=== PATIENT | female | born 1935 | race Hispanic/Latino ===

== ENCOUNTER 2017-04-14 12:26 | Inpatient (IN) | payer MEDICARE, BC ==
[2017-04-14] MEDS ORDERED: cefTRIAXone 1 gm 1 GM/100 ML BAG IVPB STA (13:07)
--- NOTE | 2017-04-14 13:43 | ED PDOC ---
Arrival/HPI - General Chief Complaint: Lower Extremity Problem/Injury Time Seen by Provider: 04/14/17 12:52 Historian: Patient, Family (daughters ) - History of Present Illness Narrative History of Present Illness (Text): 04/14/17 13:30 A 82 year old female whose past medical history includes diabetes, acute cholecysitis, ventral hernia, and leukocytosis, presents to the emergency department accompanied by daughters who state they discovered the patient's legs swollen, red, and draining 10 days ago. The patient states she has been unable to lay down because her legs were constantly draining and she was afraid to wet the bed. The patient's daughter states she has been trying to clean it with hydrogen peroxide and keeping it covered. The patient denies any pain to the area, but notes shortness of breath and gets easily winded. PMD: Dr. Omalley Time/Duration: > week (10 days ) Symptom Onset: Sudden Symptom Course: Unchanged Context: Home Past Medical History - Provider Review Nursing Documentation Reviewed: Yes - Infectious Disease Hx of Infectious Diseases: None - Tetanus Immunization Tetanus Immunization: Unknown - Cardiac Hx Hypertension: Yes - HEENT Hx Cataracts: Yes (bilateral sx 2012) - Endocrine/Metabolic Hx Diabetes Mellitus Type 2: Yes - Hematological/Oncological Hx Blood Transfusions: No Hx Blood Transfusion Reaction: No - Musculoskeletal/Rheumatological Hx Falls: No - Psychiatric Hx Depression: No Hx Emotional Abuse: No Hx Physical Abuse: No Hx Substance Use: No - Surgical History Hx Cholecystectomy: Yes ([address] hewitt) - Anesthesia Hx Anesthesia Reactions: No Hx Malignant Hyperthermia: No - Suicidal Assessment Feels Threatened In Home Enviroment: No Family/Social History - Physician Review Nursing Documentation Reviewed: Yes Family/Social History: No Known Family HX Smoking Status: Former Smoker Hx Alcohol Use: No Hx Substance Use: No Hx Substance Use Treatment: No Allergies/Home Meds Allergies/Adverse Reactions: Allergies No Known Allergies Allergy (Verified 04/14/17 23:35) Home Medications: Home Meds Medication Instructions Recorded Confirmed Acarbose [Precose] 100 mg PO DAILY 10/01/13 04/14/17 Aspirin [Bernarda Aspirin Children[facility]] 81 mg PO DAILY 10/01/13 04/14/17 Atorvastatin Calcium [Lipitor] 20 mg PO DAILY 10/01/13 04/14/17 metFORMIN [glucOPHAGE] 500 mg PO BID 10/01/13 04/14/17 Bisoprolol/HCTZ [Ziac 2.5-6.25 mg] 1 tab PO DAILY 04/14/17 04/14/17 GlipiZIDE [Glipizide] 10 mg PO DAILY 04/14/17 04/14/17 Omeprazole 20 mg PO DAILY 04/14/17 04/14/17 Valsartan/Hydrochlorothiazide 1 each PO DAILY 04/14/17 04/14/17 [Diovan Hct 320-25 mg Tablet] Review of Systems - Review of Systems Constitutional: Fatigue. absent: Fevers Eyes: absent: Vision Changes ENT: absent: Hearing Changes Respiratory: SOB, Cough Cardiovascular: Edema, FRASER. absent: Chest Pain, Palpitations Gastrointestinal: absent: Abdominal Pain, Nausea, Vomiting Genitourinary Female: absent: Dysuria, Frequency Musculoskeletal: Other (bilateral leg swelling and redness ). absent: Back Pain Skin: Rash, Cellulitis Neurological: absent: Headache, Dizziness, Focal Weakness Endocrine: absent: Polyuria Hemo/Lymphatic: absent: Easy Bleeding Physical Exam - Physical Exam Narrative Physical Exam (Text): 04/14/17 13:42 Head: Atraumatic. Normocephalic. Eyes: PERRL. EOMI. Conjunctivae are not pale. ENT: Mucous membranes are moist and intact. Oropharynx is clear and symmetric. Neck: Supple. Full ROM. Positive JVD. No meningeal signs. Cardiovascular: Irregular rate and rhythm, systolic murmur. Pulmonary/Chest: No evidence of respiratory distress. Rales at the bases right greater than left. Abdominal: Soft and non-distended. There is no tenderness. No rebound, guarding, or rigidity. No organomegaly. Good bowel sounds. Back: No CVA tenderness. Extremities: Bilateral lower extremity edema with clear but foul smelling drainage with erythema. Skin: Bilateral lower extremity edema and erythema with foul odor. Neurological: Alert, awake, and oriented. Motor and sensory exam intact. Psychiatric: Good eye contact. Normal interaction, affect, and behavior. Vital Signs Reviewed: Yes Vital Signs Temp Pulse Resp BP Pulse Ox 04/14/17 17:15 71 18 123/61 96 04/14/17 15:40 75 18 127/68 95 04/14/17 13:56 78 18 123/64 95 04/14/17 12:38 97.9 F 81 19 125/63 95 04/14/17 12:36 97.9 F 81 18 125/63 95 Temperature: Afebrile Pulse: Irregular Appearance: Positive for: Non-Toxic, Comfortable, Ill-Appearing Pain Distress: Mild Mental Status: Positive for: Alert and Oriented X 3 Medical Decision Making ED Course and Treatment: 04/14/17 13:43 Impression: A 82 year old female with bilateral lower extremity swelling and erythema. Patient on arrival noted to be in irregular rhythm. DENIES CHEST PAIN OR SOB. CXR consistent with pleural effusion and chf. Bilateral leg edema noted with foul odor. IV antibiotics ordered. Patient not in respiratory distress. CR elevated, will discuss diuretics with admitting team as no respiratory distress initially. Heparin bolus and drip ordered for new onset atrial fibrillation. Patient accepted by Dr. Gerardo Pelaez to his service. Progress Notes: 04/14/2017 15:23 Chest X-ray IMPRESSION: Small bilateral pleural effusion, right greater than left. Dictator: Arpan Chen MD Based on EKG, cannot exclude anteroseptal infarct although patient and family deny any chest pain or acute onset of symptoms, more gradual edema reported. Troponin 0.05, BNP elevated. On re-exam, denies any chest pain or shortness of breath. Based on lack of acute chest pain or acute sob, ST changes on EKG I feel at this time not consistent with acute HI although risk of cardiac disease discussed with patient and family and she will be admitted. ASA ordered by admitting physician. - Lab Interpretations Microbiology Results: Microbiology Results 04/14/17 14:53 Blood Blood Culture - Preliminary NO GROWTH AFTER 3 DAYS 04/14/17 14:12 Blood Blood Culture - Preliminary NO GROWTH AFTER 3 DAYS 04/14/17 15:50 Urine Urine Culture - Final Aerococcus Viridans Lab Results: 04/14/17 14:12 04/14/17 15:26 Lab Results 04/14/17 15:50: Urine Color Light yellow, Urine Appearance Cloudy, Urine pH 6.0 , Ur Specific Mcclusky 1.025, Urine Protein >=300 H, Urine Glucose (UA) Negative , Urine Ketones Negative, Urine Blood Trace-intact H, Urine Nitrate Negative, Urine Bilirubin Negative, Urine Urobilinogen 0.2, Ur Leukocyte Esterase Small H , Urine RBC 10 - 15, Urine WBC 25 - 30, Ur Epithelial Cells 1 - 3, Amorphous Sediment Few, Urine Bacteria Large, Urine Other Uyeast 04/14/17 15:26: Sodium 140, Chloride 106, Potassium 3.5 L, Carbon Dioxide 25, Anion Gap 12, BUN 35 H, Creatinine 2.3 H, Est GFR ( Amer) 25, Est GFR ( Non-Af Amer) 20, Random Glucose 119 H, Calcium 9.4, Total Bilirubin 0.4, AST 20 , ALT 32, Alkaline Phosphatase 197 H, Lactate Dehydrogenase 487, Total Creatine Kinase 50, Troponin I 0.05 D, NT-Pro-B Natriuret Pep 24689 H, Total Protein 6.3 , Albumin 3.3, Globulin 3.0, Albumin/Globulin Ratio 1.1 04/14/17 14:12: pO2 27 L, VBG pH 7.37, VBG pCO2 40.0, VBG HCO3 23.1, VBG Total CO2 24.3, VBG O2 Sat (Calc) 57.0, VBG Base Excess -2.0 L, VBG Potassium 8.2 H*, Sodium 134.0, Chloride 108.0 H, Glucose 107 H, Lactate 1.5, FiO2 21.0, Venous Blood Potassium 8.2 H* 04/14/17 14:12: PT 13.0 H, INR 1.19 H, APTT 30.7 04/14/17 14:12: WBC 10.9, RBC 3.93, Hgb 11.5 L, Hct 36.3, MCV 92.4, MCH 29.3, MCHC 31.7, RDW 15.0 H, Plt Count 284, MPV 11.3 H, Gran % 74.0 H, Lymph % (Auto) 15.8 L, Imperial % (Auto) 6.3 H, Eos % (Auto) 3.6, Baso % (Auto) 0.3, Gran # 8.06 H , Lymph # 1.7, Imperial # 0.7 H, Eos # 0.4, Baso # 0.03 I have reviewed the lab results: Yes - RAD Interpretation Radiology Orders: 04/14/17 13:06 CHEST PORTABLE [RAD] Stat - EKG Interpretation EKG Interpretation (Text): 04/14/17 19:22 EKG atrial fibrillation rate of 86 with intraventricular block, anterior st changes Interpreted by ED Physician: Yes Type: 12 lead EKG Comparison: Different from prev. EKG - Medication Orders Current Medication Orders: Discontinued Medications Acarbose (Precose 50 Mg Tab) 100 mg PO DAILY [facility] Last Admin: 04/17/17 09:54 Dose: 100 mg Albuterol/Ipratropium (Duoneb 3 Mg/0.5 Mg (3 Ml) Ud) 3 ml IH [id number] PRN PRN Reason: Shortness of Breath Last Admin: 04/14/17 20:38 Dose: 3 ml Apixaban (Eliquis) 2.5 mg PO BID [facility] PRN Reason: Protocol Last Admin: 04/16/17 17:05 Dose: 2.5 mg Aspirin (Aspirin Chewable) 81 mg PO DAILY [facility] Last Admin: 04/17/17 09:55 Dose: 81 mg Atorvastatin Calcium (Lipitor) 20 mg PO HS [facility] Last Admin: 04/16/17 21:14 Dose: 20 mg Betamethasone/Clotrimazole (Lotrisone) 0 gm TOP BID [facility] Last Admin: 04/17/17 13:12 Dose: 1 applic Furosemide (Lasix) 40 mg IVP DAILY [facility] Last Admin: 04/15/17 16:09 Dose: 40 mg MAR Blood Pressure Document 04/15/17 16:09 [facility] (Rec: 04/15/17 16:10 [facility] [id number]) Blood Pressure Blood Pressure (100/60-150/90) 116/46 IVP Administration Document 04/15/17 16:09 JFR (Rec: 04/15/17 16:10 [facility] [id number]) Charges for Administration # of IVP Administrations 1 Furosemide (Lasix) 20 mg IVP DAILY [facility] Last Admin: 04/16/17 09:36 Dose: 20 mg MAR Blood Pressure Document 04/16/17 09:36 [id number] (Rec: 04/16/17 09:56 [id number] [id number]) Blood Pressure Blood Pressure (100/60-150/90) 120/75 IVP Administration Document 04/16/17 09:36 [id number] (Rec: 04/16/17 09:56 [id number] [id number]) Charges for Administration # of IVP Administrations 1 Glipizide (Glucotrol) 10 mg PO BID [facility] Last Admin: 04/17/17 09:55 Dose: 10 mg Heparin Sodium (Porcine) (Heparin) 5,700 units 70 units/kg (5700 units) IV ONCE ONE PRN Reason: Protocol Stop: 04/14/17 15:24 Last Admin: 04/14/17 17:04 Dose: 5,700 units eMAR Start Stop Document 04/14/17 17:04 [facility] (Rec: 04/14/17 17:04 HI [id number]) Intravenous Solution Start Date 04/14/17 Start Time 17:04 Hydrochlorothiazide (Hydrodiuril) 25 mg PO DAILY [facility] Last Admin: 04/15/17 10:46 Dose: 25 mg Ceftriaxone Sodium 1 gm/ (Dextrose) 100 mls @ 200 mls/hr IVPB ONCE STA Stop: 04/14/17 15:40 Last Admin: 04/14/17 15:44 Dose: 200 mls/hr eMAR Start Stop Document 04/14/17 15:44 [facility] (Rec: 04/14/17 15:44 HI [id number]) Intravenous Solution Start Date 04/14/17 Start Time 15:44 Heparin Sodium/Sodium Chloride (Heparin 25325 Units/250ml 1/2 Normal Saline) 25 ,000 units in 250 mls @ 15.137 mls/hr IV .[id number] PRN; Protocol; 18 UNITS/KG/HR PRN Reason: ADJUST RATE PER PROTOCOL Last Titration: 04/15/17 20:09 Dose: 9 units/kg/hr, 7.569 mls/hr Titration Intervention Document 04/15/17 20:[address] [facility] (Rec: 04/15/17 20:[address] [facility] [id number]) Titration Intake Titration Intake 0 Cumulative Intake 0 Cumulative Intake (Rx) 250 Waste Amount 0 Container Volume 250 Titration Dosing Titration Dose 9 IV Rate 7.569 Intake/Decrease Decreased Cumulative Dose 05257 Potassium Chloride (Potassium Chloride 10 Meq/100 Ml) 10 meq in 100 mls @ 100 mls/hr IVPB Q1H [facility] Stop: 04/15/17 14:44 Last Admin: 04/15/17 18:01 Dose: 100 mls/hr eMAR Start Stop Document 04/15/17 18:01 JFR (Rec: 04/15/17 18:01 JFR [id number]) Intravenous Solution Start Date 04/15/17 Start Time 18:01 Ceftriaxone Sodium (Rocephin 1 Gram Ivpb) 1 gm in 100 mls @ 100 mls/hr IVPB DAILY [facility] PRN Reason: Protocol Last Admin: 04/17/17 09:59 Dose: 100 mls/hr eMAR Start Stop Document 04/17/17 09:59 ANGELICA (Rec: 04/17/17 10:00 Tracey [id number]) Intravenous Solution Start Date 04/17/17 Start Time 09:59 End Date 04/17/17 End time 10:59 Total Infusion Time 60 Insulin Human Regular (Humulin R Low) 0 units SC ACHS [facility] PRN Reason: Protocol Last Admin: 04/16/17 21:53 Dose: Not Given Non-Admin Reason: Blood Sugar Parameter MAR Blood Glucose Document 04/16/17 21:53 URI (Rec: 04/16/17 21:53 BK [id number]) Blood Glucose Finger Stick Blood Glucose (70-120) 176 Oxycodone/Acetaminophen (Percocet 5/325 Mg Tab) 1 tab PO Q4H PRN PRN Reason: Pain, moderate (4-7) Stop: 04/17/17 19:59 Last Admin: 04/17/17 12:27 Dose: 1 tab [facility] Pain Assessment Document 04/17/17 12:27 Tracey (Rec: 04/17/17 12:28 [id number]) Pain Reassessment Is this a pain reassessment? Yes Sleep Is patient sleeping during reassessment? No Presence of Pain Presence of Pain Yes Pain Scale Used Pain Scale Used Numeric Location Left, Right or Bilateral Bilateral Pain Location Body Site Leg Description Description Intermittent Pain Behavior Moaning Pneumococcal Polyvalent Vaccine (Pneumovax 23 Vaccine) 0.5 ml IM .ONCE ONE Stop: 04/14/17 23:57 Valsartan (Diovan) 320 mg PO DAILY [facility] Last Admin: 04/16/17 09:56 Dose: 320 mg - Scribe Statement The provider has reviewed the documentation as recorded by the Yojana Kaminski Provider Scribe Attestation: All medical record entries made by the Scribe were at my direction and personally dictated by me. I have reviewed the chart and agree that the record accurately reflects my personal performance of the history, physical exam, medical decision making, and the department course for this patient. I have also personally directed, reviewed, and agree with the discharge instructions and disposition. Disposition/Present on Arrival - Present on Arrival Any Indicators Present on Arrival: Yes History of DVT/PE: No History of Uncontrolled Diabetes: Yes Urinary Catheter: No History of Decub. Ulcer: No History Surgical Site Infection Following: None - Disposition Have Diagnosis and Disposition been Completed?: Yes Diagnosis: New onset atrial fibrillation, CHF (congestive heart failure), Cellulitis, Leg edema, Renal insufficiency Disposition: HOSPITALIZED Disposition Time: 14:00 Patient Plan: Admission, Telemetry Condition: SERIOUS
[2017-04-14 14:24] LABS: BASO # 0.03 K/mm3 (0.0-2.0); BASO % 0.3 % (0.0-3.0); EOS # 0.4 (0.0-0.7); EOS % 3.6 % (1.5-5.0); GRAN # 8.06 (1.4-6.5); HEMATOCRIT 36.3 % (36.0-48.0); LYMPH # 1.7 (1.2-3.4); LYMPH % 15.8 % (22.0-35.0); MEAN CELL VOLUME 92.4 fl (80.0-105.0); MEAN CORPUSCULAR HEMOGLOBIN 29.3 pg (25.0-35.0); MEAN CORPUSCULAR HGB CONC 31.7 g/dl (31.0-37.0); MEAN PLATELET VOLUME 11.3 fl (7.0-11.0); MONO # 0.7 (0.1-0.6); MONO % 6.3 % (1.0-6.0); VENOUS BLOOD PH 7.37 (7.32-7.43); WHITE BLOOD COUNT 10.9 10^3/ul (4.5-11.0)
[2017-04-14 14:37] LABS: INR 1.19 (0.93-1.08); PARTIAL THROMBOPLASTIN TIME 30.7 Seconds (25.1-36.5)
[2017-04-14] MEDS ORDERED: Heparin25000 units/250ml 1/2NS 25,000 UNITS/250 ML BAG IV PRN (15:23)
--- NOTE | 2017-04-14 15:25 | RAD ---
HISTORY: leg edema COMPARISON: 10/01/2013 FINDINGS: LUNGS: No pulmonary infiltrate. PLEURA: Small bilateral pleural effusion, right greater than left. CARDIOVASCULAR: Normal heart size. OSSEOUS STRUCTURES: No significant abnormalities. VISUALIZED UPPER ABDOMEN: Normal. OTHER FINDINGS: None. IMPRESSION: Small bilateral pleural effusion, right greater than left.
[2017-04-14 15:45] LABS: ALB/GLOB RATIO 1.1 (1.1-1.8); BILIRUBIN,TOTAL 0.4 mg/dL (0.2-1.3); CALCIUM 9.4 mg/dL (8.4-10.5); POTASSIUM 3.5 mmol/L (3.6-5.0); TOTAL PROTEIN 6.3 g/dL (5.8-8.3)
[2017-04-14 15:55] LABS: TROPONIN I 0.05 ng/mL
[2017-04-14 16:03] LABS: URINE BILIRUBIN NEGATIVE (NEGATIVE); URINE BLOOD TRACE-INTACT (NEGATIVE); URINE GLUCOSE (UA) NEGATIVE (NEGATIVE); URINE KETONE NEGATIVE (NEGATIVE); URINE LEUKOCYTE ESTERASE SMALL Leu/uL (NEGATIVE); URINE PROTEIN >=300 mg/dL (<30 mg/dL); URINE UROBILINOGEN 0.2 E.U./dL (<1 E.U./dL)
[2017-04-14 16:07] LABS: URINE APPEARANCE CLOUDY (CLEAR); URINE COLOR LIGHT YELLOW (YELLOW)
[2017-04-14 16:11] LABS: URINE WBC 25 - 30 /hpf (0-6)
[2017-04-14 16:12] LABS: URINE AMORPHOUS SEDIMENT FEW; URINE BACTERIA LARGE (NEG)
[2017-04-14] MEDS: Heparin25000 units/250ml 1/2NS 25,000 UNITS/250 ML BAG IV PRN (17:19)
[2017-04-14] MEDS ORDERED: Heparin 25,000units in D5W/250 ML BAG IV PRN (17:21)
[2017-04-14] MEDS ORDERED: Albuterol-Ipratrop 3 mg / 0.5 (3 ml) UD IH PRN (19:28)
[2017-04-14] MEDS: Oxycodone/Acetaminophen 5/325 mg Tab PO PRN (20:44)
[2017-04-14] MEDS: Insulin Reg-LOW-Coverage SC SCH (21:49)
[2017-04-14] MEDS ORDERED: Pneumococcal 23-Valent Vaccine IM ONE (23:56)
[2017-04-14] MEDS ORDERED: Influenza Vaccine 60 mcg/0.5 mL SYR (4YR UP) IM ONE (23:56)
[2017-04-15] MEDS: Oxycodone/Acetaminophen 5/325 mg Tab PO PRN ×4 (01:00→20:24)
[2017-04-15] MEDS: Insulin Reg-LOW-Coverage SC SCH ×4 (07:49→22:13)
[2017-04-15] MEDS ORDERED: VALSARTAN PO SCH (10:00)
[2017-04-15] MEDS ORDERED: HYDROCHLOROTHIAZIDE PO SCH (10:00)
--- NOTE | 2017-04-15 10:26 | CARD ---
APPROVED REPORT EKG Measurement Heart [id number] <Conclusion> Atrial fibrillation Nonspecific intraventricular block Cannot rule out Anteroseptal infarct, age undetermined Abnormal ECG
[2017-04-15] MEDS: Heparin25000 units/250ml 1/2NS 25,000 UNITS/250 ML BAG IV PRN (18:11)
--- NOTE | 2017-04-15 22:49 | CON ---
DATE: 04/15/2017 REQUESTING PHYSICIAN: Dr. Pelaez. REASON FOR CONSULTATION: Atrial fibrillation. HISTORY: This is an 82-year-old woman with a history of diabetes and hypertension who presented to the emergency room because of increased swelling and erythema of both lower extremities. She is found to have significant cellulitis and was admitted for observation. Legs were relatively swollen, but with diuretic use and overnight rest. Her edema is improved. Apparently she had some weeping of her skin prior to admission. She denies any prior cardiac history. She was noted to be in atrial fibrillation upon admission. She denies any prior cardiac issues past history is notable for prior pulses cholecystectomy and hernia repair. MEDICATIONS: Her medications at home included Precose, aspirin, Lipitor, Ziac, glipizide, Diovan HCT, omeprazole, Glucophage. ALLERGIES: SHE HAS NO REPORTED ALLERGIES. SOCIAL HISTORY: She quit smoking over 40 years ago. She denies alcohol use. She is and lives with the family. FAMILY HISTORY: Both parents from age-related illnesses. There is no premature history of heart disease. The 10-point review of systems is notable mainly for the problems as mentioned above. PHYSICAL EXAMINATION: GENERAL: She is an elderly woman who appears comfortable at rest. VITAL SIGNS: Her blood pressure is 130/70 with pulse of 82 in atrial fibrillation, respirations are 14. She is currently afebrile. HEENT: No JVD. CHEST: Few scattered rhonchi heard. HEART: PMI displaced laterally with systolic murmur at the base of the left sternal border. ABDOMEN: Soft and nontender. Normoactive bowel sounds. EXTREMITIES: Moderate to severe erythema of both lower extremities, a trace edema is noted. SKIN: Warm and dry. PSYCHIATRIC: Normal mood and affect. NEUROLOGIC: No gross motor sensory is appreciable. DIAGNOSTIC DATA: Her white count is 10.9 hemoglobin and hematocrit 11.5 and 36.3 with platelet count of 284,000. She is on IV heparin and her last PTT was 141, potassium 3.5, BUN and creatinine 35 and 2.3. BNP is 11,600. TSH 1.52. Chest x-ray reveals normal cardiac silhouette with small bilateral effusions. Electrocardiogram reveals atrial fibrillation with a nonspecific intraventricular conduction delay. Prior anteroseptal myocardial fraction cannot be excluded. IMPRESSION: 1. Leg cellulitis and was in the setting of mildly decompensated heart failure, etiology uncertain, may have some degree of hypertensive heart disease or subclinical ischemic heart disease given age and risk factors. 2. History of hypertension and diabetes. 3. Leg cellulitis. RECOMMENDATIONS: 1. She is not currently on rate control therapy and has a controlled ventricular response suggestive of some intrinsic conduction system disease. As long as her heart rate does not accelerate, no beta-monroe therapy or other beta tonic agent is necessary. IV heparin will be continued for now. As long as no contraindication or chronic anticoagulation should be initiated. Given her high CHADS-VASc score. 2. An echocardiogram has been ordered and will be reviewed. Sodium and fluid restriction are advised for now. All the above was discussed in detail with the patient and daughter at bedside. We will continue to follow any further issues as appropriate. Sameer Dougherty MD
--- NOTE | 2017-04-16 01:38 | HP ---
The patient of Dr. Omalley being covered by Dr. Pelaez. HISTORY OF PRESENT ILLNESS: According to the patient's daughter who is at bedside that her both legs have been getting swollen increasingly for the last 2 weeks, got worse yesterday. She started to have fluid coming out with significant redness along with shortness of breath, so she saw Dr. Omalley almost a week ago. At that point, she was not short of breath. When with the recent finding of leg swelling and redness, she was notified by Dr. Omalley, who advised her to come to Emergency Room. PAST MEDICAL HISTORY: Significant past medical history of: 1. Ventral hernia. 2. History of cholecystectomy. 3. Yzb-ecefrjv-rnzzurumi diabetes. 4. History of hyperlipidemia. SOCIAL HISTORY: She is living with her daughter. She is not smoking anymore, she quit 40 years ago. Socially drinks. She is a homemaker. ALLERGIES: SHE IS NOT ALLERGIC TO ANY MEDICATIONS. MEDICATIONS AT HOME: She is on metformin, valsartan 320 daily, omeprazole 20 mg daily, glipizide 10 mg daily, Bisoprolol, atorvastatin, aspirin, and Acarbose. REVIEW OF SYSTEMS: Significant for bilateral leg swelling, redness, burning, and shortness of breath. PHYSICAL EXAMINATION: GENERAL: She is awake, alert, oriented, and communicative. VITAL SIGNS: She is afebrile, pulse 68, respirations 18, and blood pressure 116/46. LUNGS: Bilateral good airflow. No rhonchi. Posteriorly few soft crackles. HEART: Irregular, but rate controlled. NEUROLOGICAL: She is awake, alert, oriented, and communicative. LABORATORY DATA: WBC 10.9, hemoglobin 11.5, hematocrit 36, and platelets 284. PTT is 141. Chemistry: Blood sugar is 150, otherwise it is 140 with treatment. Sodium 140, potassium 3.5, chloride 106, CO2 25, BUN 35, creatinine 2.3, and blood sugar 171. BNP is 11,600. Urinalysis; small leukocyte esterase. ASSESSMENT: 1. New onset of atrial fibrillation. 2. Tpp-ywjlyrw-xxeozhudw diabetes. 3. Hypertension. 4. Bilateral leg edema. 5. Right leg cellulitis. 6. Bilateral pleural effusion, right more than the left. 7. Congestive heart failure. Echocardiogram done in 09/2013 showed biatrial enlargement and concentric left ventricular hypertrophy, tricuspid regurgitation, and diastolic dysfunction. PLAN: The patient is currently on valsartan and aspirin. She is on nebulizer treatment. She is on glipizide. She is currently on heparin and Rocephin. It has to be decided that the patient should be on oral anticoagulant. I will discuss with the income tax investigator and the patient. In the meantime, she will receive Rocephin, diuretics, and monitor for electrolyte and management. Jean Pierre Giles MD
--- NOTE | 2017-04-16 04:47 | CON ---
DATE: The patient is seen early this morning in room 378, bed 2. CHIEF COMPLAINT: Weakness times several days. HISTORY OF PRESENT ILLNESS: This is an 82-year-old female with past medical history significant for diabetes mellitus, dyslipidemia, hypertension, carotid disease, pulmonary hypertension, and renal disease. The patient had a history of laparoscopic cholecystectomy on 10/02/2013 with NO KNOWN ALLERGIES, now was admitted to the emergency room where seen by Dr. Shamar Brown for her lower extremity problem and injury. The patient discovered that legs were swollen the patient was also short of breath and dyspnea on exertion. No chest pain, no fevers, and no chills. No nausea or vomiting. No diarrhea or constipation. PAST MEDICAL HISTORY: Significant for diabetes, dyslipidemia, hypertension, carotid disease, pulmonary hypertension, and renal disease. PAST SURGICAL HISTORY: Significant for laparoscopic cholecystectomy on 10/02/2013, carpal tunnel surgery, and bilateral cataract surgery. ALLERGIES: THE PATIENT HAS NO KNOWN ALLERGIES. MEDICATIONS: The patient's medications at home includes the patient to be on metformin, glipizide, and Lipitor. PHYSICAL EXAMINATION: VITAL SIGNS: On exam, the patient is seen early this morning, comfortable with a temperature of 98, respiratory rate of 18 goes up to 20, and blood pressure is 120/90 with a heart rate of 103. HEENT: Unremarkable. NECK: Supple. LUNGS: Have decreased breath sounds. HEART: Normal S1 and S2. ABDOMEN: Soft and nontender. No rebound. No guarding. No masses. EXTREMITIES: Examination of lower extremities with significant bilateral lower extremity edema, most likely with stasis. No break in her skin. No discharge. LABORATORY DATA: Reveals a white count of 10,000, hemoglobin of 11, platelets of 284, and coagulation is noted. The blood gases are reviewed, BUN of 35; creatinine is 2.3, it was 1.8 in September and now it is up to 2.3; and BNP is 11,600. Urinalysis reveals 25 to 30 wbc's, large bacteria, and blood cultures no growth, the leg culture has gram-negative bryanna and gram-positive cocci unchanged, and urine culture is pending. ASSESSMENT AND PLAN: This is an 82-year-old with diabetes and dyslipidemia, hypertension, carotid disease, pulmonary hypertension and renal disease, now presenting with bilateral lower extremity cellulitis with gram-negative bryanna and gram-positive cocci and acute kidney injury, creatinine changing from 1.8 to 2.3 in a patient with an ejection fraction at least of 62% in 2013, was consistent with acute congestive heart failure with preserved ejection fraction on top of chronic congestive heart failure. We will treat the patient with Zosyn and check on the cultures and follow the patient's clinical response, we will follow closely with you. Chago Hilliard MD
[2017-04-16 07:59] LABS: BILIRUBIN,TOTAL 0.3 mg/dL (0.2-1.3); CALCIUM 9.7 mg/dL (8.4-10.5); POTASSIUM 4.6 mmol/L (3.6-5.0); TOTAL PROTEIN 6.4 g/dL (5.8-8.3)
[2017-04-16 08:05] LABS: THYROID STIMULATING HORMONE 1.68 mIU/mL (0.46-4.68)
--- NOTE | 2017-04-16 08:16 | CP.PCM.PN ---
Subjective - Date & Time of Evaluation Date of Evaluation: 04/16/17 Time of Evaluation: 07:00 - Subjective Subjective: Stable on 2R. She feels better. Less edema. No SOB, CP V/S noted. AF PE: Lungs: few rhonchi Cor.: irreg S1S2 Abd.: soft Ext.: cellulitis Neuro.: alert I/O= 1170/800 recorded BC X 2 NG at 48 hrs. Urine C+S: + GPC Labs noted: PTT = 75, Cr.= 2.5 Echo done: Nl LV fx. see report Objective - Vital Signs/Intake and Output Vital Signs (last 24 hours): Temp Pulse Resp BP Pulse Ox 98.4 F 73 19 141/79 96 04/16/17 06:00 04/16/17 06:00 04/16/17 06:00 04/16/17 06:00 04/16/17 06:00 Intake and Output: 04/16/17 04/16/17 06:59 18:59 Intake Total 420 Output Total 400 Balance 20 - Medications Medications: Current Medications Acarbose (Precose 50 Mg Tab) 100 mg PO DAILY [facility] Last Admin: 04/15/17 10:46 Dose: 100 mg Albuterol/Ipratropium (Duoneb 3 Mg/0.5 Mg (3 Ml) Ud) 3 ml IH [id number] PRN PRN Reason: Shortness of Breath Last Admin: 04/14/17 20:38 Dose: 3 ml Aspirin (Aspirin Chewable) 81 mg PO DAILY [facility] Last Admin: 04/15/17 10:46 Dose: 81 mg Atorvastatin Calcium (Lipitor) 20 mg PO HS [facility] Last Admin: 04/15/17 21:17 Dose: 20 mg Furosemide (Lasix) 40 mg IVP DAILY [facility] Last Admin: 04/15/17 16:09 Dose: 40 mg Glipizide (Glucotrol) 10 mg PO BID [facility] Last Admin: 04/15/17 18:01 Dose: 10 mg Heparin Sodium/Sodium Chloride (Heparin 70472 Units/250ml 1/2 Normal Saline) 25 ,000 units in 250 mls @ 15.137 mls/hr IV .[id number] PRN; Protocol; 18 UNITS/KG/HR PRN Reason: ADJUST RATE PER PROTOCOL Last Titration: 04/15/17 20:09 Dose: 9 units/kg/hr, 7.569 mls/hr Ceftriaxone Sodium (Rocephin 1 Gram Ivpb) 1 gm in 100 mls @ 100 mls/hr IVPB DAILY [facility] PRN Reason: Protocol Insulin Human Regular (Humulin R Low) 0 units SC ACHS [facility] PRN Reason: Protocol Last Admin: 04/15/17 22:13 Dose: Not Given Oxycodone/Acetaminophen (Percocet 5/325 Mg Tab) 1 tab PO Q4H PRN PRN Reason: Pain, moderate (4-7) Stop: 04/17/17 19:59 Last Admin: 04/15/17 20:24 Dose: 1 tab Valsartan (Diovan) 320 mg PO DAILY [facility] Last Admin: 04/15/17 10:46 Dose: 320 mg - Labs Labs: 04/16/17 06:30 PT 13.0 SECONDS (9.4-12.5) H 04/14/17 14:12 INR 1.19 (0.93-1.08) H 04/14/17 14:12 APTT 75.3 Seconds (25.1-36.5) H 04/16/17 02:00 Assessment and Plan - Assessment and Plan (Free Text) Assessment: Edema/Cellulitis LE's AF CHF/DD Pleural effusions CKD Diabetes HBP Former Smoker GB Surgery Plan: Start warfarin (or low dose Eliquis) Decrease IV Lasix 20/day AB, as per ID Monitor: I/O, labs, PTT's, INR's, renal fx., cultures, etc OOB as jevon
[2017-04-16 08:34] LABS: FREE T4 1.14 ng/dL (0.78-2.19)
--- NOTE | 2017-04-16 09:06 | CARD ---
APPROVED REPORT EXAM: Two-dimensional and M-mode echocardiogram with Doppler and color Doppler. Other Information Quality : AverageRhythm : INDICATION Dyspnea Atrial Fibrillation , Edema/Cellulitis 2D DIMENSIONS Left Atrium (2D)4.5 (1.6-4.0cm)IVSd1.2 (0.7-1.1cm) LVDd1.2 (3.9-5.9cm)LVOT Diameter2.0 (1.8-2.4cm) PWd1.5 (0.7-1.1cm)LVDs2.7 (2.5-4.0cm) FS (%) 33.4 %LVEF (%)62.0 (>50%) M-Mode DIMENSIONS Aortic Root2.80 (2.2-3.7cm)Aortic Cusp Exc.1.10 (1.5-2.0cm) Aortic Valve AoV Peak Kardwghm394.0cm/sAoV VTI50.2cmAO Peak GR.22mmHg LVOT Peak Zgjnxwaa80.2cm/sLVOT VTI15.70cmAO Mean GR.12mmHg ANUP (VMAX)1.15kp1SWV (VTI)0.98cm2 Mitral Valve MV OOA90weB/A ratio0.0MVA (PHT)2.62cm2 TDI E/Lateral E'0.0E/Medial E'0.0 Pulmonary Valve PV Peak Biypcrse35.2cm/sPV Peak Grad.2mmHg Tricuspid Valve TR Peak Ovnkhnqk046tu/sRAP HIHMVOIF67ewZoZA Peak Gr.52mmHg [id number] LEFT VENTRICLE The left ventricle is normal size. There is mild concentric left ventricular hypertrophy. The left ventricular function is normal. The left ventricular ejection fraction is within the normal range. There is normal LV segmental wall motion. RIGHT VENTRICLE The right ventricle is normal size. ATRIA The left atrium is moderately dilated. The right atrium size is normal. The interatrial septum is intact with no evidence for an atrial septal defect. AORTIC VALVE The aortic valve is moderately calcified. There is mild valvular aortic stenosis. MITRAL VALVE The mitral valve is moderately thickened especially the posterior leaflet which is immobile. Possible mild mitral stenosis. Mitral annular calcification is moderate. Mitral regurgitation is moderate. TRICUSPID VALVE The tricuspid valve is normal in structure. There is moderate tricuspid regurgitation. There is moderate-severe pulmonary hypertension. GREAT VESSELS The aortic root is normal in size. PERICARDIAL EFFUSION There is no pericardial effusion. <Conclusion> The left ventricle is normal size. There is mild concentric left ventricular hypertrophy. The left ventricular function is normal. The aortic valve is moderately calcified. There is mild valvular aortic stenosis. The mitral valve is moderately thickened especially the posterior leaflet which is immobile. Possible mild mitral stenosis. Mitral regurgitation is moderate. There is moderate tricuspid regurgitation. There is moderate-severe pulmonary hypertension.
[2017-04-16] MEDS: Insulin Reg-LOW-Coverage SC SCH ×4 (09:29→21:53)
[2017-04-16] MEDS: Oxycodone/Acetaminophen 5/325 mg Tab PO PRN ×2 (09:57→21:13)
[2017-04-16] MEDS: cefTRIAXone 1 gm 1 GM/100 ML BAG IVPB SCH (09:58)
--- NOTE | 2017-04-16 19:04 | PN ---
DATE: SUBJECTIVE: The patient is an 82-year-old seen and examined, sitting in chair, seems to be comfortable, still has bilateral leg swelling and erythema and hurts to touch. No nausea or vomiting. No diarrhea. No fever. No chills. PHYSICAL EXAMINATION VITAL SIGNS: She is afebrile, pulse 72, respirations 24 and blood pressure 151/71. LUNGS: Bilateral fair airflow. No rhonchi or crackle. HEART: S1 and S2 audible. Regular rate controlled. ABDOMEN: Soft, obese and nontender. No rebound. No guarding. NEUROLOGIC: She is awake, alert and oriented. EXTREMITIES: Bilateral leg +2 edema with erythema on both shins. LABORATORY DATA: Her PTT is 50.4. Chemistry: Sodium 138, potassium 4.6, chloride 106, CO2 23, BUN 38, creatinine 2.5 and blood sugar of 151. LFT's are within normal limits. Her leg wound culture positive for Enterobacter cloacae, Enterococcus faecalis. ASSESSMENT: 1. Bilateral leg cellulitis. 2. New onset of atrial fibrillation. 3. Non-insulin dependent diabetes. 4. Bilateral leg edema. 5. Bilateral pleural effusion. 6. Congestive heart failure. 7. Concentric left ventricular hypertrophy. PLAN: We will discontinue heparin. We will start the patient on Eliquis. Continue nebulizer treatment and monitor blood sugar. TCU evaluation has been requested. Continue on Rocephin. Once the patient is accepted, she will be transferred to TCU. Jean Pierre Giles MD
--- NOTE | 2017-04-16 21:34 | PN ---
DATE: 04/16/2017 SUBJECTIVE: Patient is in bed in no acute distress, nontoxic. OBJECTIVE: VITAL SIGNS: Temperature is 98, blood pressure is 150/70, respiratory rate 16. HEENT: Unremarkable. NECK: Supple. LUNGS: Decreased breath sounds. HEART: Normal S1, S2. ABDOMEN: Soft. Laboratory examination reveals the patient's white count is 10,000, hemoglobin of 11 and chemistries are noted, creatinine is 2.5. Microbiology reveals the urine cultures are gram-positive cocci. Right leg cultures Enterobacter and Enterococcus. The blood cultures were negative.. Enterobacter is pansensitive. Enterococcus sensitive to ampicillin. Review of orders reveals the patient to be on ceftriaxone. ASSESSMENT/PLAN This is an 82-year-old with diabetes, dyslipidemia, hypertension, carotid disease, pulmonary hypertension, renal disease, presenting with bilateral lower extremity cellulitis which is greatly improved today and a gram-positive cocci in the urine, patient with acute congestive heart failure with preserved ejection fraction on top of chronic congestive heart failure. Currently, the patient is on ceftriaxone. We will check on the identification and change the antibiotics accordingly. Chago Hilliard MD
[2017-04-17 06:39] LABS: CALCIUM 9.7 mg/dL (8.4-10.5)
[2017-04-17 06:44] VITALS: O2SAT 97
--- NOTE | 2017-04-17 08:10 | CP.PCM.PN ---
Subjective - Date & Time of Evaluation Date of Evaluation: 04/17/17 Time of Evaluation: 07:00 - Subjective Subjective: Stable on 2R. She feels better. Less edema but still leg pain. No SOB, CP. Not OOB yet. V/S noted. AF PE: Lungs: few rhonchi Cor.: irreg S1S2 Abd.: soft Ext.: cellulitis Neuro.: alert I/O= 1045/100 recorded BC X 2 NG at 48 hrs. Urine C+S: + GPC. Wound C+S: + Labs noted: Cr.= 2.6, K+= 5.0 Echo done: Nl LV fx. Mild . Possible mild MS, moderate MR and TR, moderate/ severe PH Objective - Vital Signs/Intake and Output Vital Signs (last 24 hours): Temp Pulse Resp BP Pulse Ox 98.1 F 82 21 120/74 97 04/17/17 06:00 04/17/17 06:00 04/17/17 06:00 04/17/17 06:00 04/17/17 06:00 Intake and Output: 04/17/17 04/17/17 06:59 18:59 Intake Total 120 Output Total 100 Balance 20 - Medications Medications: Current Medications Acarbose (Precose 50 Mg Tab) 100 mg PO DAILY [facility] Last Admin: 04/16/17 10:07 Dose: 100 mg Albuterol/Ipratropium (Duoneb 3 Mg/0.5 Mg (3 Ml) Ud) 3 ml IH [id number] PRN PRN Reason: Shortness of Breath Last Admin: 04/14/17 20:38 Dose: 3 ml Apixaban (Eliquis) 2.5 mg PO BID [facility] PRN Reason: Protocol Last Admin: 04/16/17 17:05 Dose: 2.5 mg Aspirin (Aspirin Chewable) 81 mg PO DAILY [facility] Last Admin: 04/16/17 09:36 Dose: 81 mg Atorvastatin Calcium (Lipitor) 20 mg PO HS [facility] Last Admin: 04/16/17 21:14 Dose: 20 mg Furosemide (Lasix) 20 mg IVP DAILY [facility] Last Admin: 04/16/17 09:36 Dose: 20 mg Glipizide (Glucotrol) 10 mg PO BID [facility] Last Admin: 04/16/17 17:05 Dose: 10 mg Ceftriaxone Sodium (Rocephin 1 Gram Ivpb) 1 gm in 100 mls @ 100 mls/hr IVPB DAILY [facility] PRN Reason: Protocol Last Admin: 04/16/17 09:58 Dose: 100 mls/hr Insulin Human Regular (Humulin R Low) 0 units SC ACHS [facility] PRN Reason: Protocol Last Admin: 04/16/17 21:53 Dose: Not Given Oxycodone/Acetaminophen (Percocet 5/325 Mg Tab) 1 tab PO Q4H PRN PRN Reason: Pain, moderate (4-7) Stop: 04/17/17 19:59 Last Admin: 04/16/17 21:13 Dose: 1 tab Valsartan (Diovan) 320 mg PO DAILY [facility] Last Admin: 04/16/17 09:56 Dose: 320 mg - Labs Labs: 04/17/17 05:15 PT 13.0 SECONDS (9.4-12.5) H 04/14/17 14:12 INR 1.19 (0.93-1.08) H 04/14/17 14:12 APTT 50.4 Seconds (25.1-36.5) H 04/16/17 07:57 Assessment and Plan - Assessment and Plan (Free Text) Assessment: Edema/Cellulitis LE's UTI AF CHF/DD Pleural effusions CKD Diabetes HBP Former Smoker GB Surgery Plan: Low dose Eliquis for now. Hold Lasix and valsartan. Labs in AM AB As per JASON and Dr. Giles Monitor: I/O, labs, renal fx., cultures, etc OOB as jevon TCU Eval.
[2017-04-17] MEDS: cefTRIAXone 1 gm 1 GM/100 ML BAG IVPB SCH (09:59)
[2017-04-17] MEDS ORDERED: Clotrimazole/Betamethasone Cream(15 gm) TOP SCH (11:45)
[2017-04-17 12:08] VITALS: BP 114/68; PULSE 74; RESP 18; TEMP 98.4
[2017-04-17] MEDS: Oxycodone/Acetaminophen 5/325 mg Tab PO PRN (12:27)
--- NOTE | 2017-04-17 22:31 | PN ---
DATE: 04/17/2017 SUBJECTIVE: The patient is in bed, in no acute distress. PHYSICAL EXAMINATION VITAL SIGNS: Temperature is 98, blood pressure is 120/70, respiratory rate of 16. HEENT: Unremarkable. NECK: Supple. LUNGS: Decreased breath sound. HEART: Normal S1 and S2. ABDOMEN: Soft and nontender. LABORATORY DATA: Reveals the patient's white count is 10,000, hemoglobin of 11. BUN of 41, creatinine of 2.6. Right leg culture is Enterobacter cloacae and Enterococcus. Blood cultures has no growth. Urine culture is Aerococcus viridans. Enterobacter is null sensitive and Enterococcus is ampicillin sensitive. ASSESSMENT AND PLAN: An 82-year-old female who has seen earlier this morning with history of diabetes and dyslipidemia, hypertension, carotid disease, pulmonary hypertension, renal disease, presenting with bilateral lower extremity cellulitis, greatly improved, a gram-positive cocci in the urine. Acute congestive heart failure with preserved ejection fraction on top of chronic congestive hear failure and the legs as of this morning were really much better. We will follow closely with you. Chago Hilliard MD
--- NOTE | 2017-04-18 05:28 | DS ---
HISTORY OF PRESENT ILLNESS: The patient is an 82-year-old seen and examined, doing well. Still complain of bilateral leg pain and swelling. Breathing is much better. Eating and tolerating. She came in initially with shortness of breath and was found to be in atrial fibrillation. PHYSICAL EXAMINATION: VITAL SIGNS: She is afebrile. Pulse 74, respirations 18, blood pressure 114/68. LUNGS: Bilateral fair airflow. Few soft crackles at bases. HEART: S1 and S1 audible. ABDOMEN: Soft, nontender. No rebound, no guarding. NEUROLOGICAL: She is awake, alert, oriented, able to communicate. EXTREMITIES: Bilateral legs, she has erythema with scaly skin. LABORATORY DATA: Sodium 137, potassium 5.0, chloride 104, CO2 of 23, BUN 41, creatinine 2.6, blood sugar of 148. Leg wound culture positive for Enterobacter cloacae and Enterococcus faecalis. ASSESSMENT: 1. New onset of atrial fibrillation. 2. Congestive heart failure. 3. Hypertension. 4. Morbid obesity. 5. Bilateral leg cellulitis. 6. Deconditioning and difficulty walking. 7. Bilateral leg edema. 8. Chronic kidney disease. 9. Insulin-dependent diabetes. PLAN: Currently the patient is on Rocephin. She is getting diuretics. She is on Eliquis. She is on aspirin. Continue her on nebulizer treatment as needed and monitor her blood sugar. She will be transferred to TCU today to complete her course of antibiotic and full physical therapy. Jean Pierre Giles MD
== END 2017-04-17 17:46 | disposition home or self-care (01) | DRG 292 ==
LOC: ED 12:26 → ERH 15:59 → 3RSO 17:49
PROVIDERS: ADMIT Internal Medicine Nephrology; ATTEND Internal Medicine Nephrology
DX: I13.0 Hypertensive heart and chronic kidney disease with heart failure and stage 1 through stage 4 chronic kidney disease, or unspecified chronic kidney disease (principal); I50.32 Chronic diastolic (congestive) heart failure; I27.20 Pulmonary hypertension, unspecified; E11.22 Type 2 diabetes mellitus with diabetic chronic kidney disease; L03.115 Cellulitis of right lower limb; I07.1 Rheumatic tricuspid insufficiency; L03.116 Cellulitis of left lower limb; N39.0 Urinary tract infection, site not specified; I48.91 Unspecified atrial fibrillation; N18.9 Chronic kidney disease, unspecified; E78.5 Hyperlipidemia, unspecified; B95.2 Enterococcus as the cause of diseases classified elsewhere; R26.2 Difficulty in walking, not elsewhere classified; Z87.891 Personal history of nicotine dependence; Z79.84 Long term (current) use of oral hypoglycemic drugs

== ENCOUNTER 2017-04-17 17:46 | Inpatient (IN) | payer OTHER, BC ==
[2017-04-17 18:46] VITALS: BMI 30.2
[2017-04-17] MEDS ORDERED: Albuterol-Ipratrop 3 mg / 0.5 (3 ml) UD IH PRN (19:07)
[2017-04-17] MEDS: Insulin Reg-LOW-Coverage SC SCH (21:25)
[2017-04-17] MEDS: Oxycodone/Acetaminophen 5/325 mg Tab PO PRN (21:53)
[2017-04-18] MEDS: cefTRIAXone 1 gm 1 GM/100 ML BAG IVPB SCH (05:17)
[2017-04-18] MEDS: Insulin Reg-LOW-Coverage SC SCH ×4 (06:36→22:32)
--- NOTE | 2017-04-18 07:37 | CP.PCM.PN ---
Subjective - Date & Time of Evaluation Date of Evaluation: 04/18/17 Time of Evaluation: 07:00 - Subjective Subjective: Stable in TCU now. She feels better. Legs better. No CP or SOB. V/S noted PE: Lungs: clear Cor: Irreg., S1S2 Abd.: soft Ext. Cellulitic, improved. No edema now Neuro.: alert Labs pending. Objective - Vital Signs/Intake and Output Vital Signs (last 24 hours): Temp Pulse Resp BP Pulse Ox 98.8 F 86 20 136/71 95 04/18/17 06:43 04/18/17 06:43 04/18/17 06:43 04/18/17 06:43 04/18/17 06:43 - Medications Medications: Current Medications Acarbose (Precose 50 Mg Tab) 100 mg PO 0800 [facility] Albuterol/Ipratropium (Duoneb 3 Mg/0.5 Mg (3 Ml) Ud) 3 ml IH [id number] PRN; Protocol PRN Reason: Shortness of Breath Apixaban (Eliquis) 2.5 mg PO BID [facility] PRN Reason: Protocol Aspirin (Aspirin Chewable) 81 mg PO 0800 [facility] PRN Reason: Protocol Atorvastatin Calcium (Lipitor) 20 mg PO HS [facility] PRN Reason: Protocol Last Admin: 04/17/17 21:22 Dose: 20 mg Betamethasone/Clotrimazole (Lotrisone) 0 gm TOP BID [facility] PRN Reason: Protocol Glipizide (Glucotrol) 10 mg PO 0730,1700 [facility] PRN Reason: Protocol Ceftriaxone Sodium (Rocephin 1 Gram Ivpb) 1 gm in 100 mls @ 100 mls/hr IVPB 0600 [facility] PRN Reason: Protocol Stop: 04/25/17 06:59 Last Admin: 04/18/17 05:17 Dose: 100 mls/hr Insulin Human Regular (Humulin R Low) 0 units SC ACHS [facility] PRN Reason: Protocol Last Admin: 04/18/17 06:36 Dose: Not Given Oxycodone/Acetaminophen (Percocet 5/325 Mg Tab) 1 tab PO Q4H PRN; Protocol PRN Reason: Pain, moderate (4-7) Stop: 04/20/17 19:08 Last Admin: 04/17/17 21:53 Dose: 1 tab Assessment and Plan - Assessment and Plan (Free Text) Assessment: Edema/Cellulitis UTI AF CHF/DD Echo: NL LV, Mild , Mild MS, Moderate MR, Moderate TR, Moderate/Severe PH Pleural effusion CKD Diabetes HBP Former Smoker GB Surgery Plan: AB as per ID Check AM labs. OOB/PT/Rehab Efforts
[2017-04-18 08:45] LABS: INR 1.16 (0.93-1.08); PROTHROMBIN TIME 12.8 SECONDS (9.4-12.5)
[2017-04-18 08:50] LABS: CALCIUM 9.9 mg/dL (8.4-10.5)
[2017-04-18] MEDS ORDERED: cefTRIAXone 2 GM IN NS 2 GM/100 ML BAG IVPB SCH (10:00)
[2017-04-18] MEDS: Clotrimazole/Betamethasone Cream(15 gm) TOP SCH ×2 (10:58→17:09)
[2017-04-18] MEDS: Oxycodone/Acetaminophen 5/325 mg Tab PO PRN (13:42)
[2017-04-18] MEDS ORDERED: Sod Polystyrene Sulf 15 gm/60 ml Susp PO ONE (15:14)
--- NOTE | 2017-04-18 18:55 | CON ---
DATE: 04/18/2017 The patient is seen in room 318 CHIEF COMPLAINT: Weakness since several days. HISTORY OF PRESENT ILLNESS: This is an 82-year-old female with diabetes, dyslipidemia, hypertension, carotid disease, pulmonary hypertension, renal disease, history of laparoscopic cholecystectomy, history of no known allergies, was admitted to the acute care with a diagnosis of cellulitis, was given antibiotics, now transferred here to transitional care. REVIEW OF SYSTEMS: Reveals no fevers, no chills. No nausea, no vomiting, no chest pain. PAST MEDICAL HISTORY: Significant for diabetes mellitus, dyslipidemia, hypertension, carotid disease, pulmonary hypertension, renal disease. PAST SURGICAL HISTORY: Significant for laparoscopic cholecystectomy. ALLERGIES: THE PATIENT HAS NO KNOWN ALLERGIES. MEDICATIONS: Reviewed. PHYSICAL EXAMINATION: VITAL SIGNS: The patient's temperature is 98, blood pressure is 140/70, respiratory rate of 20, heart rate of 86. HEENT: Examination of HEENT is unremarkable. NECK: Supple. LUNGS: Have decreased breath sounds. HEART: Normal S1, S2. ABDOMEN: Soft, nontender. EXTREMITIES: Examination of the legs are much improved, there is less erythema and edema. LABORATORY EXAMINATION: Reviewed and chemistries are noted, creatinine of 2.5. ASSESSMENT AND PLAN: An 82-year-old female with diabetes, dyslipidemia, hypertension, carotid disease, pulmonary hypertension, renal disease with bilateral lower extremity cellulitis and with acute diastolic congestive heart failure on chronic congestive heart failure and enterobacter and enterococcus urinary tract infection. Currently on ceftriaxone. The legs are improving, and we will follow closely with you. Chago Hilliard MD
--- NOTE | 2017-04-19 00:30 | HP ---
HISTORY OF PRESENT ILLNESS: The patient is an 82-year-old who was initially admitted with the bilateral leg swelling, cough, congestion, shortness of breath and was found to be in congestive heart failure and bilateral leg edema. Denies any fever or chills. No nausea or vomiting. PAST MEDICAL HISTORY: She has significant past medical history of: 1. Hypertension. 2. New onset AFib. 3. Morbid obesity. 4. Peg-nkhbxlp-sxgsufsos diabetes. 5. Hyperlipidemia. PAST SURGICAL HISTORY: Significant for: 1. Ventral hernia repair. 2. Status post cholecystectomy. SOCIAL HISTORY: She lives with her daughter. Denies smoking or drinking. She used to smoke before, but quit 40 years ago. MEDICATION: As per MAR. PHYSICAL EXAMINATION: GENERAL: The patient is awake, alert, oriented, and communicative. VITAL SIGNS: She is afebrile, pulse 86, respirations 18, and blood pressure 147/77. LUNGS: Bilateral fair airflow. No rhonchi or crackles. HEART: S1 and S2 audible. ABDOMEN: Soft, obese, and nontender. No rebound. No guarding. NEUROLOGICAL: She is awake, alert, oriented, and able to communicate. Bilateral legs, she has redness and erythema with scaly skin. LABORATORY DATA: PT 12.8 and INR 1.16. Chemistry; sodium 139, potassium 5.3, chloride 106, CO2 of 24, BUN 38, creatinine 2.5, and blood sugar of 161. ASSESSMENT: 1. chronic renal insufficiency. 2. New onset of atrial fibrillation. 3. Hypertension. 4. Hyperlipidemia. 5. Bilateral edema. 6. Dkl-etbexfg-tyvxlpvtr diabetes. PLAN: We will continue the patient on aspirin, nebulizer treatment. She is on Eliquis, gliclazide and I will give her one dose Kayexalate. We will continue on statin. Analgesics as needed. We will follow up this patient in a.m. Jean Pierre Giles MD
[2017-04-19] MEDS: cefTRIAXone 1 gm 1 GM/100 ML BAG IVPB SCH (05:44)
[2017-04-19] MEDS: Insulin Reg-LOW-Coverage SC SCH ×4 (06:47→22:09)
[2017-04-19 07:19] LABS: INR 1.25 (0.93-1.08); PROTHROMBIN TIME 13.8 SECONDS (9.4-12.5)
[2017-04-19 07:42] LABS: CALCIUM 10.1 mg/dL (8.4-10.5)
--- NOTE | 2017-04-19 07:48 | CP.PCM.PN ---
Subjective - Date & Time of Evaluation Date of Evaluation: 04/19/17 Time of Evaluation: 07:00 - Subjective Subjective: Stable in TCU now. She feels better. Legs better. No CP or SOB. Daughter at bedside. Kayexalate given yesterday for K+=5.3. V/S noted. P = 65 -90 PE: Lungs: clear Cor: Irreg., S1S2 Abd.: soft Ext. Cellulitic, improved. Mild edema. Legs wrapped. Neuro.: alert Labs 04/18 noted: Cr.= 2.5, K+= 5.3 Today : INR 1.25, BMP pending. Objective - Vital Signs/Intake and Output Vital Signs (last 24 hours): Temp Pulse Resp BP Pulse Ox 98.2 F 65 20 147/74 96 04/19/17 06:00 04/19/17 06:00 04/19/17 06:00 04/19/17 06:00 04/19/17 06:00 - Medications Medications: Current Medications Acarbose (Precose 50 Mg Tab) 100 mg PO 0800 [facility] Last Admin: 04/18/17 08:12 Dose: 100 mg Albuterol/Ipratropium (Duoneb 3 Mg/0.5 Mg (3 Ml) Ud) 3 ml IH [id number] PRN; Protocol PRN Reason: Shortness of Breath Apixaban (Eliquis) 2.5 mg PO BID [facility] PRN Reason: Protocol Last Admin: 04/18/17 17:09 Dose: 2.5 mg Aspirin (Aspirin Chewable) 81 mg PO 0800 [facility] PRN Reason: Protocol Last Admin: 04/18/17 08:11 Dose: 81 mg Atorvastatin Calcium (Lipitor) 20 mg PO HS [facility] PRN Reason: Protocol Last Admin: 04/18/17 22:33 Dose: 20 mg Betamethasone/Clotrimazole (Lotrisone) 0 gm TOP BID [facility] PRN Reason: Protocol Last Admin: 04/18/17 17:09 Dose: 1 applic Glipizide (Glucotrol) 10 mg PO 0730,1700 [facility] PRN Reason: Protocol Last Admin: 04/18/17 17:09 Dose: 10 mg Ceftriaxone Sodium (Rocephin 1 Gram Ivpb) 1 gm in 100 mls @ 100 mls/hr IVPB 0600 [facility] PRN Reason: Protocol Stop: 04/25/17 06:59 Last Admin: 04/19/17 05:44 Dose: 100 mls/hr Insulin Human Regular (Humulin R Low) 0 units SC ACHS [facility] PRN Reason: Protocol Last Admin: 04/19/17 06:47 Dose: 1 units Oxycodone/Acetaminophen (Percocet 5/325 Mg Tab) 1 tab PO Q4H PRN; Protocol PRN Reason: Pain, moderate (4-7) Stop: 04/20/17 19:08 Last Admin: 04/18/17 13:42 Dose: 1 tab - Labs Labs: 04/18/17 08:30 PT 13.8 SECONDS (9.4-12.5) H 04/19/17 06:30 INR 1.25 (0.93-1.08) H 04/19/17 06:30 Assessment and Plan - Assessment and Plan (Free Text) Assessment: Edema/Cellulitis UTI AF CHF/DD Echo: NL LV, Mild , Mild MS, Moderate MR, Moderate TR, Moderate/Severe PH Pleural effusion CKD Diabetes HBP Former Smoker GB Surgery Plan: AB as per ID and Dr. Giles. Continue low dose Elquis. Check AM labs. OOB/PT/Rehab Efforts
[2017-04-19] MEDS: Clotrimazole/Betamethasone Cream(15 gm) TOP SCH ×2 (09:46→17:55)
[2017-04-19] MEDS: Oxycodone/Acetaminophen 5/325 mg Tab PO PRN (13:37)
--- NOTE | 2017-04-19 16:22 | PN ---
DATE: 04/19/2017 SUBJECTIVE: The patient is in bed, in no acute distress, nontoxic. No fevers. PHYSICAL EXAMINATION: VITAL SIGNS: Temperature is 98, blood pressure is 140/70, respiratory rate of 16. HEENT: Unremarkable. NECK: Supple. LUNGS: Have decreased breath sounds. HEART: Normal S1, S2. ABDOMEN: Soft, nontender. Laboratory examination reveals a BUN of 37, creatinine of 2.4. ASSESSMENT AND PLAN: An 82-year-old female with diabetes, dyslipidemia, hypertension, carotid disease, pulmonary hypertension, renal disease with bilateral lower extremity cellulitis, acute diastolic congestive heart failure on chronic congestive heart failure with enterobacter/enterococcus urinary tract infection. The legs have much improved. Currently on ceftriaxone. Case discussed with patient's daughter who is at the bedside, encouraging the patient to do more physical therapy. Chago Hilliard MD
--- NOTE | 2017-04-19 20:37 | PN ---
DATE: 04/19/2017 SUBJECTIVE: The patient is an 82-year-old, seen and examined, lying in bed, seems to be comfortable. No nausea, no vomiting, no diarrhea. Eating and tolerating. No fever. No chills. Still has bilateral leg pain. PHYSICAL EXAMINATION VITAL SIGNS: The patient is afebrile. Pulse 92, respirations 19, blood pressure 142/78. LUNGS: Bilateral fair airflow. No rhonchi or crackles. HEART: S1, S2 audible. No murmur. ABDOMEN: Soft, obese, nontender. No rebound. No guarding. NEUROLOGIC: She is awake, alert, and oriented, able to communicate. EXTREMITIES: Bilateral legs +1 edema and some redness. LABORATORY DATA: PT is 13.8, INR 1.25. Chemistry: Sodium 141, potassium 5.4, chloride 104, CO2 is 27, BUN 37, creatinine 2.4, and blood sugar of 174. ASSESSMENT: 1. Bilateral leg cellulitis. 2. Enterobacter cloacae and Enterococcus faecalis and wound infection. 3. New onset atrial fibrillation. 4. Hyperlipidemia. 5. Hypertension. 6. Congestive heart failure. 7. Noninsulin-dependent diabetes. 8. Renal insufficiency. PLAN: Medication reviewed. We will continue that. Continue diuretics. I will give her a dose of Lasix today. Monitor her electrolyte intermittently. We will follow up this patient in a.m. Jean Pierre Giles MD MTDD
[2017-04-20] MEDS: cefTRIAXone 1 gm 1 GM/100 ML BAG IVPB SCH (05:21)
[2017-04-20] MEDS: Insulin Reg-LOW-Coverage SC SCH ×4 (06:37→21:52)
--- NOTE | 2017-04-20 07:21 | CP.PCM.PN ---
Subjective - Date & Time of Evaluation Date of Evaluation: 04/20/17 Time of Evaluation: 07:00 - Subjective Subjective: Stable in TCU now. She feels better. Legs better but still weeping. No CP or SOB. V/S noted. P = 65 -90 PE: Lungs: clear Cor: Irreg., S1S2 Abd.: soft Ext. Cellulitic, improved. Mild edema and weeping Neuro.: alert Labs 04/19 noted: Cr.= 2.4, K+= 5.4 Objective - Vital Signs/Intake and Output Vital Signs (last 24 hours): Temp Pulse Resp BP Pulse Ox 98.1 F 97 H 20 113/70 98 04/20/17 06:00 04/20/17 06:00 04/20/17 06:00 04/20/17 06:00 04/20/17 06:00 - Medications Medications: Current Medications Acarbose (Precose 50 Mg Tab) 100 mg PO 0800 [facility] Last Admin: 04/19/17 08:23 Dose: 100 mg Albuterol/Ipratropium (Duoneb 3 Mg/0.5 Mg (3 Ml) Ud) 3 ml IH [id number] PRN; Protocol PRN Reason: Shortness of Breath Apixaban (Eliquis) 2.5 mg PO BID [facility] PRN Reason: Protocol Last Admin: 04/19/17 17:54 Dose: 2.5 mg Aspirin (Aspirin Chewable) 81 mg PO 0800 [facility] PRN Reason: Protocol Last Admin: 04/19/17 08:23 Dose: 81 mg Atorvastatin Calcium (Lipitor) 20 mg PO HS [facility] PRN Reason: Protocol Last Admin: 04/19/17 21:16 Dose: 20 mg Betamethasone/Clotrimazole (Lotrisone) 0 gm TOP BID [facility] PRN Reason: Protocol Last Admin: 04/19/17 17:55 Dose: 1 applic Furosemide (Lasix) 40 mg IVP DAILY [facility] Last Admin: 04/19/17 17:52 Dose: 40 mg Glipizide (Glucotrol) 10 mg PO 0730,1700 [facility] PRN Reason: Protocol Last Admin: 04/19/17 17:53 Dose: 10 mg Ceftriaxone Sodium (Rocephin 1 Gram Ivpb) 1 gm in 100 mls @ 100 mls/hr IVPB 0600 [facility] PRN Reason: Protocol Stop: 04/25/17 06:59 Last Admin: 04/20/17 05:21 Dose: 100 mls/hr Insulin Human Regular (Humulin R Low) 0 units SC ACHS [facility] PRN Reason: Protocol Last Admin: 04/20/17 06:37 Dose: 1 units Oxycodone/Acetaminophen (Percocet 5/325 Mg Tab) 1 tab PO Q4H PRN; Protocol PRN Reason: Pain, moderate (4-7) Stop: 04/20/17 19:08 Last Admin: 04/19/17 13:37 Dose: 1 tab Sodium Polystyrene Sulfonate (Kayexalate Susp) 30 gm PO ONCE ONE Stop: 04/20/17 10:01 - Labs Labs: 04/19/17 06:30 PT 13.8 SECONDS (9.4-12.5) H 04/19/17 06:30 INR 1.25 (0.93-1.08) H 04/19/17 06:30 Assessment and Plan - Assessment and Plan (Free Text) Assessment: Edema/Cellulitis UTI Hyperkalemia AF CHF/DD Echo: NL LV, Mild , Mild MS, Moderate MR, Moderate TR, Moderate/Severe PH Pleural effusion CKD Diabetes HBP Former Smoker GB Surgery Plan: AB as per ID and Dr. Giles. Kayexalate today. IV Lasix Continue low dose Elquis. Check AM labs. OOB/PT/Rehab Efforts
[2017-04-20] MEDS ORDERED: Sod Polystyrene Sulf 15 gm/60 ml Susp PO ONE (10:00)
[2017-04-20] MEDS: Clotrimazole/Betamethasone Cream(15 gm) TOP SCH ×2 (10:06→17:10)
--- NOTE | 2017-04-20 11:44 | PN ---
DATE: 04/20/2017 SUBJECTIVE: The patient is in bed, room 318. The patient was seen earlier this morning. No fevers or chills. She is doing much better. PHYSICAL EXAMINATION: VITAL SIGNS: Temperature is 98, blood pressure 113/70, respiratory rate of 16. HEENT: Unremarkable. NECK: Supple. LUNGS: Have decreased breath sounds. HEART: Normal S1 and S2. ABDOMEN: Soft. LABORATORY DATA: Chemistry reveals a BUN of 37 and creatinine of 2.4. Microbiology is noted. ASSESSMENT AND PLAN: This is an 82-year-old female with diabetes mellitus, dyslipidemia, hypertension, carotid disease, pulmonary hypertension, renal disease with bilateral lower extremities cellulitis, acute diastolic congestive heart failure on chronic congestive failure and Enterobacter and enterococcus urinary tract infection. The legs have currently much improved as of this morning. Currently, on ceftriaxone. May be, we will switch to p.o. antibiotics upon discharge. May be able to use p.o. Vantin at 100 mg p.o. b.i.d. x5 to 7 days. Chago Hilliard MD
[2017-04-20] MEDS ORDERED: Magnesium Citrate Oral SOL (300 ml) PO ONE (14:00)
--- NOTE | 2017-04-20 20:36 | PN ---
DATE: 04/20/2017 SUBJECTIVE: The patient is an 82-year-old seen and examined. Lying in bed, seems to be comfortable. PHYSICAL EXAMINATION: VITAL SIGNS: She is afebrile. Pulse 64, respirations 16 and blood pressure 134/75. LUNGS: Bilateral fair airflow. No rhonchi or crackles. HEART: S1 and S2 audible. ABDOMEN: Soft and nontender. No rebound. No guarding. NEUROLOGIC: The patient is awake, alert, and oriented. Able to communicate. EXTREMITIES: Bilateral leg cellulitis with lot of scaly tissue with erythema. SKIN. Left chin has some serous discharge. LABORATORY DATA: Blood sugar is 176. ASSESSMENT: 1. New onset of atrial fibrillation. 2. Bilateral leg cellulitis. 3. History of hypertension. 4. Hyperlipidemia. 5. Constipation. 6. Non-insulin dependant diabetes. 7. Renal insufficiency. PLAN: We will continue the patient on Rocephin. We will get podiatry consult to take care of her bilateral scaly dermatitis and erythema and cellulitis. We will continue her on Eliquis. I will follow up CBC and CMP in the morning and ambulation. Jean Pierre Giles MD MTDD
[2017-04-21] MEDS: cefTRIAXone 1 gm 1 GM/100 ML BAG IVPB SCH (05:17)
[2017-04-21] MEDS: Insulin Reg-LOW-Coverage SC SCH ×4 (06:35→21:43)
--- NOTE | 2017-04-21 07:48 | CP.PCM.PN ---
Subjective - Date & Time of Evaluation Date of Evaluation: 04/21/17 Time of Evaluation: 07:00 - Subjective Subjective: Stable in TCU now. She feels better. Legs better but still weeping. No CP or SOB. V/S noted. P = 65 -90 PE: Lungs: clear Cor: Irreg., S1S2 Abd.: soft Ext. Cellulitic, improved. Mild edema and weeping Neuro.: alert Labs 04/19 noted: Cr.= 2.1, K+= 5.1 Objective - Vital Signs/Intake and Output Vital Signs (last 24 hours): Temp Pulse Resp BP Pulse Ox 98.1 F 64 16 134/75 96 04/20/17 11:45 04/20/17 11:45 04/20/17 11:45 04/20/17 11:45 04/20/17 11:45 - Medications Medications: Current Medications Acarbose (Precose 50 Mg Tab) 100 mg PO 0800 [facility] Last Admin: 04/20/17 08:23 Dose: 100 mg Albuterol/Ipratropium (Duoneb 3 Mg/0.5 Mg (3 Ml) Ud) 3 ml IH [id number] PRN; Protocol PRN Reason: Shortness of Breath Apixaban (Eliquis) 2.5 mg PO BID [facility] PRN Reason: Protocol Last Admin: 04/20/17 17:12 Dose: 2.5 mg Aspirin (Aspirin Chewable) 81 mg PO 0800 [facility] PRN Reason: Protocol Last Admin: 04/20/17 08:23 Dose: 81 mg Atorvastatin Calcium (Lipitor) 20 mg PO HS [facility] PRN Reason: Protocol Last Admin: 04/20/17 21:52 Dose: 20 mg Betamethasone/Clotrimazole (Lotrisone) 0 gm TOP BID [facility] PRN Reason: Protocol Last Admin: 04/20/17 17:10 Dose: 1 applic Furosemide (Lasix) 40 mg IVP DAILY [facility] Last Admin: 04/20/17 10:10 Dose: 40 mg Glipizide (Glucotrol) 10 mg PO 0730,1700 [facility] PRN Reason: Protocol Last Admin: 04/20/17 17:12 Dose: 10 mg Ceftriaxone Sodium (Rocephin 1 Gram Ivpb) 1 gm in 100 mls @ 100 mls/hr IVPB 0600 [facility] PRN Reason: Protocol Stop: 04/25/17 06:59 Last Admin: 04/21/17 05:17 Dose: 100 mls/hr Insulin Human Regular (Humulin R Low) 0 units SC ACHS [facility] PRN Reason: Protocol Last Admin: 04/21/17 06:35 Dose: Not Given - Labs Labs: 04/21/17 05:40 PT 13.8 SECONDS (9.4-12.5) H 04/19/17 06:30 INR 1.25 (0.93-1.08) H 04/19/17 06:30 Assessment and Plan - Assessment and Plan (Free Text) Assessment: Edema/Cellulitis UTI Hyperkalemia AF CHF/DD Echo: NL LV, Mild , Mild MS, Moderate MR, Moderate TR, Moderate/Severe PH Pleural effusion CKD Diabetes HBP Former Smoker GB Surgery Plan: AB as per ID and Dr. Giles. Podiatry Eval. IV Lasix Continue low dose Elquis. Check AM labs. OOB/PT/Rehab Efforts
[2017-04-21] MEDS: Clotrimazole/Betamethasone Cream(15 gm) TOP SCH ×2 (10:10→18:10)
--- NOTE | 2017-04-21 12:59 | PN ---
DATE: 04/21/2017 SUBJECTIVE: The patient is in bed, no acute distress, and nontoxic. PHYSICAL EXAMINATION: VITAL SIGNS: Temperature is 98, blood pressure is 130/70, and respiratory rate of 18. HEENT: Unremarkable. NECK: Supple. LUNGS: Decreased breath sounds. HEART: Normal S1 and S2. ABDOMEN: Soft and nontender. LABORATORY DATA: Laboratory examination is noted. Review of orders reveal the patient's medications include to be ceftriaxone and laboratory examination is reviewed. ASSESSMENT AND PLAN: An 82-year-old female seen early this morning in room 318 with diabetes mellitus, dyslipidemia, hypertension, carotid disease, pulmonary hypertension, renal disease, bilateral lower extremity cellulitis with acute diastolic congestive heart failure and chronic congestive heart failure, Enterobacter and Enterococcus urinary tract infections, and her legs are greatly improved. Currently on ceftriaxone, may be able to switch to p.o. Vantin 100 mg b.i.d. times 5 days upon discharge. Chago Hilliard MD
[2017-04-21] MEDS: Oxycodone/Acetaminophen 5/325 mg Tab PO PRN (16:03)
--- NOTE | 2017-04-21 18:33 | CP.PCM.CON ---
<Brian Chaparro - Last Filed: 04/21/17 18:38> History of Present Illness - History of Present Illness History of Present Illness: Podiatry Consult Note- Dr. Jones 82 y.o female seen and evaluated in [facility] for weeping bilaterally leg ulcerations. Patient reports that her legs has been weeping and swollen for over a week. She reports pain to the bilaterally lower extremity, worse with palpation. She States that her legs were swollen and has gotten down a lot since admission. Patient denies n/v/sob/cp/chills or f. No other pedal complaints at this time. Past Patient History - Infectious Disease Hx of Infectious Diseases: None - Tetanus Immunizations Tetanus Immunization: Unknown - Past Social History Smoking Status: Former Smoker - CARDIAC Hx Cardiac Disorders: Yes Hx Hypercholesterolemia: Yes Hx Hypertension: Yes - PULMONARY Hx Respiratory Disorders: Yes (USED TO SMOKE CIGARETTES) - NEUROLOGICAL Hx Neurological Disorder: Yes (PHERIPHERAL NEUROPATHY) - HEENT Hx HEENT Problems: Yes Hx Cataracts: Yes (bilateral sx 2012) - RENAL Hx Chronic Kidney Disease: No - ENDOCRINE/METABOLIC Hx Endocrine Disorders: Yes Hx Diabetes Mellitus Type 2: Yes - HEMATOLOGICAL/ONCOLOGICAL Hx Blood Disorders: No - INTEGUMENTARY Hx Dermatological Problems: Yes Other/Comment: 04-14-17 BILATERAL LE CELLULITIS. - MUSCULOSKELETAL/RHEUMATOLOGICAL Hx Falls: Yes - GASTROINTESTINAL Hx Gastrointestinal Disorders: Yes - GENITOURINARY/GYNECOLOGICAL Hx Genitourinary Disorders: No Hx Reproductive Disorders: No - PSYCHIATRIC Hx Depression: No Hx Emotional Abuse: No Hx Physical Abuse: No Hx Substance Use: No - SURGICAL HISTORY Hx Surgeries: Yes (CARPAL TUNNEL) Hx Cholecystectomy: Yes ([address] hewitt) - ANESTHESIA Hx Anesthesia Reactions: No Hx Malignant Hyperthermia: No Meds Allergies/Adverse Reactions: Allergies Allergy/AdvReac Type Severity Reaction Status Date / Time No Known Allergies Allergy Verified 04/24/17 20:43 - Medications Medications: Current Medications Acarbose (Precose 50 Mg Tab) 100 mg PO 0800 [facility] Last Admin: 04/21/17 08:41 Dose: 100 mg Albuterol/Ipratropium (Duoneb 3 Mg/0.5 Mg (3 Ml) Ud) 3 ml IH [id number] PRN; Protocol PRN Reason: Shortness of Breath Apixaban (Eliquis) 2.5 mg PO BID [facility] PRN Reason: Protocol Last Admin: 04/21/17 18:07 Dose: 2.5 mg Aspirin (Aspirin Chewable) 81 mg PO 0800 [facility] PRN Reason: Protocol Last Admin: 04/21/17 08:41 Dose: 81 mg Atorvastatin Calcium (Lipitor) 20 mg PO HS [facility] PRN Reason: Protocol Last Admin: 04/20/17 21:52 Dose: 20 mg Betamethasone/Clotrimazole (Lotrisone) 0 gm TOP BID [facility] PRN Reason: Protocol Last Admin: 04/21/17 18:10 Dose: 1 applic Furosemide (Lasix) 40 mg IVP DAILY [facility] Last Admin: 04/21/17 10:08 Dose: 40 mg Glipizide (Glucotrol) 10 mg PO 0730,1700 [facility] PRN Reason: Protocol Last Admin: 04/21/17 18:00 Dose: 10 mg Ceftriaxone Sodium (Rocephin 1 Gram Ivpb) 1 gm in 100 mls @ 100 mls/hr IVPB 0600 [facility] PRN Reason: Protocol Stop: 04/25/17 06:59 Last Admin: 04/21/17 05:17 Dose: 100 mls/hr Insulin Human Regular (Humulin R Low) 0 units SC ACHS [facility] PRN Reason: Protocol Last Admin: 04/21/17 18:00 Dose: 2 units Oxycodone/Acetaminophen (Percocet 5/325 Mg Tab) 1 tab PO Q4H PRN PRN Reason: Pain, moderate (4-7) Stop: 04/24/17 15:53 Last Admin: 04/21/17 16:03 Dose: 1 tab Physical Exam - Constitutional Appears: Well, Non-toxic, No Acute Distress - Extremities Exam Additional comments: Vasc: DP and PT nonpalpable secondary to edema, temperature gradient WNL, CFT < 3 seconds x10 digits Ortho: severe pain with palpation to the LE Neuro: gross and protective sensation diminished bilaterally Derm: Multiple ulcerations to the LE with wound base fibro-granular, serous drainage noted. Hyperkeratotic skin lesions noted to the LE secondary to the diminshed swelling. Erythema noted. No purulence, no malodor noted during this visitation, no tunneling, no proble to bone, no undermining noted - Psychiatric Exam Psychiatric exam: Normal Affect, Normal Mood Results - Vital Signs Recent Vital Signs: Last Vital Signs Temp 98.7 F 04/21/17 16:00 Pulse 83 04/21/17 16:00 Resp 18 04/21/17 16:00 BP 149/84 04/21/17 16:00 Pulse Ox 95 04/21/17 16:00 - Labs Result Diagrams: 04/21/17 05:40 Labs: Laboratory Results - last 24 hr 04/20/17 04/21/17 04/21/17 21:16 05:19 05:40 Sodium 140 Potassium 5.1 H Chloride 102 Carbon Dioxide 28 Anion Gap 14 BUN 36 H Creatinine 2.1 H Est GFR ( Amer) 27 Est GFR (Non-Af Amer) 23 POC Glucose (mg/dL) 140 H 142 H Random Glucose 144 H Calcium 10.0 04/21/17 04/21/17 11:37 16:18 Sodium Potassium Chloride Carbon Dioxide Anion Gap BUN Creatinine Est GFR ( Amer) Est GFR (Non-Af Amer) POC Glucose (mg/dL) 212 H 209 H Random Glucose Calcium Assessment & Plan - Assessment and Plan (Free Text) Assessment: 82 y.o female with multiple ulcerations and cellulitis secondary to LE edema Plan: Patient examined and evaluated with attending, Dr. Jones, at bedside Labs, charts, vitals reviewed Discussed plan in detail with attending Dr. Jones Will need to order arterial doppler- will hold off at the moment due to patient' s bilaterally LE pain Nursing to apply maxsorb/abd/rose RLE in AM and dressing taken off in PM Podiatry willl continue to follow while in house Thank you for the consult <Blanche Jones - Last Filed: 04/30/17 14:16> Results - Vital Signs Recent Vital Signs: Last Vital Signs Temp 97.5 F L 04/28/17 17:06 Pulse 86 04/28/17 17:06 Resp 18 04/28/17 17:06 BP 149/85 04/28/17 17:06 Pulse Ox 100 04/28/17 17:06 - Labs Result Diagrams: 04/25/17 07:00 Attending/Attestation - Attestation I have personally seen and examined this patient.: Yes I have fully participated in the care of the patient.: Yes I have reviewed all pertinent clinical information: Yes
--- NOTE | 2017-04-22 00:14 | PN ---
DATE: 04/21/2017 HISTORY OF PRESENT ILLNESS: The patient is an 82-year-old female admitted with bilateral leg swelling. She has a history of hypertension, atrial fibrillation, chronic renal insufficiency, and anemia. Bilateral leg cellulitis. PAST MEDICAL HISTORY: Hypertension, new onset atrial fibrillation, morbid obesity, [id number] diabetes mellitus, and hyperlipidemia. PAST SURGICAL HISTORY: Hernia repair, status post cholecystectomy. SOCIAL HISTORY: Lives with the daughter. PERSONAL HISTORY: No history of smoking. No history of alcohol abuse. Ex-smoker, quit 40 years ago. MEDICATIONS: Reviewed. PHYSICAL EXAMINATION: GENERAL: Awake, alert, oriented, and communicative. VITAL SIGNS: Temperature is 97.8, heart rate is 86 per minute, respiratory rate is 18 per minute, and blood pressure is 140/70. LUNGS: Bilateral air entry present. HEART: S1 and S2 normal. No murmur. No gallop. ABDOMEN: Soft and nontender. No hepatosplenomegaly. NEUROLOGIC: Awake, alert, oriented, and communicative. Bilateral leg erythema present. SKIN: No petechiae. No rash. LABORATORY DATA: Sodium 139, potassium 5.3, creatinine 2.5, glucose 161, and INR 1.16. ASSESSMENT: Chronic renal insufficiency, bilateral leg cellulitis, new onset atrial fibrillation, hypertension, hyperlipidemia, and bilateral leg edema. PLAN: She is currently on anticoagulation with Eliquis, we will continue that; DuoNeb q.4 hours p.r.n.; Eliquis 2.5 mg p.o. b.i.d.; continue aspirin 81 mg daily; Lipitor 20 mg p.o. at bedtime; IV antibiotic ceftriaxone 1 g daily; Lasix 40 mg daily; sliding scale insulin; and Percocet p.r.n. for pain. Podiatry consultation, Dr. Jones is requested. Dana Seo MD
[2017-04-22] MEDS: Oxycodone/Acetaminophen 5/325 mg Tab PO PRN (05:20)
[2017-04-22] MEDS: cefTRIAXone 1 gm 1 GM/100 ML BAG IVPB SCH (05:31)
[2017-04-22] MEDS: Insulin Reg-LOW-Coverage SC SCH ×4 (06:33→21:36)
[2017-04-22 07:53] LABS: CALCIUM 9.7 mg/dL (8.4-10.5)
--- NOTE | 2017-04-22 07:56 | CP.PCM.PN ---
Subjective - Date & Time of Evaluation Date of Evaluation: 04/22/17 Time of Evaluation: 07:00 - Subjective Subjective: Stable in TCU. She feels better. Legs better. No weeping seen this AM. No CP or SOB. Was OOB yesterday. V/S noted. P = 80 - 90's PE: Lungs: clear Cor: Irreg., S1S2 Abd.: soft Ext. Cellulitic, improved. Neuro.: alert Labs pending. Objective - Vital Signs/Intake and Output Vital Signs (last 24 hours): Temp Pulse Resp BP Pulse Ox 98.2 F 88 20 166/76 H 97 04/22/17 06:00 04/22/17 06:00 04/22/17 06:00 04/22/17 06:00 04/22/17 06:00 - Medications Medications: Current Medications Acarbose (Precose 50 Mg Tab) 100 mg PO 0800 [facility] Last Admin: 04/21/17 08:41 Dose: 100 mg Albuterol/Ipratropium (Duoneb 3 Mg/0.5 Mg (3 Ml) Ud) 3 ml IH [id number] PRN; Protocol PRN Reason: Shortness of Breath Apixaban (Eliquis) 2.5 mg PO BID [facility] PRN Reason: Protocol Last Admin: 04/21/17 18:07 Dose: 2.5 mg Aspirin (Aspirin Chewable) 81 mg PO 0800 [facility] PRN Reason: Protocol Last Admin: 04/21/17 08:41 Dose: 81 mg Atorvastatin Calcium (Lipitor) 20 mg PO HS [facility] PRN Reason: Protocol Last Admin: 04/21/17 21:44 Dose: 20 mg Betamethasone/Clotrimazole (Lotrisone) 0 gm TOP BID [facility] PRN Reason: Protocol Last Admin: 04/21/17 18:10 Dose: 1 applic Furosemide (Lasix) 40 mg IVP DAILY [facility] Last Admin: 04/21/17 10:08 Dose: 40 mg Glipizide (Glucotrol) 10 mg PO 0730,1700 [facility] PRN Reason: Protocol Last Admin: 04/21/17 18:00 Dose: 10 mg Ceftriaxone Sodium (Rocephin 1 Gram Ivpb) 1 gm in 100 mls @ 100 mls/hr IVPB 0600 [facility] PRN Reason: Protocol Stop: 04/25/17 06:59 Last Admin: 04/22/17 05:31 Dose: 100 mls/hr Insulin Human Regular (Humulin R Low) 0 units SC ACHS [facility] PRN Reason: Protocol Last Admin: 04/22/17 06:33 Dose: Not Given Oxycodone/Acetaminophen (Percocet 5/325 Mg Tab) 1 tab PO Q4H PRN PRN Reason: Pain, moderate (4-7) Stop: 04/24/17 15:53 Last Admin: 04/22/17 05:20 Dose: 1 tab - Labs Labs: 04/21/17 05:40 PT 13.8 SECONDS (9.4-12.5) H 04/19/17 06:30 INR 1.25 (0.93-1.08) H 04/19/17 06:30 Assessment and Plan - Assessment and Plan (Free Text) Assessment: Edema/Cellulitis UTI Hyperkalemia AF CHF/DD Echo: NL LV, Mild , Mild MS, Moderate MR, Moderate TR, Moderate/Severe PH Pleural effusion CKD Diabetes HBP Former Smoker GB Surgery Plan: AB as per ID, Podiatry, Dr. Gabbi URBANO Lasix Continue low dose Elquis. Check AM labs-pending OOB/PT/Rehab Efforts
[2017-04-22] MEDS: Clotrimazole/Betamethasone Cream(15 gm) TOP SCH ×2 (10:38→17:38)
--- NOTE | 2017-04-22 18:19 | CP.PCM.PN ---
<Brian Chaparro - Last Filed: 04/22/17 18:16> Subjective - Date & Time of Evaluation Date of Evaluation: 04/22/17 Time of Evaluation: 18:16 - Subjective Subjective: POdiatry Progress Note for Dr. Jones 82 y.o female seen and evaluated in [facility] with attending at bedside for weeping bilaterally leg ulcerations. She reports decrease pain to the bilaterally lower extremity. She is seen resting comfortably in bed, in NAD, and AA0x3. Patient denies acute overnight events. Patient denies n/v/sob/cp/chills or f. No other pedal complaints at this time. Dressing is seen clean and intact with serous strikethrough to dressing. Objective - Vital Signs/Intake and Output Vital Signs (last 24 hours): Temp Pulse Resp BP Pulse Ox 97.6 F 71 18 169/69 H 97 04/22/17 10:00 04/22/17 10:00 04/22/17 10:00 04/22/17 10:38 04/22/17 10:00 - Medications Medications: Current Medications Acarbose (Precose 50 Mg Tab) 100 mg PO 0800 [facility] Last Admin: 04/22/17 08:25 Dose: 100 mg Albuterol/Ipratropium (Duoneb 3 Mg/0.5 Mg (3 Ml) Ud) 3 ml IH [id number] PRN; Protocol PRN Reason: Shortness of Breath Apixaban (Eliquis) 2.5 mg PO BID [facility] PRN Reason: Protocol Last Admin: 04/22/17 17:38 Dose: 2.5 mg Aspirin (Aspirin Chewable) 81 mg PO 0800 [facility] PRN Reason: Protocol Last Admin: 04/22/17 08:25 Dose: 81 mg Atorvastatin Calcium (Lipitor) 20 mg PO HS [facility] PRN Reason: Protocol Last Admin: 04/21/17 21:44 Dose: 20 mg Betamethasone/Clotrimazole (Lotrisone) 0 gm TOP BID [facility] PRN Reason: Protocol Last Admin: 04/22/17 17:38 Dose: 1 applic Furosemide (Lasix) 40 mg IVP DAILY [facility] Last Admin: 04/22/17 10:38 Dose: 40 mg Glipizide (Glucotrol) 10 mg PO 0730,1700 [facility] PRN Reason: Protocol Last Admin: 04/22/17 17:38 Dose: 10 mg Ceftriaxone Sodium (Rocephin 1 Gram Ivpb) 1 gm in 100 mls @ 100 mls/hr IVPB 0600 [facility] PRN Reason: Protocol Stop: 04/25/17 06:59 Last Admin: 04/22/17 05:31 Dose: 100 mls/hr Insulin Human Regular (Humulin R Low) 0 units SC ACHS [facility] PRN Reason: Protocol Last Admin: 04/22/17 17:37 Dose: 1 units Oxycodone/Acetaminophen (Percocet 5/325 Mg Tab) 1 tab PO Q4H PRN PRN Reason: Pain, moderate (4-7) Stop: 04/24/17 15:53 Last Admin: 04/22/17 05:20 Dose: 1 tab - Labs Labs: 04/22/17 06:00 PT 13.8 SECONDS (9.4-12.5) H 04/19/17 06:30 INR 1.25 (0.93-1.08) H 04/19/17 06:30 - Constitutional Appears: Well, Non-toxic, No Acute Distress - Extremities Exam Additional comments: Vasc: DP and PT nonpalpable secondary to edema, temperature gradient WNL, CFT < 3 seconds x10 digits Ortho: moderate pain with palpation to the LE, pain has decreased with palpation Neuro: gross and protective sensation diminished bilaterally Derm: Multiple ulcerations to the LE with wound base fibro-granular, serous drainage noted. Hyperkeratotic skin lesions noted to the LE secondary to the reduced swelling. Erythema noted to entire LE. No purulence, no malodor noted during this visitation, no tunneling, no proble to bone, no undermining noted - Neurological Exam Neurological Exam: Alert, Normal Gait, Oriented x3 - Psychiatric Exam Psychiatric exam: Normal Affect, Normal Mood Assessment and Plan - Assessment and Plan (Free Text) Assessment: 82 y.o female with multiple ulcerations and cellulitis secondary to LE edema Plan: Patient examined and evaluated with attending, Dr. Jones, at bedside Labs, charts, vitals reviewed Discussed plan in detail with attending Dr. Jones Will need to order arterial doppler- will hold off at the moment due to patient' s bilaterally LE pain Nursing to apply maxsorb/abd/rose RLE in AM and dressing taken off in PM Dressing was removed. Dressing will remain off in the PM. Podiatry will change dressing in the AM tomorrow Podiatry willl continue to follow while in house <Blanche Jones - Last Filed: 04/30/17 14:18> Objective - Vital Signs/Intake and Output Vital Signs (last 24 hours): Temp Pulse Resp BP Pulse Ox 97.5 F L 86 18 149/85 100 04/28/17 17:06 04/28/17 17:06 04/28/17 17:06 04/28/17 17:06 04/28/17 17:06 - Labs Labs: 04/25/17 07:00 PT 13.8 SECONDS (9.4-12.5) H 04/19/17 06:30 INR 1.25 (0.93-1.08) H 04/19/17 06:30 Attending/Attestation - Attestation I have personally seen and examined this patient.: Yes I have fully participated in the care of the patient.: Yes I have reviewed all pertinent clinical information, including history, physical exam and plan: Yes
--- NOTE | 2017-04-22 22:00 | PN ---
DATE: 04/22/2017 SUBJECTIVE: The patient is in bed, no acute distress, and nontoxic. PHYSICAL EXAMINATION: VITAL SIGNS: Temperature is 97, blood pressure is 160/60, respiratory rate of 20, and heart rate of 88. HEENT: Unremarkable. NECK: Supple. LUNGS: Decreased breath sounds. HEART: Normal S1 and S2. ABDOMEN: Soft. LABORATORY DATA: Reveals the patient has reviewed, microbiology is noted. Things are much improved. ASSESSMENT AND PLAN: An 82-year-old female, who was seen early this morning with diabetes mellitus, dyslipidemia, hypertension, carotid disease, pulmonary hypertension, renal disease, bilateral lower extremity cellulitis with acute diastolic congestive heart failure and chronic congestive heart failure, Enterobacter and Enterococcus urinary tract infections. The legs are greatly improved. The patient was on ceftriaxone. Review of orders reveals may be able to switch to p.o. Vantin 100 mg p.o. b.i.d. to complete therapy upon discharge. Chago Hilliard MD
[2017-04-23] MEDS: cefTRIAXone 1 gm 1 GM/100 ML BAG IVPB SCH (05:27)
[2017-04-23 06:22] LABS: CALCIUM 9.7 mg/dL (8.4-10.5)
[2017-04-23] MEDS: Insulin Reg-LOW-Coverage SC SCH ×5 (06:55→23:58)
--- NOTE | 2017-04-23 08:07 | CP.PCM.PN ---
Subjective - Date & Time of Evaluation Date of Evaluation: 04/23/17 Time of Evaluation: 07:00 - Subjective Subjective: Stable in TCU. She feels better. Legs better. No CP or SOB. Was OOB yesterday. V/S noted. P = 80 - 90's PE: Lungs: clear Cor: Irreg., S1S2 Abd.: soft Ext. Cellulitic, improved. Neuro.: alert Labs: Cr = 1.9, K+= 4.6 Objective - Vital Signs/Intake and Output Vital Signs (last 24 hours): Temp Pulse Resp BP Pulse Ox 97.6 F 71 18 169/69 H 97 04/22/17 10:00 04/22/17 10:00 04/22/17 10:00 04/22/17 10:38 04/22/17 10:00 - Medications Medications: Current Medications Acarbose (Precose 50 Mg Tab) 100 mg PO 0800 [facility] Last Admin: 04/22/17 08:25 Dose: 100 mg Albuterol/Ipratropium (Duoneb 3 Mg/0.5 Mg (3 Ml) Ud) 3 ml IH [id number] PRN; Protocol PRN Reason: Shortness of Breath Apixaban (Eliquis) 2.5 mg PO BID [facility] PRN Reason: Protocol Last Admin: 04/22/17 17:38 Dose: 2.5 mg Aspirin (Aspirin Chewable) 81 mg PO 0800 [facility] PRN Reason: Protocol Last Admin: 04/22/17 08:25 Dose: 81 mg Atorvastatin Calcium (Lipitor) 20 mg PO HS [facility]ERENA PRN Reason: Protocol Last Admin: 04/22/17 21:36 Dose: 20 mg Betamethasone/Clotrimazole (Lotrisone) 0 gm TOP BID [facility] PRN Reason: Protocol Last Admin: 04/22/17 17:38 Dose: 1 applic Furosemide (Lasix) 40 mg IVP DAILY [facility] Last Admin: 04/22/17 10:38 Dose: 40 mg Glipizide (Glucotrol) 10 mg PO 0730,1700 [facility] PRN Reason: Protocol Last Admin: 04/22/17 17:38 Dose: 10 mg Ceftriaxone Sodium (Rocephin 1 Gram Ivpb) 1 gm in 100 mls @ 100 mls/hr IVPB 0600 [facility] PRN Reason: Protocol Stop: 04/25/17 06:59 Last Admin: 04/23/17 05:27 Dose: 100 mls/hr Insulin Human Regular (Humulin R Low) 0 units SC ACHS [facility] PRN Reason: Protocol Last Admin: 04/23/17 06:55 Dose: Not Given Oxycodone/Acetaminophen (Percocet 5/325 Mg Tab) 1 tab PO Q4H PRN PRN Reason: Pain, moderate (4-7) Stop: 04/24/17 15:53 Last Admin: 04/22/17 05:20 Dose: 1 tab - Labs Labs: 04/23/17 05:30 PT 13.8 SECONDS (9.4-12.5) H 04/19/17 06:30 INR 1.25 (0.93-1.08) H 04/19/17 06:30 Assessment and Plan - Assessment and Plan (Free Text) Assessment: Edema/Cellulitis UTI Hyperkalemia AF CHF/DD Echo: NL LV, Mild , Mild MS, Moderate MR, Moderate TR, Moderate/Severe PH Pleural effusion CKD Diabetes HBP Former Smoker GB Surgery Plan: AB as per ID, Podiatry, Dr. Seo IV Lasix Continue low dose Elquis. Monitor labs. OOB/PT/Rehab Efforts
[2017-04-23] MEDS: Clotrimazole/Betamethasone Cream(15 gm) TOP SCH ×2 (10:52→17:27)
--- NOTE | 2017-04-23 17:50 | CP.PCM.PN ---
<Brian Chaparro - Last Filed: 04/23/17 17:46> Subjective - Date & Time of Evaluation Date of Evaluation: 04/23/17 Time of Evaluation: 15:46 - Subjective Subjective: Podiatry Progress Note- Dr. Jones 82 y.o female seen and evaluated in TCU for weeping bilaterally leg ulcerations. She reports that her leg pain is decreasing. She is seen resting comfortably in bed, in NAD, and AA0x3. Patient denies acute overnight events. Patient denies n/v/sob/cp/chills/d or f. No other pedal complaints at this time. Dressing is seen clean and intact with serous strikethrough to dressing. She reports she has not gone to physical therapy yet. Objective - Vital Signs/Intake and Output Vital Signs (last 24 hours): Temp Pulse Resp BP Pulse Ox 97.6 F 71 18 152/82 H 97 04/22/17 10:00 04/22/17 10:00 04/22/17 10:00 04/23/17 10:51 04/22/17 10:00 - Medications Medications: Current Medications Acarbose (Precose 50 Mg Tab) 100 mg PO 0800 [facility] Last Admin: 04/23/17 08:30 Dose: 100 mg Albuterol/Ipratropium (Duoneb 3 Mg/0.5 Mg (3 Ml) Ud) 3 ml IH [id number] PRN; Protocol PRN Reason: Shortness of Breath Apixaban (Eliquis) 2.5 mg PO BID [facility] PRN Reason: Protocol Last Admin: 04/23/17 17:27 Dose: 2.5 mg Aspirin (Aspirin Chewable) 81 mg PO 0800 [facility] PRN Reason: Protocol Last Admin: 04/23/17 08:32 Dose: 81 mg Atorvastatin Calcium (Lipitor) 20 mg PO HS [facility]ERENA PRN Reason: Protocol Last Admin: 04/22/17 21:36 Dose: 20 mg Betamethasone/Clotrimazole (Lotrisone) 0 gm TOP BID [facility]ERENA PRN Reason: Protocol Last Admin: 04/23/17 17:27 Dose: 1 applic Furosemide (Lasix) 40 mg IVP DAILY [facility]ERE[facility] Last Admin: 04/23/17 10:51 Dose: 40 mg Glipizide (Glucotrol) 10 mg PO 0730,1700 [facility] PRN Reason: Protocol Last Admin: 04/23/17 17:27 Dose: 10 mg Ceftriaxone Sodium (Rocephin 1 Gram Ivpb) 1 gm in 100 mls @ 100 mls/hr IVPB 0600 [facility] PRN Reason: Protocol Stop: 04/25/17 06:59 Last Admin: 04/23/17 05:27 Dose: 100 mls/hr Insulin Human Regular (Humulin R Low) 0 units SC ACHS REPLACED BY [facility] PRN Reason: Protocol Last Admin: 04/23/17 17:26 Dose: Not Given Oxycodone/Acetaminophen (Percocet 5/325 Mg Tab) 1 tab PO Q4H PRN PRN Reason: Pain, moderate (4-7) Stop: 04/24/17 15:53 Last Admin: 04/22/17 05:20 Dose: 1 tab - Labs Labs: 04/23/17 05:30 PT 13.8 SECONDS (9.4-12.5) H 04/19/17 06:30 INR 1.25 (0.93-1.08) H 04/19/17 06:30 - Constitutional Appears: Well, Non-toxic, No Acute Distress - Extremities Exam Additional comments: Vasc: DP and PT nonpalpable secondary to edema, temperature gradient WNL, CFT < 3 seconds x10 digits, edema noted to LE, improving Ortho: moderate pain with palpation to the LE, pain has decreased with palpation Neuro: gross and protective sensation diminished bilaterally Derm: Multiple superficial ulcerations to the LE with wound base fibro-granular , serous drainage noted. Hyperkeratotic skin lesions noted to the LE. Erythema noted to entire LE, improving. No purulence, no malodor, no tunneling, no proble to bone, no undermining noted - Neurological Exam Neurological Exam: Alert, Awake, Oriented x3 - Psychiatric Exam Psychiatric exam: Normal Affect, Normal Mood Assessment and Plan - Assessment and Plan (Free Text) Assessment: 82 y.o female with multiple ulcerations and cellulitis secondary to LE edema, improving Plan: Patient examined and evaluated Labs, charts, vitals reviewed Discussed plan in detail with attending Dr. Jones Dressing changed with maxsorb, dsd, abd, and rose to LE bilaterally. Nursing to apply maxsorb/abd/rose RLE in AM and dressing taken off in PM Will need to order arterial doppler- will hold off at the moment due to patient' s bilaterally LE pain Podiatry willl continue to follow while in hous <Blanche Jones - Last Filed: 04/30/17 14:21> Objective - Vital Signs/Intake and Output Vital Signs (last 24 hours): Temp Pulse Resp BP Pulse Ox 97.5 F L 86 18 149/85 100 04/28/17 17:06 04/28/17 17:06 04/28/17 17:06 04/28/17 17:06 04/28/17 17:06 - Labs Labs: 04/25/17 07:00 PT 13.8 SECONDS (9.4-12.5) H 04/19/17 06:30 INR 1.25 (0.93-1.08) H 04/19/17 06:30 Attending/Attestation - Attestation I have personally seen and examined this patient.: Yes I have fully participated in the care of the patient.: Yes I have reviewed all pertinent clinical information, including history, physical exam and plan: Yes
--- NOTE | 2017-04-23 18:16 | PN ---
DATE: 04/23/2017 SUBJECTIVE: The patient is in bed in no acute distress, nontoxic. PHYSICAL EXAMINATION VITAL SIGNS: Temperature is 97, blood pressure is 150/80, respiratory rate of 18. HEENT: Unremarkable. NECK: Supple. LUNGS: Decreased breath sounds. HEART: Normal S1 and S2. ABDOMEN: Soft, nontender. LABORATORY DATA: Reveals the BUN 31, creatinine of 1.9. Coagulation is noted. Microbiology is reviewed. ASSESSMENT AND PLAN: This is an 82-year-old female, who is seen early this morning. The patient's daughter at the bedside with hypertension, carotid disease, pulmonary hypertension, renal disease, bilateral lower extremity cellulitis, acute diastolic congestive heart failure, chronic congestive heart failure with Enterobacter and Enterococcus urinary tract infection. Currently, the legs are greatly improved, may be able to switch to p.o. Vantin, which is cefpodoxime at 100 mg p.o. b.i.d. for another 3 days to 5 days. Case discussed with Dr. Seo. Chago Hilliard MD
[2017-04-24] MEDS: cefTRIAXone 1 gm 1 GM/100 ML BAG IVPB SCH (05:00)
[2017-04-24] MEDS: Insulin Reg-LOW-Coverage SC SCH ×4 (06:51→22:02)
[2017-04-24 07:30] LABS: CALCIUM 9.6 mg/dL (8.4-10.5)
--- NOTE | 2017-04-24 08:12 | CP.PCM.PN ---
Subjective - Date & Time of Evaluation Date of Evaluation: 04/24/17 Time of Evaluation: 07:00 - Subjective Subjective: Stable in TCU. She feels better. Legs better. No CP or SOB. Not much amb/PT yet. She will try today. V/S noted. P = 70 - 90's PE: Lungs: clear Cor: Irreg., S1S2 Abd.: soft Ext. Cellulitic, improved. Min. edema now. Neuro.: alert Labs: Cr = 1.9, Na+= 140, K+= 5.2 Objective - Vital Signs/Intake and Output Vital Signs (last 24 hours): Temp Pulse Resp BP Pulse Ox 98.3 F 70 18 151/88 H 97 04/23/17 17:59 04/23/17 17:59 04/23/17 17:59 04/23/17 17:59 04/23/17 17:59 - Medications Medications: Current Medications Acarbose (Precose 50 Mg Tab) 100 mg PO 0800 [facility] Last Admin: 04/23/17 08:30 Dose: 100 mg Albuterol/Ipratropium (Duoneb 3 Mg/0.5 Mg (3 Ml) Ud) 3 ml IH [id number] PRN; Protocol PRN Reason: Shortness of Breath Apixaban (Eliquis) 2.5 mg PO BID [facility] PRN Reason: Protocol Last Admin: 04/23/17 17:27 Dose: 2.5 mg Aspirin (Aspirin Chewable) 81 mg PO 0800 [facility] PRN Reason: Protocol Last Admin: 04/23/17 08:32 Dose: 81 mg Atorvastatin Calcium (Lipitor) 20 mg PO HS [facility] PRN Reason: Protocol Last Admin: 04/23/17 21:35 Dose: 20 mg Betamethasone/Clotrimazole (Lotrisone) 0 gm TOP BID [facility] PRN Reason: Protocol Last Admin: 04/23/17 17:27 Dose: 1 applic Furosemide (Lasix) 40 mg IVP DAILY [facility] Last Admin: 04/23/17 10:51 Dose: 40 mg Glipizide (Glucotrol) 10 mg PO 0730,1700 [facility] PRN Reason: Protocol Last Admin: 04/23/17 17:27 Dose: 10 mg Ceftriaxone Sodium (Rocephin 1 Gram Ivpb) 1 gm in 100 mls @ 100 mls/hr IVPB 0600 [facility] PRN Reason: Protocol Stop: 04/25/17 06:59 Last Admin: 04/24/17 05:00 Dose: 100 mls/hr Insulin Human Regular (Humulin R Low) 0 units SC ACHS [facility]ERE[facility] PRN Reason: Protocol Last Admin: 04/24/17 06:51 Dose: Not Given Oxycodone/Acetaminophen (Percocet 5/325 Mg Tab) 1 tab PO Q4H PRN PRN Reason: Pain, moderate (4-7) Stop: 04/24/17 15:53 Last Admin: 04/22/17 05:20 Dose: 1 tab - Labs Labs: 04/24/17 06:00 PT 13.8 SECONDS (9.4-12.5) H 04/19/17 06:30 INR 1.25 (0.93-1.08) H 04/19/17 06:30 Assessment and Plan - Assessment and Plan (Free Text) Assessment: Edema/Cellulitis UTI Hyperkalemia AF CHF/DD Echo: NL LV, Mild , Mild MS, Moderate MR, Moderate TR, Moderate/Severe PH Pleural effusion CKD Diabetes HBP Former Smoker GB Surgery Plan: AB as per ID, Podiatry, Dr. Seo IV Lasix Continue low dose Elquis. Monitor labs. Watch K+. may need dose of Kayexalate. OOB/PT/Rehab Efforts
[2017-04-24] MEDS: Clotrimazole/Betamethasone Cream(15 gm) TOP SCH ×2 (10:23→17:22)
--- NOTE | 2017-04-24 11:00 | PN ---
DATE: 04/24/2017 SUBJECTIVE: The patient is in bed, in no acute distress, nontoxic. PHYSICAL EXAMINATION: VITAL SIGNS: Temperature is 98, blood pressure is 150/80, respiratory rate of 18, and heart rate of 95. HEENT: Unremarkable. NECK: Supple. LUNGS: Decreased breath sounds. HEART: Normal S1 and S2. ABDOMEN: Soft and nontender. LABORATORY DATA: Reveals chemistries, BUN of 29 and creatinine of 1.9. Microbiology is noted. Examination of leg is greatly improved. ASSESSMENT AND PLAN: This is an 82-year-old female who was seen early this morning with hypertension, carotid disease, pulmonary hypertension, renal disease, bilateral lower extremity cellulitis, acute diastolic congestive heart failure, chronic congestive heart failure, and Enterobacter and Enterococcus urinary tract. Currently, the legs are greatly improved. May be we will be able to switch to p.o. Vantin upon discharge with cefpodoxime 100 mg p.o. b.i.d. for another 3 days. Chago Hilliard MD
--- NOTE | 2017-04-24 11:58 | CP.PCM.PN ---
<Brian Chaparro - Last Filed: 04/24/17 11:55> Subjective - Date & Time of Evaluation Date of Evaluation: 04/24/17 Time of Evaluation: 11:55 - Subjective Subjective: Podiatry Progress Note- Dr. Jones/Dr. Camacho 82 y.o female seen and evaluated in TCU for weeping bilaterally leg ulcerations. She is seen resting comfortably in bed, in NAD, and AA0x3. Patient denies acute overnight events. She is seen at bedside with physical therapy. Dressing is clean,dry, and intact without strikethrough noted during this visitation. Nursing changed the dressing in the AM. Patient has no new pedal complaints Objective - Vital Signs/Intake and Output Vital Signs (last 24 hours): Temp Pulse Resp BP Pulse Ox 97.8 F 89 18 158/87 H 96 04/24/17 11:25 04/24/17 11:25 04/24/17 11:25 04/24/17 11:25 04/24/17 11:25 - Medications Medications: Current Medications Acarbose (Precose 50 Mg Tab) 100 mg PO 0800 [facility] Last Admin: 04/24/17 08:03 Dose: 100 mg Albuterol/Ipratropium (Duoneb 3 Mg/0.5 Mg (3 Ml) Ud) 3 ml IH [id number] PRN; Protocol PRN Reason: Shortness of Breath Apixaban (Eliquis) 2.5 mg PO BID [facility] PRN Reason: Protocol Last Admin: 04/24/17 10:22 Dose: 2.5 mg Aspirin (Aspirin Chewable) 81 mg PO 0800 [facility] PRN Reason: Protocol Last Admin: 04/24/17 08:03 Dose: 81 mg Atorvastatin Calcium (Lipitor) 20 mg PO HS [facility]ERENA PRN Reason: Protocol Last Admin: 04/23/17 21:35 Dose: 20 mg Betamethasone/Clotrimazole (Lotrisone) 0 gm TOP BID [facility]ERE[facility] PRN Reason: Protocol Last Admin: 04/24/17 10:23 Dose: 1 applic Furosemide (Lasix) 40 mg IVP DAILY [facility] Last Admin: 04/24/17 10:23 Dose: 40 mg Glipizide (Glucotrol) 10 mg PO 0730,1700 [facility] PRN Reason: Protocol Last Admin: 04/24/17 08:03 Dose: 10 mg Ceftriaxone Sodium (Rocephin 1 Gram Ivpb) 1 gm in 100 mls @ 100 mls/hr IVPB 0600 [facility] PRN Reason: Protocol Stop: 04/25/17 06:59 Last Admin: 04/24/17 05:00 Dose: 100 mls/hr Insulin Human Regular (Humulin R Low) 0 units SC ACHS VERENA PRN Reason: Protocol Last Admin: 04/24/17 11:35 Dose: Not Given Oxycodone/Acetaminophen (Percocet 5/325 Mg Tab) 1 tab PO Q4H PRN PRN Reason: Pain, moderate (4-7) Stop: 04/24/17 15:53 Last Admin: 04/22/17 05:20 Dose: 1 tab - Labs Labs: 04/24/17 06:00 PT 13.8 SECONDS (9.4-12.5) H 04/19/17 06:30 INR 1.25 (0.93-1.08) H 04/19/17 06:30 - Constitutional Appears: Well, Non-toxic, No Acute Distress - Extremities Exam Additional comments: Dressing is clean, dry and intact without strikethrough - Neurological Exam Neurological Exam: Alert, Awake, Oriented x3 - Psychiatric Exam Psychiatric exam: Normal Affect, Normal Mood Assessment and Plan - Assessment and Plan (Free Text) Assessment: 82 y.o female with multiple ulcerations and cellulitis secondary to LE edema, improving Plan: Patient examined and evaluated Labs, charts, vitals reviewed Discussed plan in detail with attending Dr. Jones/Dr. Freeman Dressing remain intact. Nursing to apply maxsorb/abd/rose RLE in AM and dressing taken off in PM Will need to order arterial doppler- will hold off at the moment due to patient' s bilaterally LE pain C/w physical therapy Podiatry willl continue to follow while in house <Vahid Camacho - Last Filed: 04/25/17 08:42> Objective - Vital Signs/Intake and Output Vital Signs (last 24 hours): Temp Pulse Resp BP Pulse Ox 97.6 F 82 20 143/82 95 04/25/17 06:00 04/25/17 06:00 04/25/17 06:00 04/25/17 06:00 04/25/17 06:00 - Medications Medications: Current Medications Acarbose (Precose 50 Mg Tab) 100 mg PO 0800 [facility] Last Admin: 04/25/17 08:22 Dose: 100 mg Albuterol/Ipratropium (Duoneb 3 Mg/0.5 Mg (3 Ml) Ud) 3 ml IH [id number] PRN; Protocol PRN Reason: Shortness of Breath Apixaban (Eliquis) 2.5 mg PO BID [facility] PRN Reason: Protocol Last Admin: 04/24/17 17:22 Dose: 2.5 mg Aspirin (Aspirin Chewable) 81 mg PO 0800 [facility] PRN Reason: Protocol Last Admin: 04/25/17 08:21 Dose: 81 mg Atorvastatin Calcium (Lipitor) 20 mg PO HS [facility]ERE[facility] PRN Reason: Protocol Last Admin: 04/24/17 22:02 Dose: 20 mg Betamethasone/Clotrimazole (Lotrisone) 0 gm TOP BID [facility]ERE[facility] PRN Reason: Protocol Last Admin: 04/24/17 17:22 Dose: 1 applic Furosemide (Lasix) 40 mg IVP DAILY [facility] Last Admin: 04/24/17 10:23 Dose: 40 mg Glipizide (Glucotrol) 10 mg PO 0730,1700 [facility] PRN Reason: Protocol Last Admin: 04/25/17 08:21 Dose: 10 mg Insulin Human Regular (Humulin R Low) 0 units SC ACHS VERENA PRN Reason: Protocol Last Admin: 04/25/17 07:07 Dose: 1 units Vitamin A (Vitamin A & D Oint Ud Foilpak) 1 ea TOP TID PRN; Protocol PRN Reason: Dry nasal passages - Labs Labs: 04/25/17 07:00 PT 13.8 SECONDS (9.4-12.5) H 04/19/17 06:30 INR 1.25 (0.93-1.08) H 04/19/17 06:30 Attending/Attestation - Attestation I have personally seen and examined this patient.: Yes I have fully participated in the care of the patient.: Yes I have reviewed all pertinent clinical information, including history, physical exam and plan: Yes
[2017-04-24] MEDS ORDERED: Vitamins A & D Oint UD Foilpak TOP PRN (18:28)
[2017-04-25] MEDS: cefTRIAXone 1 gm 1 GM/100 ML BAG IVPB SCH (05:10)
[2017-04-25] MEDS: Insulin Reg-LOW-Coverage SC SCH ×4 (07:07→22:00)
[2017-04-25 07:58] LABS: CALCIUM 9.7 mg/dL (8.4-10.5)
--- NOTE | 2017-04-25 08:43 | PN ---
DATE: 04/25/2017 SUBJECTIVE: The patient is seen, lying in bed in TCU. She is feeling comfortable. Plans made for discharge today; however, arrangements cannot be made for her home oxygen therapy and discharge has been delayed. CURRENT MEDICATIONS: Include aspirin, DuoNeb inhaler, Eliquis 2.5 mg b.i.d., Glucotrol, insulin coverage, Lasix 40 mg IV daily, Lipitor 20 mg daily, Lotrisone and Precose. PHYSICAL EXAMINATION: GENERAL: She is an elderly woman who appears comfortable at rest. VITAL SIGNS: Her blood pressure is 142/80 with pulse of 82 and respirations are 14. HEENT: No JVD. CHEST: Few scattered rhonchi. HEART: PMI displaced laterally, systolic murmur present at the left sternal border. ABDOMEN: Soft and nontender. Normoactive bowel sounds. EXTREMITIES: 1+ leg edema. DIAGNOSTIC DATA: No blood work pending from this morning. IMPRESSION: 1. Lower extremity cellulitis, clinically improved. 2. Chronic atrial fibrillation. 3. Mild aortic stenosis. 4. Moderate mitral and tricuspid regurgitation. 5. History of diabetes and hypertension. RECOMMENDATIONS: While in the hospital, we will continue with IV Lasix for now. The rest of medications she continue when changed. Conservative management is most appropriate at this time. Outpatient followup will be arranged upon discharge. Sameer Dougherty MD
--- NOTE | 2017-04-25 09:48 | CP.PCM.PN ---
<Brian Chaparro - Last Filed: 04/25/17 09:44> Subjective - Date & Time of Evaluation Date of Evaluation: 04/25/17 Time of Evaluation: 09:45 - Subjective Subjective: Podiatry Progress Note- Dr. Jones/Dr. Camacho 82 y.o female seen and evaluated in TCU for weeping bilaterally leg ulcerations with attending Dr. Camacho. She is seen resting comfortably out of bed without dressing on, in NAD, and AA0x3. Patient denies acute overnight events. Patient reports that she did not feel like walking with physical therapy yesterday. She reports she will try in the next encounter. Patient has no new pedal complaints. Patient denies n/v/sob/cp/chills/f or d Objective - Vital Signs/Intake and Output Vital Signs (last 24 hours): Temp Pulse Resp BP Pulse Ox 97.6 F 82 20 143/82 95 04/25/17 06:00 04/25/17 06:00 04/25/17 06:00 04/25/17 06:00 04/25/17 06:00 - Medications Medications: Current Medications Acarbose (Precose 50 Mg Tab) 100 mg PO 0800 [facility] Last Admin: 04/25/17 08:22 Dose: 100 mg Albuterol/Ipratropium (Duoneb 3 Mg/0.5 Mg (3 Ml) Ud) 3 ml IH [id number] PRN; Protocol PRN Reason: Shortness of Breath Apixaban (Eliquis) 2.5 mg PO BID [facility] PRN Reason: Protocol Last Admin: 04/24/17 17:22 Dose: 2.5 mg Aspirin (Aspirin Chewable) 81 mg PO 0800 [facility] PRN Reason: Protocol Last Admin: 04/25/17 08:21 Dose: 81 mg Atorvastatin Calcium (Lipitor) 20 mg PO HS [facility] PRN Reason: Protocol Last Admin: 04/24/17 22:02 Dose: 20 mg Betamethasone/Clotrimazole (Lotrisone) 0 gm TOP BID [facility] PRN Reason: Protocol Last Admin: 04/24/17 17:22 Dose: 1 applic Furosemide (Lasix) 40 mg IVP DAILY [facility] Last Admin: 04/24/17 10:23 Dose: 40 mg Glipizide (Glucotrol) 10 mg PO 0730,1700 [facility] PRN Reason: Protocol Last Admin: 04/25/17 08:21 Dose: 10 mg Insulin Human Regular (Humulin R Low) 0 units SC ACHS [facility]ERENA PRN Reason: Protocol Last Admin: 04/25/17 07:07 Dose: 1 units Vitamin A (Vitamin A & D Oint Ud Foilpak) 1 ea TOP TID PRN; Protocol PRN Reason: Dry nasal passages - Labs Labs: 04/25/17 07:00 PT 13.8 SECONDS (9.4-12.5) H 04/19/17 06:30 INR 1.25 (0.93-1.08) H 04/19/17 06:30 - Constitutional Appears: Well, Non-toxic, No Acute Distress - Extremities Exam Additional comments: LE examination: Vasc: DP and PT nonpalpable secondary to edema, temperature gradient WNL, CFT < 3 seconds x10 digits, edema noted to LE, improving Ortho: mild pain with palpation to the LE, pain is improving Neuro: gross and protective sensation diminished bilaterally Derm: Multiple superficial ulcerations to the LE with wound base fibro-granular , serous drainage noted. Hyperkeratotic skin lesions noted to the LE. Erythema noted to entire LE, improving. No purulence, no malodor, no tunneling, no proble to bone, no undermining noted - Neurological Exam Neurological Exam: Alert, Awake, Oriented x3 - Psychiatric Exam Psychiatric exam: Normal Affect, Normal Mood Assessment and Plan - Assessment and Plan (Free Text) Assessment: 82 y.o female with multiple ulcerations and cellulitis secondary to LE edema, improving Plan: Patient examined and evaluated Labs, charts, vitals reviewed Discussed plan in detail with attending Dr. Jones/Dr. Camacho Dressing changed with maxsorb, dsd, abd, and rose to LE bilaterally. TEO wrap lightly to LE Nursing to apply maxsorb/abd/rose RLE in AM and dressing taken off in PM In the future will need to order arterial doppler. May be done as an outpatient. Podiatry willl continue to follow while in house Upon discharge, patient to change dressing q48 hour with calcium alginate, gauze , and rose with emphasis on lower extremity elevation. <Vahid Camacho - Last Filed: 04/28/17 10:51> Objective - Vital Signs/Intake and Output Vital Signs (last 24 hours): Temp Pulse Resp BP Pulse Ox 98.8 F 98 H 15 169/86 H 96 04/27/17 17:54 04/27/17 17:54 04/27/17 17:54 04/28/17 10:06 04/26/17 15:37 - Medications Medications: Current Medications Acarbose (Precose 50 Mg Tab) 100 mg PO 0800 [facility] Last Admin: 04/28/17 09:00 Dose: 100 mg Albuterol/Ipratropium (Duoneb 3 Mg/0.5 Mg (3 Ml) Ud) 3 ml IH [id number] PRN; Protocol PRN Reason: Shortness of Breath Apixaban (Eliquis) 2.5 mg PO BID [facility] PRN Reason: Protocol Last Admin: 04/28/17 10:06 Dose: 2.5 mg Aspirin (Aspirin Chewable) 81 mg PO 0800 [facility] PRN Reason: Protocol Last Admin: 04/28/17 09:00 Dose: 81 mg Atorvastatin Calcium (Lipitor) 20 mg PO HS [facility] PRN Reason: Protocol Last Admin: 04/27/17 22:01 Dose: 20 mg Betamethasone/Clotrimazole (Lotrisone) 0 gm TOP BID [facility] PRN Reason: Protocol Last Admin: 04/28/17 10:09 Dose: 1 applic Furosemide (Lasix) 40 mg IVP DAILY [facility] Last Admin: 04/28/17 10:06 Dose: 40 mg Glipizide (Glucotrol) 10 mg PO 0730,1700 [facility] PRN Reason: Protocol Last Admin: 04/28/17 09:00 Dose: 10 mg Insulin Human Regular (Humulin R Low) 0 units SC ACHS [facility] PRN Reason: Protocol Last Admin: 04/28/17 06:57 Dose: Not Given Vitamin A (Vitamin A & D Oint Ud Foilpak) 1 ea TOP TID PRN; Protocol PRN Reason: Dry nasal passages - Labs Labs: 04/25/17 07:00 PT 13.8 SECONDS (9.4-12.5) H 04/19/17 06:30 INR 1.25 (0.93-1.08) H 04/19/17 06:30 Attending/Attestation - Attestation I have personally seen and examined this patient.: Yes I have fully participated in the care of the patient.: Yes I have reviewed all pertinent clinical information, including history, physical exam and plan: Yes
[2017-04-25] MEDS: Clotrimazole/Betamethasone Cream(15 gm) TOP SCH ×2 (09:49→17:26)
--- NOTE | 2017-04-25 20:04 | PN ---
DATE: 04/25/2017 SUBJECTIVE: The patient is in bed, in no acute distress, nontoxic. PHYSICAL EXAMINATION VITAL SIGNS: Temperature is 98, blood pressure is 150/70 and respiratory rate of 18. HEENT: Unremarkable. NECK: Supple. LUNGS: Have decreased breath sounds. HEART: Normal S1 and S2. ABDOMEN: Soft and nontender. LABORATORY DATA: Noted. Chemistries are reviewed. Microbiology is reviewed. Examination of leg much improved. ASSESSMENT AND PLAN: This is an 83-year-old female who was seen early this morning with carotid disease, history of pulmonary hypertension, renal disease, bilateral lower extremity cellulitis and acute diastolic congestive heart failure, with chronic congestive heart failure and Enterobacter and Enterococcus urinary tract infection with leg cellulitis, the patient's legs have actually greatly improved well. Currently, we will discontinue the antibiotics. Chago Hilliard MD
[2017-04-26] MEDS: Insulin Reg-LOW-Coverage SC SCH ×4 (06:46→22:57)
[2017-04-26] MEDS: Clotrimazole/Betamethasone Cream(15 gm) TOP SCH ×2 (09:38→17:32)
--- NOTE | 2017-04-26 13:06 | CP.PCM.PN ---
<Brian Chaparro - Last Filed: 04/26/17 13:03> Subjective - Date & Time of Evaluation Date of Evaluation: 04/26/17 Time of Evaluation: 10:00 - Subjective Subjective: Podiatry Progress Note- Dr. Jones/Dr. Camacho 82 y.o female seen and evaluated in TCU for weeping bilaterally leg ulcerations with daughter at bedside. She is seen resting comfortably in bed, in NAD, and AA0x3. Patient denies acute overnight events. Patient is seen with dressing off. Patient reports that she has not gone to physical therapy today yet. Patient has no new pedal complaints. Patient denies n/v/sob/cp/chills/f or d Objective - Vital Signs/Intake and Output Vital Signs (last 24 hours): Temp Pulse Resp BP Pulse Ox 98.4 F 104 H 24 154/84 H 97 04/26/17 06:00 04/26/17 06:00 04/26/17 06:00 04/26/17 09:37 04/26/17 06:00 - Medications Medications: Current Medications Acarbose (Precose 50 Mg Tab) 100 mg PO 0800 [facility] Last Admin: 04/26/17 08:18 Dose: 100 mg Albuterol/Ipratropium (Duoneb 3 Mg/0.5 Mg (3 Ml) Ud) 3 ml IH [id number] PRN; Protocol PRN Reason: Shortness of Breath Apixaban (Eliquis) 2.5 mg PO BID [facility] PRN Reason: Protocol Last Admin: 04/26/17 09:36 Dose: 2.5 mg Aspirin (Aspirin Chewable) 81 mg PO 0800 [facility] PRN Reason: Protocol Last Admin: 04/26/17 08:17 Dose: 81 mg Atorvastatin Calcium (Lipitor) 20 mg PO HS [facility] PRN Reason: Protocol Last Admin: 04/25/17 21:36 Dose: 20 mg Betamethasone/Clotrimazole (Lotrisone) 0 gm TOP BID [facility] PRN Reason: Protocol Last Admin: 04/26/17 09:38 Dose: Not Given Furosemide (Lasix) 40 mg IVP DAILY [facility] Last Admin: 04/26/17 09:37 Dose: 40 mg Glipizide (Glucotrol) 10 mg PO 0730,1700 [facility] PRN Reason: Protocol Last Admin: 04/26/17 08:18 Dose: 10 mg Insulin Human Regular (Humulin R Low) 0 units SC ACHS [facility] PRN Reason: Protocol Last Admin: 04/26/17 06:46 Dose: Not Given Vitamin A (Vitamin A & D Oint Ud Foilpak) 1 ea TOP TID PRN; Protocol PRN Reason: Dry nasal passages - Labs Labs: 04/25/17 07:00 PT 13.8 SECONDS (9.4-12.5) H 04/19/17 06:30 INR 1.25 (0.93-1.08) H 04/19/17 06:30 - Constitutional Appears: Well, Non-toxic, No Acute Distress - Extremities Exam Additional comments: LE examination: Vasc: DP and PT nonpalpable secondary to edema, temperature gradient WNL, CFT < 3 seconds x10 digits, edema noted to LE, improving Ortho: mild pain with palpation to the LE, pain is improving Neuro: gross and protective sensation diminished bilaterally Derm: Multiple superficial ulcerations to the LE with wound base fibro-granular , serous drainage noted. Hyperkeratotic skin lesions noted to the LE. Erythema noted to entire LE, improving. No purulence, no malodor, no tunneling, no proble to bone, no undermining noted - Neurological Exam Neurological Exam: Alert, Awake, Oriented x3 - Psychiatric Exam Psychiatric exam: Normal Affect, Normal Mood Assessment and Plan - Assessment and Plan (Free Text) Assessment: 82 y.o female with multiple ulcerations and cellulitis secondary to LE edema, improving Plan: Patient examined and evaluated Labs, charts, vitals reviewed Discussed plan in detail with attending Dr. Jones/Dr. Camacho Dressing changed with maxsorb, dsd, abd, and rose to LE bilaterally. TEO wrap lightly to LE Nursing to apply maxsorb/abd/rose RLE in AM and dressing taken off in PM In the future will need to order arterial doppler. May be done as an outpatient. Podiatry willl continue to follow while in house Upon discharge, patient to change dressing q48 hour with calcium alginate, gauze , and rose with emphasis on lower extremity elevation. <Vahid Camacho - Last Filed: 04/28/17 10:54> Objective - Vital Signs/Intake and Output Vital Signs (last 24 hours): Temp Pulse Resp BP Pulse Ox 98.8 F 98 H 15 169/86 H 96 04/27/17 17:54 04/27/17 17:54 04/27/17 17:54 04/28/17 10:06 04/26/17 15:37 - Medications Medications: Current Medications Acarbose (Precose 50 Mg Tab) 100 mg PO 0800 [facility] Last Admin: 04/28/17 09:00 Dose: 100 mg Albuterol/Ipratropium (Duoneb 3 Mg/0.5 Mg (3 Ml) Ud) 3 ml IH [id number] PRN; Protocol PRN Reason: Shortness of Breath Apixaban (Eliquis) 2.5 mg PO BID [facility] PRN Reason: Protocol Last Admin: 04/28/17 10:06 Dose: 2.5 mg Aspirin (Aspirin Chewable) 81 mg PO 0800 [facility] PRN Reason: Protocol Last Admin: 04/28/17 09:00 Dose: 81 mg Atorvastatin Calcium (Lipitor) 20 mg PO HS [facility] PRN Reason: Protocol Last Admin: 04/27/17 22:01 Dose: 20 mg Betamethasone/Clotrimazole (Lotrisone) 0 gm TOP BID [facility] PRN Reason: Protocol Last Admin: 04/28/17 10:09 Dose: 1 applic Furosemide (Lasix) 40 mg IVP DAILY [facility] Last Admin: 04/28/17 10:06 Dose: 40 mg Glipizide (Glucotrol) 10 mg PO 0730,1700 [facility] PRN Reason: Protocol Last Admin: 04/28/17 09:00 Dose: 10 mg Insulin Human Regular (Humulin R Low) 0 units SC ACHS [facility] PRN Reason: Protocol Last Admin: 04/28/17 06:57 Dose: Not Given Vitamin A (Vitamin A & D Oint Ud Foilpak) 1 ea TOP TID PRN; Protocol PRN Reason: Dry nasal passages - Labs Labs: 04/25/17 07:00 PT 13.8 SECONDS (9.4-12.5) H 04/19/17 06:30 INR 1.25 (0.93-1.08) H 04/19/17 06:30 Attending/Attestation - Attestation I have personally seen and examined this patient.: Yes I have fully participated in the care of the patient.: Yes I have reviewed all pertinent clinical information, including history, physical exam and plan: Yes
--- NOTE | 2017-04-26 15:32 | PN ---
DATE: 04/26/2017 SUBJECTIVE: The patient is in bed in no acute distress, nontoxic. The patient's daughter is at the bedside. PHYSICAL EXAMINATION: VITAL SIGNS: Temperature is 98, blood pressure is 140/90, respiratory 24, and heart rate of 104. HEENT: Unremarkable. NECK: Supple. LUNGS: Have decreased breath sounds. HEART: Normal S1 and S2. ABDOMEN: Soft. EXTREMITIES: On examination her legs have greatly improved. LABORATORY EXAMINATION: Reveals chemistries are noted. ASSESSMENT AND PLAN: This is an 82-year-old female, who was seen early this morning with carotid disease, history of pulmonary hypertension, renal disease, bilateral lower extremity cellulitis, acute diastolic congestive heart failure, chronic congestive heart failure, and Enterobacter and enterococcus urinary tract infection with leg cellulitis has greatly improved. Currently off of antibiotics, afebrile and we will follow with you. Chago Hilliard MD
[2017-04-27] MEDS: Insulin Reg-LOW-Coverage SC SCH ×4 (06:57→22:01)
[2017-04-27] MEDS: Clotrimazole/Betamethasone Cream(15 gm) TOP SCH ×2 (11:03→17:56)
--- NOTE | 2017-04-27 13:56 | CP.PCM.PN ---
<Brian Chaparro - Last Filed: 04/27/17 13:52> Subjective - Date & Time of Evaluation Date of Evaluation: 04/27/17 Time of Evaluation: 10:30 - Subjective Subjective: Podiatry Progress Note- Dr. Jones/Dr. Camacho 82 y.o female seen and evaluated in TCU for weeping bilaterally leg ulcerations with daughter at bedside. She is seen sitting in bed, in NAD, and AA0x3. Patient denies acute overnight events. Patient is seen with dressing off. Patient reports that she did well in physical therapy yesterday. She was able to walk to the nursing station. Patient reports that she was unable to tolerate the TEO and took them off. Patient has no new pedal complaints. Patient denies n /v/sob/cp/chills/f or d Objective - Vital Signs/Intake and Output Vital Signs (last 24 hours): Temp Pulse Resp BP Pulse Ox 98.4 F 104 H 24 164/88 H 96 04/26/17 06:00 04/26/17 06:00 04/26/17 06:00 04/27/17 11:02 04/26/17 15:37 - Medications Medications: Current Medications Acarbose (Precose 50 Mg Tab) 100 mg PO 0800 [facility] Last Admin: 04/27/17 08:16 Dose: 100 mg Albuterol/Ipratropium (Duoneb 3 Mg/0.5 Mg (3 Ml) Ud) 3 ml IH [id number] PRN; Protocol PRN Reason: Shortness of Breath Apixaban (Eliquis) 2.5 mg PO BID [facility] PRN Reason: Protocol Last Admin: 04/27/17 11:01 Dose: 2.5 mg Aspirin (Aspirin Chewable) 81 mg PO 0800 [facility] PRN Reason: Protocol Last Admin: 04/27/17 08:16 Dose: 81 mg Atorvastatin Calcium (Lipitor) 20 mg PO HS [facility] PRN Reason: Protocol Last Admin: 04/26/17 21:23 Dose: 20 mg Betamethasone/Clotrimazole (Lotrisone) 0 gm TOP BID [facility] PRN Reason: Protocol Last Admin: 04/27/17 11:03 Dose: 1 applic Furosemide (Lasix) 40 mg IVP DAILY [facility] Last Admin: 04/27/17 11:02 Dose: 40 mg Glipizide (Glucotrol) 10 mg PO 0730,1700 [facility] PRN Reason: Protocol Last Admin: 04/27/17 08:16 Dose: 10 mg Insulin Human Regular (Humulin R Low) 0 units SC ACHS [facility] PRN Reason: Protocol Last Admin: 04/27/17 11:29 Dose: Not Given Vitamin A (Vitamin A & D Oint Ud Foilpak) 1 ea TOP TID PRN; Protocol PRN Reason: Dry nasal passages - Labs Labs: 04/25/17 07:00 PT 13.8 SECONDS (9.4-12.5) H 04/19/17 06:30 INR 1.25 (0.93-1.08) H 04/19/17 06:30 - Constitutional Appears: Well, Non-toxic, No Acute Distress - Extremities Exam Additional comments: LE examination: Vasc: DP and PT nonpalpable secondary to edema, temperature gradient WNL, CFT < 3 seconds x10 digits, edema noted to the LE Ortho: mild pain with palpation to the LE, pain is improving Neuro: gross and protective sensation diminished bilaterally Derm: Multiple superficial ulcerations to the LE with wound base fibro-granular , serous drainage noted. Hyperkeratotic skin lesions noted to the LE. Erythema noted to entire LE, improving and stable. No purulence, no malodor, no tunneling , no proble to bone, no undermining noted - Neurological Exam Neurological Exam: Alert, Awake, Oriented x3 - Psychiatric Exam Psychiatric exam: Normal Affect, Normal Mood Assessment and Plan - Assessment and Plan (Free Text) Assessment: 82 y.o female with multiple ulcerations and cellulitis secondary to LE edema, improving Plan: Patient examined and evaluated Labs, charts, vitals reviewed Discussed plan in detail with attending Dr. Jones/Dr. Camacho Dressing changed with maxsorb, dsd, abd, and rose to LE bilaterally. TEO wrap lightly to LE, educated on importance of keeping TEO on Elevate LE while in bed Nursing to apply maxsorb/abd/rose RLE in AM and dressing taken off in PM In the future will need to order arterial doppler. May be done as an outpatient. Podiatry willl continue to follow while in house Upon discharge, patient to change dressing q48 hour with calcium alginate, gauze , and rose with emphasis on lower extremity elevation. <Blanche Jones - Last Filed: 04/30/17 14:29> Objective - Vital Signs/Intake and Output Vital Signs (last 24 hours): Temp Pulse Resp BP Pulse Ox 97.5 F L 86 18 149/85 100 04/28/17 17:06 04/28/17 17:06 04/28/17 17:06 04/28/17 17:06 04/28/17 17:06 - Labs Labs: 04/25/17 07:00 PT 13.8 SECONDS (9.4-12.5) H 04/19/17 06:30 INR 1.25 (0.93-1.08) H 04/19/17 06:30 Attending/Attestation - Attestation I have personally seen and examined this patient.: Yes I have fully participated in the care of the patient.: Yes I have reviewed all pertinent clinical information, including history, physical exam and plan: Yes
--- NOTE | 2017-04-27 14:35 | PN ---
DATE: 04/27/2017 SUBJECTIVE: The patient is in bed, in no acute distress, nontoxic. OBJECTIVE: VITAL SIGNS: Temperature is 98, blood pressure is 160/80, respiratory rate of 16. HEENT: Unremarkable. NECK: Supple. LUNGS: Have decreased breath sounds. HEART: Normal S1, S2. ABDOMEN: Soft and nontender. EXTREMITIES: Examination of the legs have much improved. LABORATORY EXAMINATION: Reviewed and review of orders reveals the patient to be off of antibiotics. ASSESSMENT AND PLAN: An 82-year-old female seen early this morning with carotid disease, history of pulmonary hypertension, renal disease, bilateral lower extremity cellulitis, acute diastolic congestive heart failure, and chronic congestive heart failure, Enterobacter and Enterococcus urinary tract infection, currently the legs have greatly improved, off of antibiotics, afebrile. Chago Hilliard MD
[2017-04-28] MEDS: Insulin Reg-LOW-Coverage SC SCH ×3 (06:57→17:30)
--- NOTE | 2017-04-28 07:04 | PN ---
DATE: 04/28/2017 PULMONARY NOTE SUBJECTIVE: The patient appears comfortable this morning. She is not short of breath at rest. PHYSICAL EXAMINATION VITAL SIGNS: (Last noted in the computer): Temperature is 98.8, pulse this morning is approximately 80, respiratory rate 16/18, blood pressure 157/97. Oxygen saturation on nasal cannula is 96%. HEENT: Normocephalic, atraumatic. No JVD. CARDIOVASCULAR: Systolic ejection murmur at the lower left sternal border. Questionable S3 gallop. LUNGS: Minimal crackles at the bases. No rhonchi. No wheezing. EXTREMITIES: Mild edema. No cyanosis, no clubbing. Calves are nontender to palpation. GI: Abdomen is soft, nontender and nondistended. Bowel sounds are positive. SKIN: No acute rash. NEUROLOGIC: Limited at the present time. IMPRESSION: 1. Acute congestive heart failure. 2. Atrial fibrillation. 3. Small bilateral pleural effusions. 4. Moderate pulmonary hypertension. 5. Oxygen desaturation with exercise. PLAN: I did discuss the case with the night nurse at length. I have also discussed the case with the patient at length, and reviewed the chart at length. This is the first time I am seeing this patient. Apparently, she is scheduled for discharge later today. I did review the echocardiogram with the patient at length. The echocardiogram does show moderate pulmonary hypertension. I highly advised the patient to follow up with me in the office, and left her my card/information. She states she will think about it. In the meantime, I would continue with the treatment for congestive heart failure and valvular heart disease as per Cardiology. Inputs are noted. The patient remains on Lasix/afterload reduction. The patient also remains on nebulizer treatments - p.r.n. basis. Clinical status of the patient is significantly improved - compared to the initial presentation. Hopefully, the patient will follow up with me in the office. I will discuss the above with the attending physician. [place] MD MTDValeria
--- NOTE | 2017-04-28 09:10 | PN ---
DATE: 04/25/2017 PULMONARY PROGRESS NOTE SUBJECTIVE: The patient was seen and examined on Transitional Care Unit. She states she feels better. She is on oxygen. Her discharge plans were delayed due to snow and inability to arrange for home oxygen upon discharge. PHYSICAL EXAMINATION: VITAL SIGNS: Temperature is 98, blood pressure 142/80, pulse 82, and respirations 20. HEAD, EARS, NOSE AND THROAT: Within normal limits. NECK: Supple with no jugular vein distention. CHEST: Symmetrical. HEART: S1 and S2. No S3. Regular. Systolic murmur at the left sternal border. LUNGS: Few basal rhonchi. Diminished breath sounds. Few expiratory wheezes. GASTROINTESTINAL: Soft and nontender. No organomegaly. EXTREMITIES: 1+ pedal edema. DIAGNOSTIC DATA: There are no new labs this morning. ASSESSMENT: 1. Chronic obstructive pulmonary disease. 2. Chronic atrial fibrillation. 3. Cellulitis, lower extremities. 4. Diabetes. 5. Hypertension. PLAN: The patient was treated aggressively for pulmonary congestion with Lasix. Cardiology, Dr. Dougherty's note noted and appreciated. Her chronic obstructive pulmonary disease combined with congestive heart failure, atrial fibrillation is responsible for hypoxia. Arrangement will be made for home oxygen upon discharge. Her condition is stable and improving. Ric Guadalupe MD
[2017-04-28] MEDS: Clotrimazole/Betamethasone Cream(15 gm) TOP SCH ×2 (10:09→17:31)
[2017-04-28 12:02] VITALS: RESP 18
--- NOTE | 2017-04-28 12:06 | CP.PCM.PN ---
<Royce,Mark - Last Filed: 04/28/17 12:02> Subjective - Date & Time of Evaluation Date of Evaluation: 04/28/17 Time of Evaluation: 12:02 - Subjective Subjective: Podiatry Progress Note- Dr. Jones/Dr. Camacho 82 y.o female seen and evaluated in TCU for weeping bilateral venous stasis ulcerations with daughter at bedside. She is seen sitting in bed, in NAD, and AA0x3. Patient denies acute overnight events. Patient has no new pedal complaints and states that she tolerated her dressings well throughout the night. She says that her pain is well controlled at this time. Patient denies n/ v/sob/cp/chills/f or d Objective - Vital Signs/Intake and Output Vital Signs (last 24 hours): Temp Pulse Resp BP Pulse Ox 98.8 F 98 H 15 169/86 H 96 04/27/17 17:54 04/27/17 17:54 04/27/17 17:54 04/28/17 10:06 04/26/17 15:37 - Medications Medications: Current Medications Acarbose (Precose 50 Mg Tab) 100 mg PO 0800 [facility] Last Admin: 04/28/17 09:00 Dose: 100 mg Albuterol/Ipratropium (Duoneb 3 Mg/0.5 Mg (3 Ml) Ud) 3 ml IH [id number] PRN; Protocol PRN Reason: Shortness of Breath Apixaban (Eliquis) 2.5 mg PO BID [facility] PRN Reason: Protocol Last Admin: 04/28/17 10:06 Dose: 2.5 mg Aspirin (Aspirin Chewable) 81 mg PO 0800 [facility] PRN Reason: Protocol Last Admin: 04/28/17 09:00 Dose: 81 mg Atorvastatin Calcium (Lipitor) 20 mg PO HS [facility] PRN Reason: Protocol Last Admin: 04/27/17 22:01 Dose: 20 mg Betamethasone/Clotrimazole (Lotrisone) 0 gm TOP BID [facility] PRN Reason: Protocol Last Admin: 04/28/17 10:09 Dose: 1 applic Furosemide (Lasix) 40 mg IVP DAILY [facility] Last Admin: 04/28/17 10:06 Dose: 40 mg Glipizide (Glucotrol) 10 mg PO 0730,1700 [facility] PRN Reason: Protocol Last Admin: 04/28/17 09:00 Dose: 10 mg Insulin Human Regular (Humulin R Low) 0 units SC ACHS [facility]ERE[facility] PRN Reason: Protocol Last Admin: 04/28/17 06:57 Dose: Not Given Vitamin A (Vitamin A & D Oint Ud Foilpak) 1 ea TOP TID PRN; Protocol PRN Reason: Dry nasal passages - Labs Labs: 04/25/17 07:00 PT 13.8 SECONDS (9.4-12.5) H 04/19/17 06:30 INR 1.25 (0.93-1.08) H 04/19/17 06:30 - Constitutional Appears: Well, Non-toxic, No Acute Distress - Extremities Exam Additional comments: LE examination: Vasc: DP and PT nonpalpable secondary to edema, temperature gradient WNL, CFT < 3 seconds x10 digits, edema noted to the LE Ortho: mild pain with palpation to the LE, pain is improving Neuro: gross and protective sensation diminished bilaterally Derm: Multiple superficial ulcerations to the LE with wound base fibro-granular , serous drainage noted. Hyperkeratotic skin lesions noted to the LE. Erythema noted to entire LE, improving and stable. No purulence, no malodor, no tunneling , no proble to bone, no undermining noted. No other clinical signs of infection at this time - Neurological Exam Neurological Exam: Alert, Awake, Oriented x3 - Psychiatric Exam Psychiatric exam: Normal Affect, Normal Mood Assessment and Plan - Assessment and Plan (Free Text) Assessment: 82 y.o female with multiple venous stasis ulcerations and cellulitis secondary to LE edema, improving Plan: Patient seen and evaluated at bedside with attending Dr. Camacho Afebrile MITCHELL right: 0.71, MITCHELL left: 0.62 - no TEO bandaging or compression to be applied to b/l LE Continue clotrimazole/betamethasone topical Continue OT/PT Patient wounds dressed with RAFAL Kumar Podiatry will continue to follow while patient in house <Vahid Camacho - Last Filed: 04/28/17 15:51> Objective - Vital Signs/Intake and Output Vital Signs (last 24 hours): Temp Pulse Resp BP Pulse Ox 98 F 71 18 169/86 H 96 04/28/17 12:02 04/28/17 12:02 04/28/17 12:02 04/28/17 12:02 04/26/17 15:37 - Medications Medications: Current Medications Acarbose (Precose 50 Mg Tab) 100 mg PO 0800 [facility] Last Admin: 04/28/17 09:00 Dose: 100 mg Albuterol/Ipratropium (Duoneb 3 Mg/0.5 Mg (3 Ml) Ud) 3 ml IH [id number] PRN; Protocol PRN Reason: Shortness of Breath Apixaban (Eliquis) 2.5 mg PO BID [facility] PRN Reason: Protocol Last Admin: 04/28/17 10:06 Dose: 2.5 mg Aspirin (Aspirin Chewable) 81 mg PO 0800 [facility] PRN Reason: Protocol Last Admin: 04/28/17 09:00 Dose: 81 mg Atorvastatin Calcium (Lipitor) 20 mg PO HS [facility] PRN Reason: Protocol Last Admin: 04/27/17 22:01 Dose: 20 mg Betamethasone/Clotrimazole (Lotrisone) 0 gm TOP BID [facility] PRN Reason: Protocol Last Admin: 04/28/17 10:09 Dose: 1 applic Furosemide (Lasix) 40 mg IVP DAILY [facility] Last Admin: 04/28/17 10:06 Dose: 40 mg Glipizide (Glucotrol) 10 mg PO 0730,1700 [facility] PRN Reason: Protocol Last Admin: 04/28/17 09:00 Dose: 10 mg Insulin Human Regular (Humulin R Low) 0 units SC ACHS [facility] PRN Reason: Protocol Last Admin: 04/28/17 12:30 Dose: Not Given Vitamin A (Vitamin A & D Oint Ud Foilpak) 1 ea TOP TID PRN; Protocol PRN Reason: Dry nasal passages - Labs Labs: 04/25/17 07:00 PT 13.8 SECONDS (9.4-12.5) H 04/19/17 06:30 INR 1.25 (0.93-1.08) H 04/19/17 06:30 Attending/Attestation - Attestation I have personally seen and examined this patient.: Yes I have fully participated in the care of the patient.: Yes I have reviewed all pertinent clinical information, including history, physical exam and plan: Yes
[2017-04-28] MEDS ORDERED: Pneumococcal 23-Valent Vaccine IM ONE (15:38)
[2017-04-28 17:06] VITALS: BP 149/85; PULSE 86; TEMP 97.5; O2SAT 100
--- NOTE | 2017-04-28 18:50 | US ---
PROCEDURE: Lower extremity MITCHELL exam HISTORY: Peripheral vascular disease with pain and claudication. Previous smoker. Diabetes. PHYSICIAN(S): Arpan Swann MD. FINDINGS: The resting MITCHELL's are moderately abnormal but appear to be inaccurate and elevated when compared to the distal waveforms. Right, 0.71 and left, 0.66 The brachial systolic pressures are symmetric. The low thigh PVR waveforms are moderately blunted, greater on the left than the right. The pressures are relatively normal. This could represent aortoiliac disease. The calf PVR waveforms do not augment. This is consistent with bilateral SFA disease. The right calf PVR waveforms are moderately blunted and the left calf PVR waveforms are severely blunted. The ankle and metatarsal waveforms are severely blunted and symmetric bilaterally. This is consistent with bilateral tibial disease. IMPRESSION: 1. Inaccurate ABIs due to calcified vessels. 2. Aortoiliac disease 3. Bilateral SFA disease. 4. Bilateral tibial disease. 5. If clinically indicated, further imaging with CTA runoff, MRA runoff, or conventional arteriogram can be considered.
== END 2017-04-28 19:10 | disposition home or self-care (01) | DRG 308 ==
LOC: TRCU 17:46
PROVIDERS: ADMIT Internal Medicine Nephrology; ATTEND Internal Medicine Nephrology
PROC: F07Z9FZ Gait Training/Functional Ambulation Treatment using Assistive, Adaptive, Supportive or Protective Equipment (ICD-10-PCS; principal; 2017-04-18)
PROC: F07M6ZZ Therapeutic Exercise Treatment of Musculoskeletal System - Whole Body (ICD-10-PCS; 2017-04-18)
PROC: F08Z2ZZ Grooming/Personal Hygiene Treatment (ICD-10-PCS; 2017-04-18)
PROC: F08Z1ZZ Dressing Techniques Treatment (ICD-10-PCS; 2017-04-18)
PROC: 3E0234Z Introduction of Serum, Toxoid and Vaccine into Muscle, Percutaneous Approach (ICD-10-PCS; 2017-04-28)
DX: I48.2 Chronic atrial fibrillation (principal); I50.33 Acute on chronic diastolic (congestive) heart failure; E11.22 Type 2 diabetes mellitus with diabetic chronic kidney disease; E11.622 Type 2 diabetes mellitus with other skin ulcer; E87.5 Hyperkalemia; L03.115 Cellulitis of right lower limb; N39.0 Urinary tract infection, site not specified; I13.0 Hypertensive heart and chronic kidney disease with heart failure and stage 1 through stage 4 chronic kidney disease, or unspecified chronic kidney disease; L03.116 Cellulitis of left lower limb; L97.909 Non-pressure chronic ulcer of unspecified part of unspecified lower leg with unspecified severity; N18.9 Chronic kidney disease, unspecified; B95.2 Enterococcus as the cause of diseases classified elsewhere; E78.00 Pure hypercholesterolemia, unspecified; E78.5 Hyperlipidemia, unspecified; I08.1 Rheumatic disorders of both mitral and tricuspid valves; I27.20 Pulmonary hypertension, unspecified; I08.3 Combined rheumatic disorders of mitral, aortic and tricuspid valves; I83.009 Varicose veins of unspecified lower extremity with ulcer of unspecified site; J44.9 Chronic obstructive pulmonary disease, unspecified; K59.00 Constipation, unspecified; Z87.891 Personal history of nicotine dependence; Z90.49 Acquired absence of other specified parts of digestive tract; Z23 Encounter for immunization

== ENCOUNTER 2017-06-24 08:50 | Inpatient (IN) | payer MEDICARE, BC ==
[2017-06-24 09:02] VITALS: BMI 30.7
--- NOTE | 2017-06-24 09:15 | ED PDOC ---
Arrival/HPI - General Chief Complaint: Shortness Of Breath Time Seen by Provider: 06/24/17 08:54 Historian: Patient, Family (daughter) - History of Present Illness Narrative History of Present Illness (Text): 06/24/17 09:04 A 82 year old female, whose past medical history includes atrial fibrillation ( on Eliquis), diabetes, CHF, Pulmonary HTN, whom is accompanied by daughter and presents to the emergency department complaining of shortness of breath for 5 days. Patient's daughter reports for past 2 weeks, patient was not herself. Daughter noticed this morning shortness of breath became worse and noticed hands were swollen. States patient is currently on home oxygen (2 Liters) 97%. Patient's daughter notes patient has not experienced shortness of breath in the past. Patient denies any cough, chest pain, fever, nasal congestion, or any other complaints. Also, daughter mentions patient has been taken off hypertension medications since November. PMD: Dr. Omalley (seen by Dr. Pelaez) Time/Duration: < week (5 days) Symptom Onset: Sudden Symptom Course: Unchanged Past Medical History - Provider Review Nursing Documentation Reviewed: Yes - Infectious Disease Hx of Infectious Diseases: None - Tetanus Immunization Tetanus Immunization: Unknown - Reproductive Menopause: Yes - Cardiac Hx Cardiac Disorders: Yes Hx Congestive Heart Failure: Yes Hx Hypertension: Yes - Pulmonary Hx Respiratory Disorders: Yes (USED TO SMOKE CIGARETTES) Hx Chronic Obstructive Pulmonary Disease (COPD): Yes (O2 at 2l NC) - Neurological Hx Neurological Disorder: Yes (PHERIPHERAL NEUROPATHY) - HEENT Hx HEENT Disorder: Yes Hx Cataracts: Yes (bilateral sx 2012) - Renal Hx Renal Disorder: No - Endocrine/Metabolic Hx Endocrine Disorders: Yes Hx Diabetes Mellitus Type 2: Yes - Hematological/Oncological Hx Blood Disorders: No - Integumentary Hx Dermatological Disorder: Yes Other/Comment: 04-14-17 BILATERAL LE CELLULITIS. - Musculoskeletal/Rheumatological Hx Falls: Yes - Gastrointestinal Hx Gastrointestinal Disorders: Yes - Genitourinary/Gynecological Hx Genitourinary Disorders: No Hx Reproductive Disorders: No - Psychiatric Hx Depression: No Hx Emotional Abuse: No Hx Physical Abuse: No Hx Substance Use: No - Surgical History Hx Cholecystectomy: Yes ([address] hewitt) - Anesthesia Hx Anesthesia: Yes Hx Anesthesia Reactions: No Hx Malignant Hyperthermia: No - Suicidal Assessment Feels Threatened In Home Enviroment: No Family/Social History - Physician Review Nursing Documentation Reviewed: Yes Family/Social History: No Known Family HX Smoking Status: Former Smoker Hx Alcohol Use: No Hx Substance Use: No Hx Substance Use Treatment: No Allergies/Home Meds Allergies/Adverse Reactions: Allergies No Known Allergies Allergy (Verified 06/24/17 09:11) Home Medications: Home Meds Medication Instructions Recorded Confirmed Aspirin [Bernarda Aspirin [facility]] 81 mg PO DAILY 10/01/13 06/24/17 Atorvastatin Calcium [Lipitor] 80 mg PO DAILY 10/01/13 06/24/17 Omeprazole 20 mg PO DAILY 04/14/17 06/24/17 Bisoprolol [Zebeta] 5 mg PO DAILY 06/24/17 06/24/17 Ferrous Sulfate [Ferosul] 325 mg PO DAILY 06/24/17 06/24/17 Furosemide [Lasix] 20 mg PO DAILY 06/24/17 06/24/17 Insulin Glargine, Recombina 30 unit SC BRK 06/24/17 06/24/17 [Lantus] Magnesium Oxide [Magnesium] 400 mg PO DAILY 06/24/17 06/24/17 Review of Systems - Physician Review All systems were reviewed & negative as marked: Yes - Review of Systems Constitutional: absent: Fevers ENT: absent: Other (no nasal congestion) Respiratory: SOB. absent: Cough Cardiovascular: absent: Chest Pain Physical Exam Vital Signs Reviewed: Yes Vital Signs Temp Pulse Resp BP Pulse Ox 06/24/17 09:31 154/88 H 06/24/17 09:30 95 06/24/17 09:11 97.6 F 90 18 156/75 H 95 Temperature: Afebrile Blood Pressure: Hypertensive Pulse: Regular Respiratory Rate: Tachypneic Appearance: Positive for: Ill-Appearing, Uncomfortable Pain Distress: None Mental Status: Positive for: Alert and Oriented X 3 - Systems Exam Head: Present: Atraumatic, Normocephalic Pupils: Present: PERRL Extroacular Muscles: Present: EOMI Conjunctiva: Present: Normal Mouth: Present: Moist Mucous Membranes Neck: Present: Normal Range of Motion Respiratory/Chest: Present: Decreased Breath Sounds (right field) Cardiovascular: Present: Regular Rate and Rhythm, Normal S1, S2. No: Murmurs Abdomen: Present: Normal Bowel Sounds. No: Tenderness, Distention, Peritoneal Signs Back: Present: Normal Inspection Upper Extremity: Present: Normal Inspection. No: Cyanosis, Edema Lower Extremity: Present: Edema, Swelling (bilaterally), Erythema (bilaterally) , Other (bilateral chronic ulcers) Neurological: Present: GCS=15, CN II-XII Intact, Speech Normal Skin: No: Warm (no warmth to lower extremities) Psychiatric: Present: Alert, Oriented x 3, Normal Insight, Normal Concentration Medical Decision Making ED Course and Treatment: 06/24/17 09:07 Impression: 82 year old female with shortness of breath. Physical exam shows decreased breath sounds to right field, clear auscultation to left field; lower extremity edema, bilateral chronic ulcers, swelling, erythema; no warmth. Differential Diagnosis included but are not limited to: CHF Exacerbation vs. Pneumonia Plan: -- EKG -- Chest X-ray -- Labs -- Lasix -- Blood Culture -- Urine Culture -- Venous Blood Gas -- Urinalysis -- Nasal Cannula O2 -- Reassess and disposition Prior Visits: Notes and results from previous visits were reviewed. Patient was last seen in the emergency department on 04/14/2017 for leg swelling. Patient was admitted for telemetry observation. Progress Notes: EKG: Ordered, reviewed, and independently interpreted the EKG. Rate : 90 BPM Rhythm : Atrial Fibrillation Interpretation : Ventricular Block Comparison : No change to previous EKG from 04/14/2017. 06/24/17 10:16 Patient is AAOx3 but is slouched over and with mild to moderate tachypnea. She has decreased breathe sounds on the right and CXR consistent with CHF exaceration and Pneumonia. WBC elevated. Afebrile. Since she was hospitalized I will treat her with Cefepime and Vancomycin for Pneumonia possible hospital acquired. She was placed on BiPap 03/31. I discussed with daughter and patient end of life care. Patient is AAOx3 and has capacity to make decisions. The patient does not want to be intubated despite her current respiratory status. The daughter agrees that this has been her wishes for quite some time now. They made her father DNR/DNI before he passed as well. So they both took the time to discuss this decision. The patient was explained DNR/DNI status and she repeated it back to me. She will be placed as a DNR/DNI. A consult was placed for Anitra Lyles. Case was discussed with Dr. Pelaez who will admit under his service. Consults as per his request were placed for Dr. Hilliard and Dr. Jennings. - Critical Care Critical Care Minutes: 60 minutes - Lab Interpretations Lab Results: 06/24/17 09:25 06/24/17 09:25 Lab Results 06/24/17 09:45: pO2 64 H, VBG pH 7.21 L, VBG pCO2 88.0 H*, VBG HCO3 35.2 H, VBG Total CO2 37.9 H, VBG O2 Sat (Calc) 95.5 H, VBG Base Excess 4.2 H, VBG Potassium 4.4, Glucose 140 H, Lactate 1.2, FiO2 21.0, Sodium 133.0, Chloride 99.0, Venous Blood Potassium 4.4 06/24/17 09:25: Sodium 137, Potassium 4.3, Chloride 96 L, Carbon Dioxide 33, Anion Gap 12, BUN 34 H, Creatinine 1.6 H, Est GFR ( Amer) 37, Est GFR ( Non-Af Amer) 31, Random Glucose 137 H, Calcium 10.0, Total Bilirubin 0.4, AST 15 , ALT 29, Alkaline Phosphatase 156 H, Lactate Dehydrogenase 435, Total Creatine Kinase 23 L, Troponin I 0.03 D, NT-Pro-B Natriuret Pep 72750 H, Total Protein 6.2, Albumin 3.2, Globulin 3.1, Albumin/Globulin Ratio 1.0 L 06/24/17 09:25: PT 15.6 H, INR 1.35 H, APTT 32.6 06/24/17 09:25: WBC 15.9 H D, RBC 3.83, Hgb 10.8 L, Hct 36.4, MCV 95.0, MCH 28.2 , MCHC 29.7 L, RDW 15.4 H, Plt Count 287, MPV 11.6 H, Gran % 85.4 H, Lymph % ( Auto) 7.4 L, Sequoyah % (Auto) 6.8 H, Eos % (Auto) 0.3 L, Baso % (Auto) 0.1, Gran # 13.56 H, Lymph # (Auto) 1.2, Sequ[place]ah # (Auto) 1.1 H, Eos # (Auto) 0.0, Baso # (Auto ) 0.01 I have reviewed the lab results: Yes - RAD Interpretation Radiology Orders: 06/24/17 09:10 CHEST PORTABLE [RAD] Stat - Medication Orders Current Medication Orders: Cefepime HCl (Maxipime 2gm) 2 gm in 100 mls @ 100 mls/hr IVPB STAT STA PRN Reason: Protocol Stop: 06/24/17 10:44 Last Admin: 06/24/17 10:04 Dose: 100 mls/hr eMAR Start Stop Document 06/24/17 10:04 [facility] (Rec: 06/24/17 10:05 [facility] [id number]) Intravenous Solution Start Date 06/24/17 Start Time 10:05 End Date 06/24/17 End time 10:40 Total Infusion Time 35 Vancomycin HCl (Vancomycin 1gm) 1 gm in 250 mls @ 167 mls/hr IVPB STAT STA PRN Reason: Protocol Stop: 06/24/17 11:20 Discontinued Medications Furosemide (Lasix) 40 mg IVP STAT STA Stop: 06/24/17 09:08 Last Admin: 06/24/17 09:31 Dose: 40 mg MAR Blood Pressure Document 06/24/17 09:31 [facility] (Rec: 06/24/17 09:31 [facility] [id number]) Blood Pressure Blood Pressure (100/60-150/90) 154/88 IVP Administration Document 06/24/17 09:31 [facility] (Rec: 06/24/17 09:31 [facility] [id number]) Charges for Administration # of IVP Administrations 1 - Scribe Statement The provider has reviewed the documentation as recorded by the Yojana Barajas Provider Scribe Attestation: All medical record entries made by the Scribe were at my direction and personally dictated by me. I have reviewed the chart and agree that the record accurately reflects my personal performance of the history, physical exam, medical decision making, and the department course for this patient. I have also personally directed, reviewed, and agree with the discharge instructions and disposition. Disposition/Present on Arrival - Present on Arrival Any Indicators Present on Arrival: Yes History of DVT/PE: No History of Uncontrolled Diabetes: Yes Urinary Catheter: No History of Decub. Ulcer: Yes History Surgical Site Infection Following: None - Disposition Have Diagnosis and Disposition been Completed?: Yes Diagnosis: CHF (congestive heart failure), Leg edema, Pneumonia Disposition: HOSPITALIZED Disposition Time: 10:21 Patient Plan: Admission Condition: CRITICAL Discharge Instructions (ExitCare): Heart Failure (ED) Referrals: Avery Omalley MD [Primary Care Provider] - Follow up with primary Forms: [employer] (Lithuanian)
[2017-06-24 09:36] LABS: BASO # 0.01 K/mm3 (0.0-2.0); BASO % 0.1 % (0.0-3.0); EOS % 0.3 % (1.5-5.0); GRAN # 13.56 (1.4-6.5); GRAN % 85.4 % (50.0-68.0); HEMOGLOBIN 10.8 g/dL (12.0-16.0); LYMPH # 1.2 (1.2-3.4); LYMPH % 7.4 % (22.0-35.0); MEAN CORPUSCULAR HEMOGLOBIN 28.2 pg (25.0-35.0); MEAN CORPUSCULAR HGB CONC 29.7 g/dl (31.0-37.0); MEAN PLATELET VOLUME 11.6 fl (7.0-11.0); MONO # 1.1 (0.1-0.6); MONO % 6.8 % (1.0-6.0); RBC 3.83 10^6/uL (3.5-6.1); RED CELL DISTRIBUTION WIDTH 15.4 % (11.5-14.5); WHITE BLOOD COUNT 15.9 10^3/ul (4.5-11.0)
[2017-06-24 09:44] LABS: INR 1.35 (0.93-1.08); PROTHROMBIN TIME 15.6 SECONDS (9.4-12.5)
[2017-06-24 09:45] LABS: PARTIAL THROMBOPLASTIN TIME 32.6 Seconds (25.1-36.5)
[2017-06-24] MEDS ORDERED: Cefepime IV 2 gm in NS 2 GM/100 ML BAG IVPB STA (09:45)
[2017-06-24 09:48] LABS: ALBUMIN 3.2 g/dL (3.0-4.8)
[2017-06-24] MEDS ORDERED: Vancomycin 1gm in NS 250ml 1 GM/250 ML BAG IVPB STA (09:51)
[2017-06-24 09:55] LABS: VENOUS BLOOD GAS BASE EXCESS 4.2 mmol/L (0.0-2.0); VENOUS BLOOD GAS PO2 64 mm/Hg (30-55); VENOUS BLOOD PH 7.21 (7.32-7.43)
[2017-06-24 09:59] LABS: TROPONIN I 0.03 ng/mL
--- NOTE | 2017-06-24 10:14 | RAD ---
HISTORY: SOB; decreased right lung sounds COMPARISON: 04/14/2017 FINDINGS: LUNGS: Increasing right-sided infiltrate and effusion PLEURA: Increasing bilateral pleural effusions CARDIOVASCULAR: Normal. OSSEOUS STRUCTURES: No significant abnormalities. VISUALIZED UPPER ABDOMEN: Normal. OTHER FINDINGS: None. IMPRESSION: Increasing right-sided infiltrate and effusion. Increasing bilateral effusions
[2017-06-24 10:47] LABS: ARTERIAL BLOOD GAS HCO3 34.8 mmol/L (21-28); ARTERIAL BLOOD GAS HEMOGLOBIN 10.3 g/dL (11.7-17.4); ARTERIAL BLOOD GAS O2 CAPACITY 15.1 mL/dl (16-24); ARTERIAL BLOOD GAS O2 CONTENT 15.1 ML/dl (15-23); ARTERIAL BLOOD GAS O2 SAT 99.8 % (95-98); ARTERIAL BLOOD GAS PCO2 89 mm/Hg (35-45); ARTERIAL BLOOD GAS TCO2 37.5 mmol.L (22-28)
--- NOTE | 2017-06-24 11:53 | CARD ---
APPROVED REPORT EKG Measurement Heart [id number] <Conclusion> Atrial fibrillation Low voltage QRS LBBB.
--- NOTE | 2017-06-24 13:36 | CP.PCM.CON ---
History of Present Illness - History of Present Illness History of Present Illness: Palliative consult requested by Dr Cruz copied to Dr Gerardo Pelaez Reason: Goals of care 82 year old female with history of COPD who presented with worsening shortness of breath of 5 day duration. Daughter also report that patients hands were swollen. The patient is O2 dependant at home. The patient denies cough, chest pain, fever, congestion, abdominal pain, nausea, vomiting or diarrhea. Chest x ray consistent with CHF exacerbation and pneumonia. Labs; WBC 15.9,BUN, 34, Creat 1.6, Alk Phos 156, LDH 435, BNP 18167, positive,H Flu PMHx: COPD, A Fib on Eliquis, DM, CHF, cataracts, lower extremity cellulitis, peripheral neuropahty. Social History: Former smoker, no alcohol or drug use. Lives with daughter Erma Family History: Non contributory Advance Cre Planning:The patient does not have an Advance Directive.At her request she is DNR/DNI Review of Systems: per HPI, otherwise negative review Past Patient History - Infectious Disease Hx of Infectious Diseases: None - Tetanus Immunizations Tetanus Immunization: Unknown - Past Social History Smoking Status: Former Smoker - CARDIAC Hx Cardiac Disorders: Yes Hx Congestive Heart Failure: Yes Hx Hypertension: Yes - PULMONARY Hx Respiratory Disorders: Yes (USED TO SMOKE CIGARETTES) Hx Chronic Obstructive Pulmonary Disease (COPD): Yes (O2 at 2l NC) - NEUROLOGICAL Hx Neurological Disorder: Yes (PHERIPHERAL NEUROPATHY) - HEENT Hx HEENT Problems: Yes Hx Cataracts: Yes (bilateral sx 2012) - RENAL Hx Chronic Kidney Disease: No - ENDOCRINE/METABOLIC Hx Endocrine Disorders: Yes Hx Diabetes Mellitus Type 2: Yes - HEMATOLOGICAL/ONCOLOGICAL Hx Blood Disorders: No - INTEGUMENTARY Hx Dermatological Problems: Yes Other/Comment: 04-14-17 BILATERAL LE CELLULITIS. - MUSCULOSKELETAL/RHEUMATOLOGICAL Hx Falls: Yes - GASTROINTESTINAL Hx Gastrointestinal Disorders: Yes - GENITOURINARY/GYNECOLOGICAL Hx Genitourinary Disorders: No Hx Reproductive Disorders: No - PSYCHIATRIC Hx Depression: No Hx Emotional Abuse: No Hx Physical Abuse: No Hx Substance Use: No - SURGICAL HISTORY Hx Cholecystectomy: Yes ([address] hewitt) - ANESTHESIA Hx Anesthesia: Yes Hx Anesthesia Reactions: No Hx Malignant Hyperthermia: No Meds Allergies/Adverse Reactions: Allergies Allergy/AdvReac Type Severity Reaction Status Date / Time No Known Allergies Allergy Verified 06/24/17 09:11 - Medications Medications: Current Medications Acetaminophen (Tylenol 325mg Tab) 650 mg PO Q4H PRN PRN Reason: Fever >100.5 F Ondansetron HCl (Zofran Inj) 4 mg IVP Q4H PRN PRN Reason: Nausea/Vomiting Physical Exam - Constitutional Appears: Chronically Ill - Eye Exam Eye Exam: Normal appearance, PERRL - ENT Exam ENT Exam: Mucous Membranes Moist, Normal Oropharynx - Neck Exam Neck exam: Positive for: Normal Inspection - Respiratory Exam Respiratory Exam: Accessory Muscle Use, Decreased Breath Sounds, Rales - Cardiovascular Exam Cardiovascular Exam: Tachycardia, Irregular Rhythm, +S1, +S2 - GI/Abdominal Exam GI & Abdominal Exam: Normal Bowel Sounds, Soft - Extremities Exam Extremities exam: Positive for: pedal edema - Neurological Exam Additional comments: lethargic - Skin Skin Exam: Dry, Pallor, Warm - Additional Findings Additional findings: palliative performance scale rating 30 % Results - Vital Signs Recent Vital Signs: Last Vital Signs Temp 98 F 06/24/17 11:44 Pulse 72 06/24/17 11:44 Resp 18 06/24/17 11:44 BP 140/66 06/24/17 11:44 Pulse Ox 96 06/24/17 10:35 - Labs Result Diagrams: 06/24/17 09:25 06/24/17 09:25 Labs: Laboratory Results - last 24 hr 06/24/17 06/24/17 10:40 11:40 pCO2 89 H* pO2 378.0 H HCO3 34.8 H ABG pH 7.20 L ABG Total CO2 37.5 H ABG O2 Saturation 99.8 H ABG O2 Content 15.1 ABG Base Excess 4.7 H ABG Hemoglobin 10.3 L ABG Carboxyhemoglobin 1.7 H POC ABG HHb (Measured) 0.2 ABG Methemoglobin 0.9 ABG O2 Capacity 15.1 L Hgb O2 Saturation 97.1 FiO2 100.0 Influenza Typ A,B (EIA) Pos for influenza a H Assessment & Plan - Assessment and Plan (Free Text) Assessment: 82 year old female with history of A Fib, COPD, O2 dependency, HTN and DM who is admitted with sepsis, CHF exacerbation, pneumonia and H Influenza. The patient is lethargic, responsive.Denies pain. BIPAP in use Family at bedside. Daughter Erma and I met to discuss goals of care. Patient wants to be DNR/ DNI. Family states that patient has been this sick in the past and has rebounded. Encouraged to give treatment plan some time. If patient does not improve will revisit option for comfort care. Family is in agreement with this plan. Reassured psychosocial support provided. Time spent in goals of care and advance care planning discussion, 30 minutes Plan: Dr. Wing's note reviewed, continue treatment plan Advance care planning Goals of care
--- NOTE | 2017-06-24 15:36 | CP.PCM.CON ---
History of Present Illness - History of Present Illness History of Present Illness: 82 year old female with PMH of DM, HTN, pulmonary HTN, chronic CHF, atrial fibrillation on anticoagulation [place] [facility] [place] of worsening dyspnea on exertion and at rest for the past 1-2 days, associated with cough. There was no note of fever, no vomiting, no diarrhea, no incontinence, no convulsions, no loss of consciousness. CXR showed venous congestion but could not rule out pneumonia. In the ED, rapid flu is positive. Infectious Diseases consult is requested to further evaluate and manage. Review of Systems - Review of Systems All systems: reviewed and no additional remarkable complaints except (as per HPI ) Past Patient History - Infectious Disease Hx of Infectious Diseases: None - Tetanus Immunizations Tetanus Immunization: Unknown - Past Social History Smoking Status: Former Smoker - CARDIAC Hx Cardiac Disorders: Yes Hx Congestive Heart Failure: Yes Hx Hypertension: Yes - PULMONARY Hx Respiratory Disorders: Yes (USED TO SMOKE CIGARETTES) Hx Chronic Obstructive Pulmonary Disease (COPD): Yes (O2 at 2l NC) - NEUROLOGICAL Hx Neurological Disorder: Yes (PHERIPHERAL NEUROPATHY) - HEENT Hx HEENT Problems: Yes Hx Cataracts: Yes (bilateral sx 2012) - RENAL Hx Chronic Kidney Disease: No - ENDOCRINE/METABOLIC Hx Endocrine Disorders: Yes Hx Diabetes Mellitus Type 2: Yes - HEMATOLOGICAL/ONCOLOGICAL Hx Blood Disorders: No - INTEGUMENTARY Hx Dermatological Problems: Yes Other/Comment: 04-14-17 BILATERAL LE CELLULITIS. - MUSCULOSKELETAL/RHEUMATOLOGICAL Hx Falls: Yes - GASTROINTESTINAL Hx Gastrointestinal Disorders: Yes - GENITOURINARY/GYNECOLOGICAL Hx Genitourinary Disorders: No Hx Reproductive Disorders: No - PSYCHIATRIC Hx Depression: No Hx Emotional Abuse: No Hx Physical Abuse: No Hx Substance Use: No - SURGICAL HISTORY Hx Cholecystectomy: Yes ([address] hewitt) - ANESTHESIA Hx Anesthesia: Yes Hx Anesthesia Reactions: No Hx Malignant Hyperthermia: No Meds Allergies/Adverse Reactions: Allergies Allergy/AdvReac Type Severity Reaction Status Date / Time No Known Allergies Allergy Verified 06/24/17 09:11 - Medications Medications: Current Medications Cefepime HCl (Maxipime 2gm) 2 gm in 100 mls @ 100 mls/hr IVPB STAT STA PRN Reason: Protocol Stop: 06/24/17 10:44 Last Admin: 06/24/17 10:04 Dose: 100 mls/hr Vancomycin HCl (Vancomycin 1gm) 1 gm in 250 mls @ 167 mls/hr IVPB STAT STA PRN Reason: Protocol Stop: 06/24/17 11:20 Physical Exam - Constitutional Appears: Other (a little lethargic but arousable) - Head Exam Head Exam: NORMAL INSPECTION - ENT Exam ENT Exam: Mucous Membranes Moist - Neck Exam Neck exam: Negative for: Meningismus - Respiratory Exam Respiratory Exam: Decreased Breath Sounds - Cardiovascular Exam Cardiovascular Exam: +S1, +S2 - GI/Abdominal Exam GI & Abdominal Exam: Soft. absent: Tenderness Results - Vital Signs Recent Vital Signs: Last Vital Signs Temp 97.6 F 06/24/17 09:11 Pulse 90 06/24/17 09:11 Resp 18 06/24/17 09:11 BP 154/88 H 06/24/17 09:31 Pulse Ox 95 06/24/17 09:30 - Labs Result Diagrams: 06/24/17 09:25 06/24/17 09:25 Assessment & Plan - Assessment and Plan (Free Text) Plan: Assessment Systemic Inflammatory Response Syndrome, consider due to systemic viral illness with Influenza on top of acute CHF exacerbation DM HTN pulmonary HTN chronic CHF atrial fibrillation on anticoagulation Plan Started the patient on a dose of IV Vanco and cefepime pending blood cx, PCT; reviewed CXR started Tamiflu - rapid flu test is positive will monitor clinically
--- NOTE | 2017-06-24 18:32 | CP.PCM.CON ---
History of Present Illness - History of Present Illness History of Present Illness: Podiatry Consult Note - Dr. Jones 82 year old female patient PMHx of DM, HTN, pulmonary HTN, chronic CHF, atrial fibrillation (on Eliquis) seen and evaluated at bedside for bilateral LE chronic venous stasis with ulceration to right leg. Family present at bedside. Patient presented to ED this AM with worsening dyspnea; daughter endorses that patient "has not been herself" for the past 2 weeks. Per ED note, CXR consistent with CHF exacerbation and pneumonia. Patient found to be positive for influenza. Currently, patient complaining of general malaise. No complaints to bilateral LE. Denies N/V/D/C, admits to continued SOB. Review of Systems - Review of Systems All systems: reviewed and no additional remarkable complaints except (as per HPI ) Past Patient History - Infectious Disease Hx of Infectious Diseases: None - Tetanus Immunizations Tetanus Immunization: Unknown - Past Social History Smoking Status: Former Smoker - CARDIAC Hx Cardiac Disorders: Yes Hx Congestive Heart Failure: Yes Hx Hypertension: Yes - PULMONARY Hx Respiratory Disorders: Yes (USED TO SMOKE CIGARETTES) Hx Chronic Obstructive Pulmonary Disease (COPD): Yes (O2 at 2l NC) - NEUROLOGICAL Hx Neurological Disorder: Yes (PHERIPHERAL NEUROPATHY) - HEENT Hx HEENT Problems: Yes Hx Cataracts: Yes (bilateral sx 2012) - RENAL Hx Chronic Kidney Disease: No - ENDOCRINE/METABOLIC Hx Endocrine Disorders: Yes Hx Diabetes Mellitus Type 2: Yes - HEMATOLOGICAL/ONCOLOGICAL Hx Blood Disorders: No - INTEGUMENTARY Hx Dermatological Problems: Yes Other/Comment: 04-14-17 BILATERAL LE CELLULITIS. - MUSCULOSKELETAL/RHEUMATOLOGICAL Hx Falls: Yes - GASTROINTESTINAL Hx Gastrointestinal Disorders: Yes - GENITOURINARY/GYNECOLOGICAL Hx Genitourinary Disorders: No Hx Reproductive Disorders: No - PSYCHIATRIC Hx Depression: No Hx Emotional Abuse: No Hx Physical Abuse: No Hx Substance Use: No - SURGICAL HISTORY Hx Cholecystectomy: Yes ([address] hewitt) - ANESTHESIA Hx Anesthesia: Yes Hx Anesthesia Reactions: No Hx Malignant Hyperthermia: No Meds Allergies/Adverse Reactions: Allergies Allergy/AdvReac Type Severity Reaction Status Date / Time No Known Allergies Allergy Verified 06/24/17 09:11 - Medications Medications: Current Medications Acetaminophen (Tylenol 325mg Tab) 650 mg PO Q4H PRN PRN Reason: Fever >100.5 F Apixaban (Eliquis) 2.5 mg PO BID [facility] PRN Reason: Protocol Aspirin (Aspirin Chewable) 81 mg PO DAILY [facility] Last Admin: 06/24/17 17:56 Dose: Not Given Atorvastatin Calcium (Lipitor) 80 mg PO HS [facility] Ferrous Sulfate (Feosol) 324 mg PO DAILY [facility] Cefepime HCl (Maxipime 2gm) 2 gm in 100 mls @ 100 mls/hr IVPB Q12 [facility] PRN Reason: Protocol Stop: 06/29/17 22:01 Insulin Detemir (Levemir) 15 unit SC ACBHS [facility] Insulin Human Regular (Humulin R Med) 0 units SC ACHS [facility] PRN Reason: Protocol Non-Formulary Medication (Bisoprolol [Zebeta]) 5 mg PO DAILY [facility] Ondansetron HCl (Zofran Inj) 4 mg IVP Q4H PRN PRN Reason: Nausea/Vomiting Oseltamivir Phosphate (Tamiflu Susp) 30 mg PO BID [facility] PRN Reason: Protocol Physical Exam - Constitutional Appears: Well, Non-toxic, No Acute Distress - Extremities Exam Additional comments: Vasc: DP and PT nonpalpable secondary to edema b/l. CFT <3 seconds to all digits x10. Temperature graduent warm to warm. +1 pitting edema to bilateral lower extremities. Neuro: Gross sensation diminished bilaterally. Derm: Superficial ulceration noted to anterior aspect of right leg - noted to have a mixed fibrogranular base and mild erythema periwound; mild serosanguinous drainage noted; no purulence, fluctuance, malodor, undermining, noted. Venous stasis dermatitis present bilaterally. Ulceration noted to posterior aspect of left heel. Ortho: No pain on palpation bilateral lower extremities. - Neurological Exam Neurological exam: Alert, Oriented x3 - Psychiatric Exam Psychiatric exam: Flat Affect Results - Vital Signs Recent Vital Signs: Last Vital Signs Temp 98 F 06/24/17 11:44 Pulse 101 H 06/24/17 14:00 Resp 20 06/24/17 14:00 BP 140/66 06/24/17 11:44 Pulse Ox 96 06/24/17 10:35 - Labs Result Diagrams: 06/24/17 09:25 06/24/17 09:25 Labs: Laboratory Results - last 24 hr 06/24/17 06/24/17 06/24/17 10:40 11:40 12:14 pCO2 89 H* pO2 378.0 H HCO3 34.8 H ABG pH 7.20 L ABG Total CO2 37.5 H ABG O2 Saturation 99.8 H ABG O2 Content 15.1 ABG Base Excess 4.7 H ABG Hemoglobin 10.3 L ABG Carboxyhemoglobin 1.7 H POC ABG HHb (Measured) 0.2 ABG Methemoglobin 0.9 ABG O2 Capacity 15.1 L Hgb O2 Saturation 97.1 FiO2 100.0 Procalcitonin 0.78 H Influenza Typ A,B (EIA) Pos for influenza a H Assessment & Plan - Assessment and Plan (Free Text) Assessment: 82F with venous stasis ulceration right leg and bilateral lower extremity edema Plan: Patient seen and evaluated with attending, Dr. Jones Afebrile, WC 15.9 Continue abx per ID - Cefepime Continue local wound care -Optifoam to left heel -DSD to right leg Wounds appear to be stable at this time Multipodus boots ordered - to be worn at all times while in bed Podiatry will continue to follow while patient in house
[2017-06-24] MEDS: Oseltamivir 6 MG/ML PO SCH (18:39)
--- NOTE | 2017-06-24 20:50 | CP.PCM.CON ---
History of Present Illness - History of Present Illness History of Present Illness: General Surgery consult for Dr. Arndt Consulted for: left vulva boil, sacral decubitus ulcers Patient is an 82F admitted for SIRS, influenza, and CHF exacerbation who was found to have a vulvar boil and sacral decubitus ulcers. Patient states that she has had the boil for many months and that it slowly got bigger and redder until it started draining thick yellow fluid a few days ago. Patient denies any fevers, chills, or any other boils or area of drainage. Patient denies having this before. When asked about her ulcers on her sacrum and gluteus patient states that they are "just a rash" and refuses to let me examine them due to her fatigue and difficulty breathing. Nursing states that the wounds are stage 2 without obvious signs of infection per her assessment and that optifoam were applied. Explained to patient why we wanted to see the ulcers and that it is important that infection is ruled out, but patient refused. Will try to examine patient in the AM. Patient's other complaints are back pain and shortness of breath. Patient also has chronic venous stasis wounds that are being treated by podiatry--patient requested not to have them examined. PMH: COPD, CHF, Pulmonary hypertension, DM, HTN, afib on eliquis, BL chronic venous stasis ulcer on right leg PSH: cholecysectomy 2013 All: NKDA Family: non-contributory Review of Systems - Review of Systems All systems: reviewed and no additional remarkable complaints except (as per HPI ) Past Patient History - Infectious Disease Hx of Infectious Diseases: None - Tetanus Immunizations Tetanus Immunization: Unknown - Past Medical History & Family History Past Medical History?: Yes Past Family History: Reviewed and not pertinent - Past Social History Smoking Status: Former Smoker Home Situation {Lives}: With Family - CARDIAC Hx Cardiac Disorders: Yes Hx Congestive Heart Failure: Yes Hx Hypertension: Yes - PULMONARY Hx Respiratory Disorders: Yes (USED TO SMOKE CIGARETTES) Hx Chronic Obstructive Pulmonary Disease (COPD): Yes (O2 at 2l NC) - NEUROLOGICAL Hx Neurological Disorder: Yes (PHERIPHERAL NEUROPATHY) - HEENT Hx HEENT Problems: Yes Hx Cataracts: Yes (bilateral sx 2012) - RENAL Hx Chronic Kidney Disease: No - ENDOCRINE/METABOLIC Hx Endocrine Disorders: Yes Hx Diabetes Mellitus Type 2: Yes - HEMATOLOGICAL/ONCOLOGICAL Hx Blood Disorders: No - INTEGUMENTARY Hx Dermatological Problems: Yes Other/Comment: BILATERAL LE CELLULITIS, chronic venous stasis ulcers - MUSCULOSKELETAL/RHEUMATOLOGICAL Hx Falls: Yes - GASTROINTESTINAL Hx Gastrointestinal Disorders: Yes - GENITOURINARY/GYNECOLOGICAL Hx Genitourinary Disorders: No Hx Reproductive Disorders: No - PSYCHIATRIC Hx Depression: No Hx Emotional Abuse: No Hx Physical Abuse: No Hx Substance Use: No - SURGICAL HISTORY Hx Cholecystectomy: Yes (2013) - ANESTHESIA Hx Anesthesia: Yes Hx Anesthesia Reactions: No Hx Malignant Hyperthermia: No Meds Allergies/Adverse Reactions: Allergies Allergy/AdvReac Type Severity Reaction Status Date / Time No Known Allergies Allergy Verified 06/24/17 09:11 - Medications Medications: Current Medications Acetaminophen (Tylenol 325mg Tab) 650 mg PO Q4H PRN PRN Reason: Fever >100.5 F Apixaban (Eliquis) 2.5 mg PO BID [facility] PRN Reason: Protocol Last Admin: 06/24/17 18:39 Dose: 2.5 mg Aspirin (Aspirin Chewable) 81 mg PO DAILY [facility] Last Admin: 06/24/17 17:56 Dose: Not Given Atorvastatin Calcium (Lipitor) 80 mg PO HS [facility] Ferrous Sulfate (Feosol) 324 mg PO DAILY [facility] Cefepime HCl (Maxipime 2gm) 2 gm in 100 mls @ 100 mls/hr IVPB Q12 [facility] PRN Reason: Protocol Stop: 06/29/17 22:01 Insulin Detemir (Levemir) 15 unit SC ACBHS [facility] Insulin Human Regular (Humulin R Med) 0 units SC ACHS [facility] PRN Reason: Protocol Non-Formulary Medication (Bisoprolol [Zebeta]) 5 mg PO DAILY [facility] Ondansetron HCl (Zofran Inj) 4 mg IVP Q4H PRN PRN Reason: Nausea/Vomiting Oseltamivir Phosphate (Tamiflu Susp) 30 mg PO BID [facility] PRN Reason: Protocol Last Admin: 06/24/17 18:39 Dose: 30 mg Pantoprazole Sodium (Protonix Ec Tab) 40 mg PO 0600 [facility] Physical Exam - Constitutional Appears: In Acute Distress (mild respiratoy distress), Unkempt, Chronically Ill - Head Exam Head Exam: ATRAUMATIC, NORMOCEPHALIC - Eye Exam Eye Exam: Normal appearance. absent: Conjunctival injection, Scleral icterus - ENT Exam ENT Exam: Mucous Membranes Moist, Normal Oropharynx - Respiratory Exam Respiratory Exam: Accessory Muscle Use, Respiratory Distress (increased respiratory effort), NORMAL BREATHING PATTERN - Cardiovascular Exam Cardiovascular Exam: Tachycardia, Irregular Rhythm (afib with RVR) - GI/Abdominal Exam Additional comments: deferred - Rectal Exam Rectal Exam: Deferred - Exam External exam: Lesions (left anterior labia moderate swelling with approximatly 5mm skin opening draining thick yellow mucus. A hard mass is palpated subcutaneously but no surrounding erythema or induration. Serous fluid is expressible) - Extremities Exam Extremities exam: Positive for: pedal pulses present Additional comments: BL lower leg swelling, erythema, and chronic skin changes. R lower leg covered in a bandage C/D/I. Left heel with optifoam dressing C/D/I. - Back Exam Additional comments: deferred - Neurological Exam Neurological exam: Alert, Oriented x3 - Psychiatric Exam Psychiatric exam: Agitated, Normal Affect - Skin Additional comments: areas of maceration under the breast skin folds and the groin folds between pannus BL. Patient deferred sacral ulcer examination Results - Vital Signs Recent Vital Signs: Last Vital Signs Temp 98.2 F 06/24/17 18:00 Pulse 92 H 06/24/17 18:00 Resp 20 06/24/17 18:00 BP 136/85 06/24/17 18:00 Pulse Ox 96 06/24/17 10:35 - Labs Result Diagrams: 06/24/17 09:25 06/24/17 09:25 Labs: Laboratory Results - last 24 hr 06/24/17 06/24/17 06/24/17 10:40 11:40 12:14 pCO2 89 H* pO2 378.0 H HCO3 34.8 H ABG pH 7.20 L ABG Total CO2 37.5 H ABG O2 Saturation 99.8 H ABG O2 Content 15.1 ABG Base Excess 4.7 H ABG Hemoglobin 10.3 L ABG Carboxyhemoglobin 1.7 H POC ABG HHb (Measured) 0.2 ABG Methemoglobin 0.9 ABG O2 Capacity 15.1 L Hgb O2 Saturation 97.1 FiO2 100.0 Procalcitonin 0.78 H Influenza Typ A,B (EIA) Pos for influenza a H Assessment & Plan - Assessment and Plan (Free Text) Assessment: 82F with sacral decubitus ulcers and groin lesion concerning for sebaceous cyst vs bartholin gland cyst vs abscess vs. lymph node origin Plan: -F/U wound culture -Continue antibiotics per ID -Apply barrier cream to intertiginous areas of skin maceration -apply optifoam to sacral wounds -Turn Q2 -Air mattress -lower extremity wound treatment per podiatry -attempt to more thoroughly examine wounds when patient is permitting -No emergent surgical treatment at this time. Patient's groin lesion does not appear to be the source of patient's elevated WBC in light of he influenza. Patient also refusing any surgical intervention at this time and is DNR/DNI. Recommend closely monitoring patient's vitals and will discuss further with patient and patient's family. Recommendations may change based on patient's clinical course Further recs per Dr. Hair Voss, PGY2
[2017-06-24] MEDS: Insulin Detemir 100 units/ml Vial (Levemir) SC SCH (21:45)
[2017-06-24] MEDS: Insulin Reg-MEDIUM-Coverage SC SCH (21:45)
[2017-06-24] MEDS: Cefepime IV 2 gm in NS 2 GM/100 ML BAG IVPB SCH (21:48)
[2017-06-24] MEDS: Pantoprazole 40 mg EC Tab PO SCH (21:48)
[2017-06-25] MEDS: Pantoprazole 40 mg EC Tab PO SCH (05:51)
[2017-06-25 06:21] LABS: HEMOGLOBIN 10.9 g/dL (12.0-16.0); MEAN CELL VOLUME 95.7 fl (80.0-105.0); MEAN CORPUSCULAR HEMOGLOBIN 27.8 pg (25.0-35.0); MEAN CORPUSCULAR HGB CONC 29.1 g/dl (31.0-37.0); MEAN PLATELET VOLUME 12.2 fl (7.0-11.0); RBC 3.92 10^6/uL (3.5-6.1); RED CELL DISTRIBUTION WIDTH 15.6 % (11.5-14.5); WHITE BLOOD COUNT 15.2 10^3/ul (4.5-11.0)
[2017-06-25 07:09] LABS: ALBUMIN 3.2 g/dL (3.0-4.8); CALCIUM 10.1 mg/dL (8.4-10.5); MAGNESIUM 1.5 mg/dL (1.7-2.2)
--- NOTE | 2017-06-25 07:27 | CP.PCM.PN ---
Subjective - Date & Time of Evaluation Date of Evaluation: 06/25/17 Time of Evaluation: 07:24 - Subjective Subjective: Surgery Pt seen. Pt refused physical exam by surgical team this am. Denies F/C/N/V/D/ CP. Reports some SOB and weakness. Objective - Vital Signs/Intake and Output Vital Signs (last 24 hours): Temp Pulse Resp BP Pulse Ox 98.2 F 90 20 110/68 93 L 06/25/17 06:00 06/25/17 06:00 06/25/17 06:00 06/25/17 06:00 06/25/17 06:00 Intake and Output: 06/25/17 06/25/17 06:59 18:59 Intake Total 540 Balance 540 - Medications Medications: Current Medications Acetaminophen (Tylenol 325mg Tab) 650 mg PO Q4H PRN PRN Reason: Fever >100.5 F Apixaban (Eliquis) 2.5 mg PO BID [facility] PRN Reason: Protocol Last Admin: 06/24/17 18:39 Dose: 2.5 mg Aspirin (Aspirin Chewable) 81 mg PO DAILY [facility] Last Admin: 06/24/17 17:56 Dose: Not Given Atorvastatin Calcium (Lipitor) 80 mg PO HS [facility] Last Admin: 06/24/17 21:48 Dose: 80 mg Ferrous Sulfate (Feosol) 324 mg PO DAILY [facility] Cefepime HCl (Maxipime 2gm) 2 gm in 100 mls @ 100 mls/hr IVPB Q12 [facility] PRN Reason: Protocol Stop: 06/29/17 22:01 Last Admin: 06/24/17 21:48 Dose: 100 mls/hr Insulin Detemir (Levemir) 15 unit SC ACBHS [facility] Last Admin: 06/24/17 21:45 Dose: Not Given Insulin Human Regular (Humulin R Med) 0 units SC ACHS [facility] PRN Reason: Protocol Last Admin: 06/24/17 21:45 Dose: Not Given Non-Formulary Medication (Bisoprolol [Zebeta]) 5 mg PO DAILY [facility] Ondansetron HCl (Zofran Inj) 4 mg IVP Q4H PRN PRN Reason: Nausea/Vomiting Oseltamivir Phosphate (Tamiflu Susp) 30 mg PO BID [facility] PRN Reason: Protocol Last Admin: 06/24/17 18:39 Dose: 30 mg Pantoprazole Sodium (Protonix Ec Tab) 40 mg PO 0600 [facility] Last Admin: 06/25/17 05:51 Dose: 40 mg - Labs Labs: 06/25/17 05:30 06/25/17 05:30 PT 15.6 SECONDS (9.4-12.5) H 06/24/17 09:25 INR 1.35 (0.93-1.08) H 06/24/17 09:25 APTT 32.6 Seconds (25.1-36.5) 06/24/17 09:25 - Constitutional Appears: Non-toxic, Unkempt, Chronically Ill - Head Exam Head Exam: ATRAUMATIC, NORMAL INSPECTION, NORMOCEPHALIC - Eye Exam Eye Exam: EOMI, Normal appearance, PERRL Pupil Exam: NORMAL ACCOMODATION, PERRL - ENT Exam ENT Exam: Mucous Membranes Moist, Normal Exam - Neck Exam Neck Exam: Full ROM, Normal Inspection. absent: Lymphadenopathy - Respiratory Exam Respiratory Exam: absent: Respiratory Distress - GI/Abdominal Exam GI & Abdominal Exam: absent: Distended - Extremities Exam Extremities Exam: absent: Full ROM Additional comments: L LE kerlix dressing in place. b/l LE discoloration. Dry - Back Exam Back Exam: absent: Full ROM, NORMAL INSPECTION Additional comments: 2cm sebacious cyst with punctate. Erythema on shoulder. x2 - Neurological Exam Neurological Exam: Alert, Awake, CN II-XII Intact, Oriented x3. absent: Normal Gait - Skin Skin Exam: Dry, Erythema, Warm Assessment and Plan - Assessment and Plan (Free Text) Assessment: 82F with sacral decubitus ulcers and groin lesion concerning for sebaceous cyst vs bartholin gland cyst vs abscess vs. lymph node origin Plan: -Pt refusing physical exam. Will reevaluate with Dr. Arndt -F/U wound culture -Continue antibiotics per ID -Apply barrier cream to intertiginous areas of skin maceration -apply optifoam to sacral wounds -Turn Q2 -Air mattress -lower extremity wound treatment per podiatry -Patient also refusing any surgical intervention at this time and is DNR/DNI. Recommend closely monitoring patient's vitals and will discuss further with patient and patient's family. Recommendations may change based on patient's clinical course Will DW Dr. Arndt
[2017-06-25] MEDS: Insulin Reg-MEDIUM-Coverage SC SCH ×4 (07:51→22:00)
[2017-06-25] MEDS: Insulin Detemir 100 units/ml Vial (Levemir) SC SCH ×2 (07:52→22:37)
[2017-06-25] MEDS ORDERED: INSULIN GLARGINE RECOMBINA SC SCH (08:00)
[2017-06-25] MEDS ORDERED: Magnesium Sulfate 2 GM in Sodium Chloride 0.9% 100 ML IV ONE (08:15)
[2017-06-25 09:02] LABS: ARTERIAL BLOOD GAS HCO3 33.2 mmol/L (21-28); ARTERIAL BLOOD GAS HEMOGLOBIN 10.2 g/dL (11.7-17.4); ARTERIAL BLOOD GAS O2 CAPACITY 13.9 mL/dl (16-24); ARTERIAL BLOOD GAS O2 CONTENT 13.2 ML/dl (15-23); ARTERIAL BLOOD GAS O2 SAT 94.8 % (95-98); ARTERIAL BLOOD GAS PCO2 74 mm/Hg (35-45); ARTERIAL BLOOD GAS PH 7.26 (7.35-7.45); ARTERIAL BLOOD GAS TCO2 35.5 mmol.L (22-28)
[2017-06-25] MEDS: Cefepime IV 2 gm in NS 2 GM/100 ML BAG IVPB SCH ×2 (09:02→22:38)
[2017-06-25] MEDS: Oseltamivir 6 MG/ML PO SCH ×2 (09:02→17:36)
[2017-06-25] MEDS ORDERED: Non Formulary Medication (Ferrous Sulfate [Ferosul] 325 MG) PO SCH (10:00)
--- NOTE | 2017-06-25 10:45 | CP.PCM.PN ---
Subjective - Date & Time of Evaluation Date of Evaluation: 06/25/17 Time of Evaluation: 09:10 - Subjective Subjective: Still with some shortness of breath at rest, no fevers overnight, no diarrhea. Objective - Vital Signs/Intake and Output Vital Signs (last 24 hours): Temp Pulse Resp BP Pulse Ox 98.2 F 90 20 110/68 93 L 06/25/17 06:00 06/25/17 06:00 06/25/17 06:00 06/25/17 06:00 06/25/17 06:00 Intake and Output: 06/25/17 06/25/17 06:59 18:59 Intake Total 540 Balance 540 - Medications Medications: Current Medications Acetaminophen (Tylenol 325mg Tab) 650 mg PO Q4H PRN PRN Reason: Fever >100.5 F Apixaban (Eliquis) 2.5 mg PO BID [facility] PRN Reason: Protocol Last Admin: 06/24/17 18:39 Dose: 2.5 mg Aspirin (Aspirin Chewable) 81 mg PO DAILY [facility] Last Admin: 06/24/17 17:56 Dose: Not Given Atorvastatin Calcium (Lipitor) 80 mg PO HS [facility] Last Admin: 06/24/17 21:48 Dose: 80 mg Ferrous Sulfate (Feosol) 324 mg PO DAILY [facility] Cefepime HCl (Maxipime 2gm) 2 gm in 100 mls @ 100 mls/hr IVPB Q12 [facility] PRN Reason: Protocol Stop: 06/29/17 22:01 Last Admin: 06/24/17 21:48 Dose: 100 mls/hr Magnesium Sulfate 2 gm/ Sodium (Chloride) 104 mls @ 102 mls/hr IV ONCE ONE Stop: 06/25/17 09:16 Doxycycline Hyclate 100 mg/ (Sodium Chloride) 100 mls @ 100 mls/hr IVPB Q12 [facility] PRN Reason: Protocol Insulin Detemir (Levemir) 15 unit SC ACBHS [facility] Last Admin: 06/25/17 07:52 Dose: Not Given Insulin Human Regular (Humulin R Med) 0 units SC ACHS [facility] PRN Reason: Protocol Last Admin: 06/25/17 07:51 Dose: Not Given Bisoprolol [Zebeta] (5 Mg (Home Med)) 5 mg PO DAILY [facility] Ondansetron HCl (Zofran Inj) 4 mg IVP Q4H PRN PRN Reason: Nausea/Vomiting Oseltamivir Phosphate (Tamiflu Susp) 30 mg PO BID [facility] PRN Reason: Protocol Last Admin: 06/24/17 18:39 Dose: 30 mg Pantoprazole Sodium (Protonix Ec Tab) 40 mg PO 0600 [facility] Last Admin: 06/25/17 05:51 Dose: 40 mg - Labs Labs: 06/25/17 05:30 06/25/17 05:30 PT 15.6 SECONDS (9.4-12.5) H 06/24/17 09:25 INR 1.35 (0.93-1.08) H 06/24/17 09:25 APTT 32.6 Seconds (25.1-36.5) 06/24/17 09:25 - Constitutional Appears: Chronically Ill - Head Exam Head Exam: NORMAL INSPECTION - Neck Exam Neck Exam: absent: Meningismus - Respiratory Exam Respiratory Exam: Decreased Breath Sounds - Cardiovascular Exam Cardiovascular Exam: +S1, +S2 - GI/Abdominal Exam GI & Abdominal Exam: Soft. absent: Tenderness Assessment and Plan - Assessment and Plan (Free Text) Plan: Assessment Systemic Inflammatory Response Syndrome, consider due to systemic viral illness with Influenza on top of acute CHF exacerbation, with probable HCAP DM HTN pulmonary HTN chronic CHF atrial fibrillation on anticoagulation Plan continue cefepime and doxycycline; PCT is 0.78; reviewed CXR - complete up to 7 days of therapy continue Tamiflu - rapid flu test is positive - complete 5 days of therapy will continue to monitor clinically
--- NOTE | 2017-06-25 11:41 | CON ---
DATE: 06/25/2017 PULMONARY CONSULTATION REASON FOR CONSULTATION: Pneumonia. REFERRING PHYSICIAN: Dr. Pelaez. HISTORY OF PRESENT ILLNESS: The patient is an 82-year-old chronically ill female, on home oxygen, with past medical history significant for atrial fibrillation (on Eliquis), chronic obstructive pulmonary disease, diabetes mellitus, congestive heart failure, pulmonary hypertension, who presents to [facility] with a 5-day history of worsening shortness of breath at rest, dyspnea on exertion, and cough. I did discuss the history with the daughter and the patient at length. There is no history of sputum production. There is no history of chest pain, coughing up of blood, or chest pain - made worse with deep respirations. There is no history of temperatures, chills or infectious exposure. There is no history of night sweats, weight loss or appetite change prior to the above events. No history of calf pains. No history of syncope or diaphoresis. No history of recent travel or trauma. REVIEW OF SYSTEMS: No history of nausea, vomiting, or diarrhea. No acute urinary symptoms. No new musculoskeletal complaints. Rest of the review of systems is negative. ALLERGIES: NO KNOWN ALLERGIES. SOCIAL HISTORY: Positive for former tobacco usage. No alcohol. FAMILY HISTORY: No inheritable diseases. HOME MEDICATIONS: Include ferrous sulfate, aspirin, Lantus, Lasix, Eliquis, omeprazole and Lipitor. PHYSICAL EXAMINATION GENERAL: The patient appears comfortable at rest. She is not short of breath. She does appear very weak. VITAL SIGNS: Temperature is 98.2, pulse is 90, respirations 18/20, blood pressure 110/68. Oxygen saturation on nasal cannula is 93%. HEENT: Normocephalic and atraumatic. Positive JVD. CARDIOVASCULAR: Systolic ejection murmur at the lower left sternal border. Positive S3 gallop. LUNGS: Decreased breath sounds at the bases with crackles. Minimal bilateral rhonchi. No wheezing. EXTREMITIES: Positive for edema. No cyanosis, no clubbing. Calves are nontender to palpation. GI: Abdomen is soft, nontender and nondistended. Bowel sounds are positive. SKIN: Positive erythema both lower extremities. Positive sacral decubitus. No rashes. NEUROLOGIC: Limited at the present time. PERTINENT LABORATORY DATA: Chest x-ray was done yesterday and reviewed. There is moderately severe pulmonary edema noted. There is also an increase in the bilateral pleural effusions - compared to the previous film of 04/14/2017. There is also a probable underlying right lower lobe infiltrate. Complete metabolic profile: Chloride 97, BUN 38, creatinine 1.7, alkaline phosphatase 148. Rest of the metabolic profiles within normal limits. Initial B-type natriuretic peptide - 40154. Troponin done yesterday 0.78. CBC: White count 15.2, hemoglobin 10.9, hematocrit 37.5, platelets of 246,000. Arterial blood gas was done on 100% oxygen yesterday. Results are pH 7.20, pCO2 of 89, pO2 of 378. IMPRESSION: 1. Respiratory failure. 2. Acute congestive heart failure. 3. Chronic obstructive pulmonary disease. 4. Rule out pneumonia - right lower lobe. 5. Pulmonary hypertension. 6. Renal insufficiency. PLAN: I did discuss the case with the patient and daughter at length. I have also reviewed the chart at length. The patient presents to [facility] with a 5-day history of worsening pulmonary symptoms. I did review the chest x-ray--as above. The chest x-ray is clearly worse - compared to the previous film. More specifically, the most recent chest x-ray shows a significant increase in pulmonary vascular congestion with increasing bilateral pleural effusions. I have also reviewed the laboratory data. A significant rise in the B-type natriuretic peptide is noted. I will continue the patient on intravenous Lasix for now. On physical exam, there is minimal bronchospasm noted. I will start the patient on Xopenex nebulizer treatments this morning. Again, the chest x-ray does show a probable/possible underlying right lower lobe infiltrate. The procalcitonin done was slightly elevated. Merchant cultures have been ordered and will be analyzed when feasible. Input by Infectious Disease (Dr. Frost) is noted. Lastly, I have also reviewed the arterial blood gas. A significant respiratory acidosis is present. Oxygen saturation on nasal cannula is currently 93%. I will repeat the arterial blood gas this morning - to better assess the need for BiPAP. Repeat a.m. labs are also pending. The patient does feel a little better this morning and is clinically improved - compared to her initial hospital status. However, she remains critically ill with very guarded/poor prognosis. I will discuss the above with Dr. Pelaez this morning. Thank you very much for this pulmonary consultation. Los Jose MD RODOLFO
--- NOTE | 2017-06-25 11:54 | CP.PCM.PN ---
Subjective - Date & Time of Evaluation Date of Evaluation: 06/25/17 Time of Evaluation: 10:30 - Subjective Subjective: Podiatry Progress Note - Dr. Jones 82 year old female patient PMHx of DM, HTN, pulmonary HTN, chronic CHF, atrial fibrillation (on Eliquis) seen and evaluated at bedside for bilateral LE chronic venous stasis with ulceration to right leg. Family present at bedside. No complaints to bilateral LE. Patient daughter reports seeing improvements in the LE compared to yesterday. Denies N/V/D/C, admits to continued SOB. Objective - Vital Signs/Intake and Output Vital Signs (last 24 hours): Temp Pulse Resp BP Pulse Ox 97.2 F L 96 H 18 141/71 93 L 06/25/17 11:32 06/25/17 11:32 06/25/17 11:32 06/25/17 11:32 06/25/17 06:00 Intake and Output: 06/25/17 06/25/17 06:59 18:59 Intake Total 540 Balance 540 - Medications Medications: Current Medications Acetaminophen (Tylenol 325mg Tab) 650 mg PO Q4H PRN PRN Reason: Fever >100.5 F Apixaban (Eliquis) 2.5 mg PO BID [facility] PRN Reason: Protocol Last Admin: 06/25/17 09:00 Dose: 2.5 mg Aspirin (Aspirin Chewable) 81 mg PO DAILY [facility] Last Admin: 06/25/17 09:00 Dose: 81 mg Atorvastatin Calcium (Lipitor) 80 mg PO HS [facility] Last Admin: 06/24/17 21:48 Dose: 80 mg Ferrous Sulfate (Feosol) 324 mg PO DAILY [facility] Last Admin: 06/25/17 09:00 Dose: 324 mg Cefepime HCl (Maxipime 2gm) 2 gm in 100 mls @ 100 mls/hr IVPB Q12 [facility] PRN Reason: Protocol Stop: 06/29/17 22:01 Last Admin: 06/25/17 09:02 Dose: 100 mls/hr Doxycycline Hyclate 100 mg/ (Sodium Chloride) 100 mls @ 100 mls/hr IVPB Q12 [facility] PRN Reason: Protocol Last Admin: 06/25/17 09:03 Dose: 100 mls/hr Insulin Detemir (Levemir) 15 unit SC ACBHS [facility] Last Admin: 06/25/17 07:52 Dose: Not Given Insulin Human Regular (Humulin R Med) 0 units SC ACHS [facility] PRN Reason: Protocol Last Admin: 06/25/17 07:51 Dose: Not Given Levalbuterol HCl (Xopenex) 1.25 mg IH [id number] [facility] Bisoprolol [Zebeta] (5 Mg (Home Med)) 5 mg PO DAILY [facility] Ondansetron HCl (Zofran Inj) 4 mg IVP Q4H PRN PRN Reason: Nausea/Vomiting Oseltamivir Phosphate (Tamiflu Susp) 30 mg PO BID [facility] PRN Reason: Protocol Last Admin: 06/25/17 09:02 Dose: 30 mg Pantoprazole Sodium (Protonix Ec Tab) 40 mg PO 0600 [facility] Last Admin: 06/25/17 05:51 Dose: 40 mg - Labs Labs: 06/25/17 05:30 06/25/17 05:30 PT 15.6 SECONDS (9.4-12.5) H 06/24/17 09:25 INR 1.35 (0.93-1.08) H 06/24/17 09:25 APTT 32.6 Seconds (25.1-36.5) 06/24/17 09:25 - Constitutional Appears: Well, Non-toxic, No Acute Distress - Extremities Exam Additional comments: Vasc: DP and PT nonpalpable secondary to edema b/l. CFT <3 seconds to all digits x10. Temperature graduent warm to warm. +1 pitting edema to bilateral lower extremities. Neuro: Gross sensation diminished bilaterally. Derm: Superficial ulceration noted to anterior aspect of right leg - noted to have a mixed fibrogranular base and mild erythema periwound; mild serosanguinous drainage noted; no purulence, fluctuance, malodor, undermining, noted. Venous stasis dermatitis present bilaterally. Ulceration noted to posterior aspect of left heel. Drainage has improved. Less drainage noted today. Ortho: No pain on palpation bilateral lower extremities. - Neurological Exam Neurological Exam: Alert, Awake, Oriented x3 - Psychiatric Exam Psychiatric exam: Normal Affect, Normal Mood Assessment and Plan - Assessment and Plan (Free Text) Assessment: 82F with venous stasis ulceration right leg and bilateral lower extremity edema Plan: Patient seen and evaluated with attending, Dr. Jones Afebrile, WBC 15.2 trended down from 15.9 on 06/24/17 Continue abx per ID - Cefepime Will leave dressing off for LE to air off bilaterally Wounds appear to be stable at this time Multipodus boots ordered - to be worn at all times while in bed Podiatry will continue to follow while patient in house
[2017-06-25] MEDS: BISOPROLOL 5 MG PO SCH (12:30)
[2017-06-25] MEDS: Levalbuterol 1.25 MG/3 ML Inhal Soln UD IH SCH ×2 (14:12→19:49)
--- NOTE | 2017-06-25 19:50 | HP ---
CHIEF COMPLAINT AND HISTORY OF PRESENT ILLNESS: This is an 82-year-old female who is coming in to the hospital with difficulty breathing. The patient is complaining of shortness of breath. She does have a history of COPD. She was having some swelling in the hands according to the daughter. The patient does have O2 and is O2 dependent. She has diabetes as well. The patient has been declining. She was found to have influenza and was admitted to the hospital for further evaluation. The patient has no complaints of any headaches or dizziness. No nausea. She has no abdominal pain or chest pain. REVIEW OF SYSTEMS: Her review of symptoms is limited because of underlying illness, possible dementia. ALLERGIES: NO KNOWN DRUG ALLERGIES. HOME MEDICATIONS: Aspirin, Lipitor, omeprazole, bisoprolol, ferrous sulfate, Lasix, insulin glargine, magnesium oxide. PAST MEDICAL HISTORY: Hypertension, dyslipidemia; CHF, unknown type; COPD, carpal tunnel syndrome. PAST SURGICAL HISTORY: Cholecystectomy, bilateral cataract surgery. FAMILY HISTORY: Noncontributory. SOCIAL HISTORY: She is a former smoker. She denies alcohol or drugs. PHYSICAL EXAMINATION: VITAL SIGNS: Temperature is 97.5, pulse of 98, blood pressure is 125/69, respirations 21, O2 saturation 91%. GENERAL: The patient lying in bed, uncomfortable, and in no acute distress. HEENT: Atraumatic and normocephalic. Anicteric sclerae. Moist mucosa. [place] conjunctivae. No oral lesions. NECK: No JVD, anterior and posterior adenopathy, thyromegaly, or bruits. CARDIOVASCULAR: S1 and S2 regular. No murmur, rubs, or gallop. LUNGS: Clear to auscultation bilaterally. No wheezes, rales, or rhonchi. ABDOMEN: Bowel sounds are positive. Soft, nontender and nondistended. No hepatosplenomegaly. No rebound and no guarding. EXTREMITIES: Lower extremity, there is 1+ edema. Left heel has an Optifoam. There is no drainage. BACK: There is also a small cyst that is in the upper back that is about 1 cm diameter. NEUROLOGIC: No facial asymmetry. Tongue is midline. No uvula deviation. Power is 5/5 upper extremity and lower extremity. Sensation intact in upper extremity and lower extremity. PSYCHIATRIC: She is awake, alert and oriented x3. No anxiety or depression. She has normal affect. GENITOURINARY: There is a boil in the left labial area. It is hard. There is no erythema. There is some drainage. VASCULAR: 2+ pulses in the carotid pulses and pedal pulses. SKIN: No erythema or nodules. SPINE: Shows normal curvature. LABORATORY DATA: White count 15.9, hemoglobin is 10.8 with a platelet count of 287. INR is 1.35. An ABG done shows a pH of 7.2, with a pCO2 of 89. The patient has a chemistry that shows sodium is 137, creatinine is 1.7, magnesium is 1.5. There is a serology, procalcitonin is 0.78. Influenza is positive. ASSESSMENT: 1. Viral syndrome secondary to influenza. 2. Hypercapnic respiratory failure. 3. Sepsis. 4. Sacral decubitus ulcer. 5. Diabetes type 2. 6. Hypertension. 7. Atrial fibrillation, on anticoagulation. 8. Chronic kidney disease, stage III. 9. Pulmonary hypertension. 10. Left labial boil. 11. Do not resuscitate/do not intubate. PLAN: The patient is admitted to the hospital. She has flu. She is being treated with oseltamivir 30 mg p.o. b.i.d. The patient is on Zofran as needed, she is on Protonix daily. She is going to be on Lipitor for dyslipidemia. She is on insulin sliding scale. She is going to continue with Eliquis for her anticoagulation for atrial fibrillation. She is on aspirin. She is going to be seen by Dr. Arndt for the lesion that she has in her labial area. The patient is on iron for anemia. I will also get pulmonary evaluation. The patient is DNR/DNI. I will speak to the patient's daughter to give her an update. Darvin Pelaez MD
[2017-06-26] MEDS: Levalbuterol 1.25 MG/3 ML Inhal Soln UD IH SCH ×4 (02:12→19:10)
[2017-06-26] MEDS: Pantoprazole 40 mg EC Tab PO SCH (05:30)
[2017-06-26] MEDS: Insulin Reg-MEDIUM-Coverage SC SCH ×4 (07:30→22:44)
--- NOTE | 2017-06-26 07:49 | CON ---
DATE: HISTORY OF PRESENT ILLNESS: Viki Irby was seen in the presence, I believe, of a daughter or a niece. Very difficult to examine because of her shortness of breath, noting her severe CO2 retention 89 and 74. The sacrum seen very quickly, it seems to be a stage 2 minor excoriations in a moist environment. The patient will be dressed and placed on an air mattress. Her left labial groin is examined with great difficulty. This is an abscess. There was a drain, some necrotic fat is manually debrided. It will be dressed, but no acute intervention is necessary or possible. We will follow peripherally. The note by the residents reviewed and accepted. Satish Arndt MD
[2017-06-26 08:27] LABS: ARTERIAL BLOOD GAS HCO3 31.4 mmol/L (21-28); ARTERIAL BLOOD GAS HEMOGLOBIN 10.3 g/dL (11.7-17.4); ARTERIAL BLOOD GAS O2 CAPACITY 14.2 mL/dl (16-24); ARTERIAL BLOOD GAS O2 CONTENT 13.5 ML/dl (15-23); ARTERIAL BLOOD GAS O2 SAT 95.2 % (95-98); ARTERIAL BLOOD GAS PH 7.23 (7.35-7.45); ARTERIAL BLOOD GAS TCO2 33.7 mmol.L (22-28)
[2017-06-26 08:29] LABS: ARTERIAL BLOOD GAS PCO2 75 mm/Hg (35-45)
--- NOTE | 2017-06-26 08:46 | PN ---
DATE: 06/26/2017 PULMONARY NOTE SUBJECTIVE: The patient appears comfortable this morning. She is not short of breath at rest. PHYSICAL EXAMINATION VITAL SIGNS: (Last noted in the computer): Temperature is 97.6, pulse 94, respirations 19, blood pressure 146/78. Oxygen saturation on nasal cannula is 96%. HEENT: Normocephalic, atraumatic. Positive JVD. CARDIOVASCULAR: Systolic ejection murmur at the lower left sternal border. Positive S3 gallop. LUNGS: Decreased breath sounds at the bases with crackles. Less rhonchi. No wheezing. EXTREMITIES: Less edema. No cyanosis, no clubbing. Calves are nontender to palpation. GI: Abdomen is soft, nontender and nondistended. Bowel sounds are positive. SKIN: Less erythema - both lower extremities. No rashes. NEUROLOGIC: Limited at the present time. IMPRESSION: 1. Respiratory failure. 2. Acute congestive heart failure. 3. Chronic obstructive pulmonary disease. 4. Rule out pneumonia - right lower lobe. 5. Pulmonary hypertension. 6. Renal insufficiency. PLAN: The patient appears comfortable this morning. She is not short of breath at rest. She does state to feeling much better overall. I did discuss the case with the night nurse at length. The night nurse stated that the patient had a good night, but is refusing her BiPAP. I did discuss this issue with her at length this morning. She still continues to refuse BiPAP. The patient's daughter usually visits her in the morning, and hopefully, I can meet with the daughter and discuss this issue. On physical exam, there is less bronchospasm noted. In addition, the alveolar-arterial gradient is also less. There was an arterial blood gas done yesterday-- on nasal cannula. It remained with a respiratory acidosis, but less severe. I have also ordered another arterial blood gas this morning - to better define her acid-base disturbance/ventilation. The patient remains on antibiotic therapy - as per Infectious Disease. There are no temperatures noted. Repeat a.m. labs are pending. I will also continue with the diuretics for now. Cardiology evaluation is pending. Clinical status of the patient is certainly improved - compared to the initial presentation. However, again, the future status/prognosis for this patient remains very guarded at best. I will discuss the above with Dr. Pealez. [place] MD [facility] # [id number] RODOLFO
[2017-06-26] MEDS: BISOPROLOL 5 MG PO SCH (09:29)
[2017-06-26] MEDS: Insulin Detemir 100 units/ml Vial (Levemir) SC SCH ×2 (09:31→22:44)
[2017-06-26] MEDS: Cefepime IV 2 gm in NS 2 GM/100 ML BAG IVPB SCH (09:31)
--- NOTE | 2017-06-26 09:47 | PN ---
DATE: SUBJECTIVE: The patient has no complaints of any chest pain, any shortness of breath. She is a bit drowsy. PHYSICAL EXAMINATION VITAL SIGNS: Temperature is 97.6, pulse of 94, blood pressure of 146/78, respirations 19. GENERAL: The patient is lying in bed, flat, comfortable. HEENT: No oral lesion. Anicteric sclerae. Moist mucosa. NECK: No JVD, adenopathy, or thyromegaly. CARDIOVASCULAR: S1 and S2, regular. No murmurs, rubs, or gallops. LUNGS: Clear to auscultation bilaterally. No wheeze, rales, or rhonchi. ABDOMEN: Bowel sounds are positive. Soft, nontender and nondistended. EXTREMITIES: No cyanosis, clubbing or edema. ASSESSMENT 1. Viral syndrome secondary to flu. 2. Hypercapnic respiratory failure. 3. Sepsis. 4. Sacral decubitus ulcer. 5. Diabetes type 2. 6. Hypertension. 7. Atrial fibrillation, on anticoagulation. 8. Chronic kidney disease, stage III. 9. Pulmonary hypertension. 10. Left labial boil. 11. Venous stasis ulcer of the right leg. 12. Do not resuscitate/do not intubate. PLAN: The patient is currently in a sedation. She has an elevated white count, creatinine. She does have CKD stage III, possibly IV. The patient is currently on Tamiflu. She is going to continue with Eliquis. She is on antibiotics of doxycycline and being followed by Infectious Disease. She is also receiving Xopenex for breathing, she is on BiPAP. The patient is on a heart-healthy diet. Overall prognosis is poor. I did speak to the patient's family yesterday to give them an update. Darvin Pelaez MD
[2017-06-26 09:56] LABS: GRAN # 13.23 (1.4-6.5); GRAN % 90.4 % (50.0-68.0); HEMOGLOBIN 10.1 g/dL (12.0-16.0); LYMPH # 0.6 (1.2-3.4); LYMPH % 4.3 % (22.0-35.0); MEAN CORPUSCULAR HEMOGLOBIN 27.7 pg (25.0-35.0); MEAN CORPUSCULAR HGB CONC 29.4 g/dl (31.0-37.0); MEAN PLATELET VOLUME 11.1 fl (7.0-11.0); MONO # 0.8 (0.1-0.6); MONO % 5.3 % (1.0-6.0); PLATELET COUNT 284 10^3/uL (120.0-450.0); RBC 3.65 10^6/uL (3.5-6.1); RED CELL DISTRIBUTION WIDTH 15.4 % (11.5-14.5); WHITE BLOOD COUNT 14.6 10^3/ul (4.5-11.0)
[2017-06-26 09:59] LABS: ALB/GLOB RATIO 0.9 (1.1-1.8); ALBUMIN 2.9 g/dL (3.0-4.8)
[2017-06-26] MEDS: Oseltamivir 6 MG/ML PO SCH ×2 (10:13→17:09)
--- NOTE | 2017-06-26 10:53 | CP.PCM.PN ---
Subjective - Date & Time of Evaluation Date of Evaluation: 06/26/17 Time of Evaluation: 08:00 - Subjective Subjective: Patient seen and examined this morning. Appears lethargic. Pus actively draining from perineal site. Iodoform applied. Objective - Vital Signs/Intake and Output Vital Signs (last 24 hours): Temp Pulse Resp BP Pulse Ox 97.9 F 94 H 21 141/63 93 L 06/26/17 06:00 06/26/17 06:00 06/26/17 06:00 06/26/17 06:48 06/26/17 06:00 Intake and Output: 06/26/17 06/26/17 06:59 18:59 Intake Total 320 Output Total 200 Balance 120 - Medications Medications: Current Medications Acetaminophen (Tylenol 325mg Tab) 650 mg PO Q4H PRN PRN Reason: Fever >100.5 F Apixaban (Eliquis) 2.5 mg PO BID [facility] PRN Reason: Protocol Last Admin: 06/26/17 09:30 Dose: 2.5 mg Aspirin (Aspirin Chewable) 81 mg PO DAILY [facility] Last Admin: 06/26/17 09:29 Dose: 81 mg Atorvastatin Calcium (Lipitor) 80 mg PO HS [facility] Last Admin: 06/25/17 22:38 Dose: 80 mg Ferrous Sulfate (Feosol) 324 mg PO DAILY [facility] Last Admin: 06/26/17 09:30 Dose: 324 mg Furosemide (Lasix) 40 mg IVP Q24H [facility] Last Admin: 06/26/17 06:48 Dose: 40 mg Cefepime HCl (Maxipime 2gm) 2 gm in 100 mls @ 100 mls/hr IVPB Q12 [facility] PRN Reason: Protocol Stop: 06/29/17 22:01 Last Admin: 06/26/17 09:31 Dose: 100 mls/hr Doxycycline Hyclate 100 mg/ (Sodium Chloride) 100 mls @ 100 mls/hr IVPB Q12 [facility] PRN Reason: Protocol Last Admin: 06/26/17 09:32 Dose: 100 mls/hr Insulin Detemir (Levemir) 15 unit SC [facility] Last Admin: 06/26/17 09:31 Dose: Not Given Insulin Human Regular (Humulin R Med) 0 units SC [facility] PRN Reason: Protocol Last Admin: 06/26/17 07:30 Dose: Not Given Levalbuterol HCl (Xopenex) 1.25 mg IH [id number] [facility] Last Admin: 06/26/17 07:55 Dose: 1.25 mg Bisoprolol [Zebeta] (5 Mg (Home Med)) 5 mg PO DAILY [facility] Last Admin: 06/26/17 09:29 Dose: Not Given Ondansetron HCl (Zofran Inj) 4 mg IVP Q4H PRN PRN Reason: Nausea/Vomiting Oseltamivir Phosphate (Tamiflu Susp) 30 mg PO BID [facility] PRN Reason: Protocol Last Admin: 06/26/17 10:13 Dose: 30 mg Pantoprazole Sodium (Protonix Ec Tab) 40 mg PO 0600 [facility] Last Admin: 06/26/17 05:30 Dose: 40 mg - Labs Labs: 06/26/17 09:30 06/26/17 09:30 PT 15.6 SECONDS (9.4-12.5) H 06/24/17 09:25 INR 1.35 (0.93-1.08) H 06/24/17 09:25 APTT 32.6 Seconds (25.1-36.5) 06/24/17 09:25 - Constitutional Appears: Other (lethargic) - Head Exam Head Exam: ATRAUMATIC - Respiratory Exam Respiratory Exam: NORMAL BREATHING PATTERN. absent: Accessory Muscle Use - Cardiovascular Exam Cardiovascular Exam: +S1, +S2 - GI/Abdominal Exam GI & Abdominal Exam: Soft - Neurological Exam Neurological Exam: Alert, Awake, Oriented x3 - Psychiatric Exam Psychiatric exam: Normal Mood - Skin Skin Exam: Dry, Normal Color, Warm Assessment and Plan - Assessment and Plan (Free Text) Assessment: 82F with sacral decubitus ulcers and groin lesion concerning for sebaceous cyst vs bartholin gland cyst vs abscess vs. lymph node origin -Continue antibiotics per ID -Apply barrier cream to areas of skin maceration -apply optifoam to sacral wounds -Turn Q2H -Air mattress -lower extremity wound treatment per podiatry -Patient also refusing any surgical intervention at this time and is DNR/DNI. Recommend closely monitoring patient's vitals and will discuss further with patient and patient's family. -Will sign off, please reconsult as needed Kelli PGY-2 D/w Dr. Arndt
[2017-06-26 10:54] LABS: ANISOCYTOSIS SLIGHT; LYMPHOCYTE 7 % (22.0-35.0); MONOCYTE 1 % (1.0-6.0); NEUTROPHIL 92 % (50.0-70.0); PLATELET ESTIMATE NORMAL (NORMAL)
--- NOTE | 2017-06-26 12:11 | CP.PCM.PN ---
<Brian Chaparro - Last Filed: 06/26/17 12:00> Subjective - Date & Time of Evaluation Date of Evaluation: 06/26/17 Time of Evaluation: 10:55 - Subjective Subjective: Podiatry Progress Note - Dr. Camacho 82 year old female patient PMHx of DM, HTN, pulmonary HTN, chronic CHF, atrial fibrillation (on Eliquis) seen and evaluated at bedside for bilateral LE chronic venous stasis with ulceration to right leg-stable. Daughter is at bedside during visitation. Patient has BiPap on during visitation and appears more lethargic compared to yesterday. Objective - Vital Signs/Intake and Output Vital Signs (last 24 hours): Temp Pulse Resp BP Pulse Ox 97.9 F 54 L 22 147/54 L 93 L 06/26/17 06:00 06/26/17 11:49 06/26/17 07:30 06/26/17 07:30 06/26/17 07:30 Intake and Output: 06/26/17 06/26/17 06:59 18:59 Intake Total 320 Output Total 200 Balance 120 - Medications Medications: Current Medications Acetaminophen (Tylenol 325mg Tab) 650 mg PO Q4H PRN PRN Reason: Fever >100.5 F Apixaban (Eliquis) 2.5 mg PO BID [facility] PRN Reason: Protocol Last Admin: 06/26/17 09:30 Dose: 2.5 mg Aspirin (Aspirin Chewable) 81 mg PO DAILY [facility] Last Admin: 06/26/17 09:29 Dose: 81 mg Atorvastatin Calcium (Lipitor) 80 mg PO HS [facility] Last Admin: 06/25/17 22:38 Dose: 80 mg Ferrous Sulfate (Feosol) 324 mg PO DAILY [facility] Last Admin: 06/26/17 09:30 Dose: 324 mg Furosemide (Lasix) 40 mg IVP Q24H [facility] Last Admin: 06/26/17 06:48 Dose: 40 mg Cefepime HCl (Maxipime 2gm) 2 gm in 100 mls @ 100 mls/hr IVPB Q12 [facility] PRN Reason: Protocol Stop: 06/29/17 22:01 Last Admin: 06/26/17 09:31 Dose: 100 mls/hr Doxycycline Hyclate 100 mg/ (Sodium Chloride) 100 mls @ 100 mls/hr IVPB Q12 [facility] PRN Reason: Protocol Last Admin: 06/26/17 09:32 Dose: 100 mls/hr Insulin Detemir (Levemir) 15 unit SC ACBHS [facility] Last Admin: 06/26/17 09:31 Dose: Not Given Insulin Human Regular (Humulin R Med) 0 units SC ACHS [facility] PRN Reason: Protocol Last Admin: 06/26/17 11:34 Dose: Not Given Levalbuterol HCl (Xopenex) 1.25 mg IH [id number] [facility] Last Admin: 06/26/17 07:55 Dose: 1.25 mg Bisoprolol [Zebeta] (5 Mg (Home Med)) 5 mg PO DAILY [facility] Last Admin: 06/26/17 09:29 Dose: Not Given Ondansetron HCl (Zofran Inj) 4 mg IVP Q4H PRN PRN Reason: Nausea/Vomiting Oseltamivir Phosphate (Tamiflu Susp) 30 mg PO BID [facility] PRN Reason: Protocol Last Admin: 06/26/17 10:13 Dose: 30 mg Pantoprazole Sodium (Protonix Ec Tab) 40 mg PO 0600 [facility] Last Admin: 06/26/17 05:30 Dose: 40 mg - Labs Labs: 06/26/17 09:30 06/26/17 09:30 PT 15.6 SECONDS (9.4-12.5) H 06/24/17 09:25 INR 1.35 (0.93-1.08) H 06/24/17 09:25 APTT 32.6 Seconds (25.1-36.5) 06/24/17 09:25 - Constitutional Appears: Well, Non-toxic, No Acute Distress - Extremities Exam Additional comments: Vasc: DP and PT nonpalpable secondary to edema b/l. CFT <3 seconds to all digits x10. Temperature graduent warm to warm. +1 pitting edema to bilateral lower extremities. Neuro: Gross sensation diminished bilaterally. Derm: Superficial ulceration noted to anterior aspect of right leg - noted to have a mixed fibrogranular base and mild erythema periwound; mild serosanguinous drainage noted; no purulence, fluctuance, malodor, undermining, noted. Venous stasis dermatitis present bilaterally. Ulceration noted to posterior aspect of left heel. Drainage has improved. Less drainage noted today. Ortho: No pain on palpation bilateral lower extremities. - Neurological Exam Neurological Exam: Alert, Awake, Oriented x3 - Psychiatric Exam Psychiatric exam: Normal Affect, Normal Mood Assessment and Plan - Assessment and Plan (Free Text) Assessment: 82F with venous stasis ulceration right leg and bilateral lower extremity edema- stable Plan: Patient seen and evaluated with attending, Dr. Jones Afebrile, WBC 14.6 trending down Continue abx per ID - Cefepime Clean ulceration and LE with saline solution Will leave dressing off for LE to air off bilaterally Wounds appear to be stable at this time C/w Multipodus boots- to be worn at all times while in bed Podiatry will continue to follow while patient in house <Vahid Camacho - Last Filed: 06/26/17 16:47> Objective - Vital Signs/Intake and Output Vital Signs (last 24 hours): Temp Pulse Resp BP Pulse Ox 97.6 F 93 H 18 147/114 H 98 06/26/17 12:00 06/26/17 16:37 06/26/17 16:37 06/26/17 16:37 06/26/17 16:37 Intake and Output: 06/26/17 06/26/17 06:59 18:59 Intake Total 320 200 Output Total 200 200 Balance 120 0 - Medications Medications: Current Medications Acetaminophen (Tylenol 325mg Tab) 650 mg PO Q4H PRN PRN Reason: Fever >100.5 F Apixaban (Eliquis) 2.5 mg PO BID [facility] PRN Reason: Protocol Last Admin: 06/26/17 09:30 Dose: 2.5 mg Aspirin (Aspirin Chewable) 81 mg PO DAILY [facility] Last Admin: 06/26/17 09:29 Dose: 81 mg Atorvastatin Calcium (Lipitor) 80 mg PO HS [facility] Last Admin: 06/25/17 22:38 Dose: 80 mg Ferrous Sulfate (Feosol) 324 mg PO DAILY [facility] Last Admin: 06/26/17 09:30 Dose: 324 mg Furosemide (Lasix) 40 mg IVP Q24H [facility] Last Admin: 06/26/17 06:48 Dose: 40 mg Doxycycline Hyclate 100 mg/ (Sodium Chloride) 100 mls @ 100 mls/hr IVPB Q12 [facility] PRN Reason: Protocol Last Admin: 06/26/17 09:32 Dose: 100 mls/hr Cefepime HCl (Maxipime 2gm) 2 gm in 100 mls @ 100 mls/hr IVPB DAILY [facility] PRN Reason: Protocol Stop: 06/29/17 10:01 Insulin Detemir (Levemir) 15 unit SC ACBHS [facility] Last Admin: 06/26/17 09:31 Dose: Not Given Insulin Human Regular (Humulin R Med) 0 units SC ACHS [facility] PRN Reason: Protocol Last Admin: 06/26/17 11:34 Dose: Not Given Levalbuterol HCl (Xopenex) 1.25 mg IH [id number] [facility] Last Admin: 06/26/17 14:15 Dose: 1.25 mg Bisoprolol [Zebeta] (5 Mg (Home Med)) 5 mg PO DAILY [facility] Last Admin: 06/26/17 09:29 Dose: Not Given Ondansetron HCl (Zofran Inj) 4 mg IVP Q4H PRN PRN Reason: Nausea/Vomiting Oseltamivir Phosphate (Tamiflu Susp) 30 mg PO BID [facility] PRN Reason: Protocol Last Admin: 06/26/17 10:13 Dose: 30 mg Pantoprazole Sodium (Protonix Ec Tab) 40 mg PO 0600 [facility] Last Admin: 06/26/17 05:30 Dose: 40 mg - Labs Labs: 06/26/17 09:30 06/26/17 09:30 PT 15.6 SECONDS (9.4-12.5) H 06/24/17 09:25 INR 1.35 (0.93-1.08) H 06/24/17 09:25 APTT 32.6 Seconds (25.1-36.5) 06/24/17 09:25 Attending/Attestation - Attestation I have personally seen and examined this patient.: Yes I have fully participated in the care of the patient.: Yes I have reviewed all pertinent clinical information, including history, physical exam and plan: Yes
--- NOTE | 2017-06-26 17:44 | CP.PCM.PN ---
Subjective - Date & Time of Evaluation Date of Evaluation: 06/26/17 Time of Evaluation: 09:40 - Subjective Subjective: Breathing a little better today, no fevers overnight. Objective - Vital Signs/Intake and Output Vital Signs (last 24 hours): Temp Pulse Resp BP Pulse Ox 98.2 F 88 20 110/68 93 L 06/25/17 06:00 06/25/17 08:55 06/25/17 06:00 06/25/17 09:05 06/25/17 06:00 Intake and Output: 06/25/17 06/25/17 06:59 18:59 Intake Total 540 Balance 540 - Medications Medications: Current Medications Acetaminophen (Tylenol 325mg Tab) 650 mg PO Q4H PRN PRN Reason: Fever >100.5 F Apixaban (Eliquis) 2.5 mg PO BID [facility] PRN Reason: Protocol Last Admin: 06/25/17 09:00 Dose: 2.5 mg Aspirin (Aspirin Chewable) 81 mg PO DAILY [facility] Last Admin: 06/25/17 09:00 Dose: 81 mg Atorvastatin Calcium (Lipitor) 80 mg PO HS [facility] Last Admin: 06/24/17 21:48 Dose: 80 mg Ferrous Sulfate (Feosol) 324 mg PO DAILY [facility] Last Admin: 06/25/17 09:00 Dose: 324 mg Cefepime HCl (Maxipime 2gm) 2 gm in 100 mls @ 100 mls/hr IVPB Q12 [facility] PRN Reason: Protocol Stop: 06/29/17 22:01 Last Admin: 06/25/17 09:02 Dose: 100 mls/hr Doxycycline Hyclate 100 mg/ (Sodium Chloride) 100 mls @ 100 mls/hr IVPB Q12 [facility] PRN Reason: Protocol Last Admin: 06/25/17 09:03 Dose: 100 mls/hr Insulin Detemir (Levemir) 15 unit SC ACBHS [facility] Last Admin: 06/25/17 07:52 Dose: Not Given Insulin Human Regular (Humulin R Med) 0 units SC ACHS [facility] PRN Reason: Protocol Last Admin: 06/25/17 07:51 Dose: Not Given Levalbuterol HCl (Xopenex) 1.25 mg IH [id number] [facility] Bisoprolol [Zebeta] (5 Mg (Home Med)) 5 mg PO DAILY [facility] Ondansetron HCl (Zofran Inj) 4 mg IVP Q4H PRN PRN Reason: Nausea/Vomiting Oseltamivir Phosphate (Tamiflu Susp) 30 mg PO BID [facility] PRN Reason: Protocol Last Admin: 06/25/17 09:02 Dose: 30 mg Pantoprazole Sodium (Protonix Ec Tab) 40 mg PO 0600 [facility] Last Admin: 06/25/17 05:51 Dose: 40 mg - Labs Labs: 06/25/17 05:30 06/25/17 05:30 PT 15.6 SECONDS (9.4-12.5) H 06/24/17 09:25 INR 1.35 (0.93-1.08) H 06/24/17 09:25 APTT 32.6 Seconds (25.1-36.5) 06/24/17 09:25 - Constitutional Appears: Chronically Ill - Head Exam Head Exam: NORMAL INSPECTION - Respiratory Exam Respiratory Exam: Decreased Breath Sounds - Cardiovascular Exam Cardiovascular Exam: +S1, +S2 - GI/Abdominal Exam GI & Abdominal Exam: Soft. absent: Tenderness Assessment and Plan - Assessment and Plan (Free Text) Plan: Assessment Systemic Inflammatory Response Syndrome, consider due to systemic viral illness with Influenza on top of acute CHF exacerbation, with probable HCAP left groin skin and skin structure infection DM HTN pulmonary HTN chronic CHF atrial fibrillation on anticoagulation Plan continue cefepime and doxycycline day 3; PCT is 0.78; reviewed CXR - complete up to 7 days of therapy continue Tamiflu day 3 - rapid flu test is positive - complete 5 days of therapy surgery following groin infection will continue to monitor clinically
[2017-06-27] MEDS: Levalbuterol 1.25 MG/3 ML Inhal Soln UD IH SCH ×4 (01:14→20:45)
[2017-06-27 05:08] LABS: ARTERIAL BLOOD GAS HCO3 33.9 mmol/L (21-28); ARTERIAL BLOOD GAS O2 SAT 93.2 % (95-98); ARTERIAL BLOOD GAS PCO2 56 mm/Hg (35-45); ARTERIAL BLOOD GAS PH 7.39 (7.35-7.45); ARTERIAL BLOOD GAS TCO2 35.6 mmol.L (22-28)
[2017-06-27] MEDS: Pantoprazole 40 mg EC Tab PO SCH (05:30)
[2017-06-27 09:24] LABS: HEMOGLOBIN 11.7 g/dL (12.0-16.0); MEAN CELL VOLUME 92.3 fl (80.0-105.0); MEAN CORPUSCULAR HEMOGLOBIN 28.3 pg (25.0-35.0); MEAN CORPUSCULAR HGB CONC 30.6 g/dl (31.0-37.0); MEAN PLATELET VOLUME 11.2 fl (7.0-11.0); RBC 4.14 10^6/uL (3.5-6.1); RED CELL DISTRIBUTION WIDTH 15.4 % (11.5-14.5); WHITE BLOOD COUNT 15.5 10^3/ul (4.5-11.0)
[2017-06-27 09:35] LABS: ALB/GLOB RATIO 0.9 (1.1-1.8); CALCIUM 9.6 mg/dL (8.4-10.5)
[2017-06-27] MEDS: Insulin Detemir 100 units/ml Vial (Levemir) SC SCH ×2 (09:36→21:24)
[2017-06-27] MEDS: Insulin Reg-MEDIUM-Coverage SC SCH ×4 (09:37→21:24)
[2017-06-27] MEDS: Cefepime IV 2 gm in NS 2 GM/100 ML BAG IVPB SCH (09:38)
[2017-06-27] MEDS: Oseltamivir 6 MG/ML PO SCH ×2 (10:51→17:37)
--- NOTE | 2017-06-27 11:23 | CP.PCM.PN ---
Subjective - Date & Time of Evaluation Date of Evaluation: 06/27/17 Time of Evaluation: 09:00 - Subjective Subjective: Comfortable in bed, no fevers, not in distress. Objective - Vital Signs/Intake and Output Vital Signs (last 24 hours): Temp Pulse Resp BP Pulse Ox 98.7 F 84 18 144/95 H 98 06/26/17 17:31 06/26/17 17:31 06/26/17 17:31 06/26/17 17:31 06/26/17 16:37 Intake and Output: 06/26/17 06/26/17 06:59 18:59 Intake Total 320 200 Output Total 200 200 Balance 120 0 - Medications Medications: Current Medications Acetaminophen (Tylenol 325mg Tab) 650 mg PO Q4H PRN PRN Reason: Fever >100.5 F Apixaban (Eliquis) 2.5 mg PO BID [facility] PRN Reason: Protocol Last Admin: 06/26/17 17:09 Dose: 2.5 mg Aspirin (Aspirin Chewable) 81 mg PO DAILY [facility] Last Admin: 06/26/17 09:29 Dose: 81 mg Atorvastatin Calcium (Lipitor) 80 mg PO HS [facility] Last Admin: 06/25/17 22:38 Dose: 80 mg Ferrous Sulfate (Feosol) 324 mg PO DAILY [facility] Last Admin: 06/26/17 09:30 Dose: 324 mg Furosemide (Lasix) 40 mg IVP Q24H [facility] Last Admin: 06/26/17 06:48 Dose: 40 mg Doxycycline Hyclate 100 mg/ (Sodium Chloride) 100 mls @ 100 mls/hr IVPB Q12 [facility] PRN Reason: Protocol Last Admin: 06/26/17 09:32 Dose: 100 mls/hr Cefepime HCl (Maxipime 2gm) 2 gm in 100 mls @ 100 mls/hr IVPB DAILY [facility] PRN Reason: Protocol Stop: 06/29/17 10:01 Insulin Detemir (Levemir) 15 unit SC ACBHS [facility] Last Admin: 06/26/17 09:31 Dose: Not Given Insulin Human Regular (Humulin R Med) 0 units SC ACHS [facility] PRN Reason: Protocol Last Admin: 06/26/17 11:34 Dose: Not Given Levalbuterol HCl (Xopenex) 1.25 mg IH [id number] [facility] Last Admin: 06/26/17 14:15 Dose: 1.25 mg Bisoprolol [Zebeta] (5 Mg (Home Med)) 5 mg PO DAILY [facility] Last Admin: 06/26/17 09:29 Dose: Not Given Ondansetron HCl (Zofran Inj) 4 mg IVP Q4H PRN PRN Reason: Nausea/Vomiting Oseltamivir Phosphate (Tamiflu Susp) 30 mg PO BID [facility] PRN Reason: Protocol Last Admin: 06/26/17 17:09 Dose: 30 mg Pantoprazole Sodium (Protonix Ec Tab) 40 mg PO 0600 [facility] Last Admin: 06/26/17 05:30 Dose: 40 mg - Labs Labs: 06/26/17 09:30 06/26/17 09:30 PT 15.6 SECONDS (9.4-12.5) H 06/24/17 09:25 INR 1.35 (0.93-1.08) H 06/24/17 09:25 APTT 32.6 Seconds (25.1-36.5) 06/24/17 09:25 - Constitutional Appears: Chronically Ill - Head Exam Head Exam: NORMAL INSPECTION - ENT Exam ENT Exam: Mucous Membranes Moist - Neck Exam Neck Exam: absent: Meningismus - Respiratory Exam Respiratory Exam: Decreased Breath Sounds - Cardiovascular Exam Cardiovascular Exam: +S1, +S2 - GI/Abdominal Exam GI & Abdominal Exam: Soft. absent: Tenderness Assessment and Plan - Assessment and Plan (Free Text) Plan: Assessment Systemic Inflammatory Response Syndrome, consider due to systemic viral illness with Influenza on top of acute CHF exacerbation, with probable HCAP left groin skin and skin structure infection DM HTN pulmonary HTN chronic CHF atrial fibrillation on anticoagulation Plan continue cefepime and doxycycline day 4; PCT is 0.78; reviewed CXR - complete up to 7 days of therapy continue Tamiflu day 4 - rapid flu test is positive - complete 5 days of therapy surgery following groin infection will continue to monitor clinically
--- NOTE | 2017-06-27 15:10 | PN ---
DATE: SUBJECTIVE: The patient is an 82-year-old, seen and examined, seems to be more alert as per family as compared to yesterday. Mild shortness of breath. Did eat banana and oatmeal this morning. No nausea or vomiting. No diarrhea. Still has cough. PHYSICAL EXAMINATION VITAL SIGNS: She is afebrile. Pulse 90, respirations 20, blood pressure 158/79. LUNGS: Bilateral few expiratory rhonchi. HEART: S1 and S2 audible, irregular, rate controlled. ABDOMEN: Soft, obese, nontender. No rebound. No guarding. NEUROLOGIC: She is sleepy, but arousable. EXTREMITIES: Bilateral legs, she has +2 edema with slight erythema of both shins. LABORATORY DATA: WBC is 15.5, hemoglobin 11.7, hematocrit 38.2, platelet of 227,000. Chemistry: Sodium 137, potassium 3.9, chloride 99, CO2 26, BUN 52, creatinine 2.0, blood sugar of 194. An x-ray shows right lower lobe infiltrate and bilateral pleural effusions. Her vaginal cultures are positive for Gram-positive cocci and flu test is positive. ASSESSMENT 1. Viral syndrome. 2. Right lower lobe infiltrate. 3. Bronchospasm. 4. Hypertension. 5. History of atrial fibrillation. 6. Hyperlipidemia. 7. Morbid obesity. 8. History of congestive heart failure, currently stable. 9. History of pulmonary hypertension. 10. Non-insulin dependent diabetes. PLAN: Patient is currently on aspirin 81 mg daily, she is on doxycycline. She is on Eliquis 2.5 mg twice a day. Her blood sugar is being monitored. She is on Lasix 40 mg q. 24 hours. She is receiving cefepime, Tamiflu and she is on nebulizer treatment. Out of bed to chair. Incentive spirometry has been recommended and we will follow up this patient. Jean Pierre Giles MD
[2017-06-27] MEDS: BISOPROLOL 5 MG PO SCH (17:37)
[2017-06-28] MEDS: Levalbuterol 1.25 MG/3 ML Inhal Soln UD IH SCH ×4 (03:57→21:15)
[2017-06-28] MEDS: Pantoprazole 40 mg EC Tab PO SCH (05:48)
[2017-06-28] MEDS: Insulin Detemir 100 units/ml Vial (Levemir) SC SCH ×2 (08:30→22:07)
[2017-06-28] MEDS: Insulin Reg-MEDIUM-Coverage SC SCH ×4 (08:30→22:00)
[2017-06-28] MEDS: Cefepime IV 2 gm in NS 2 GM/100 ML BAG IVPB SCH (09:48)
[2017-06-28] MEDS: BISOPROLOL 5 MG PO SCH (10:00)
[2017-06-28] MEDS: Oseltamivir 6 MG/ML PO SCH ×2 (10:03→19:07)
[2017-06-28 10:59] LABS: EOS # 0.1 (0.0-0.7); EOS % 0.9 % (1.5-5.0); GRAN # 13.03 (1.4-6.5); GRAN % 86.7 % (50.0-68.0); LYMPH # 0.8 (1.2-3.4); LYMPH % 5.4 % (22.0-35.0); MEAN CELL VOLUME 91.4 fl (80.0-105.0); MEAN CORPUSCULAR HEMOGLOBIN 27.7 pg (25.0-35.0); MEAN CORPUSCULAR HGB CONC 30.3 g/dl (31.0-37.0); MEAN PLATELET VOLUME 11.2 fl (7.0-11.0); MONO # 1.1 (0.1-0.6); RBC 3.97 10^6/uL (3.5-6.1); RED CELL DISTRIBUTION WIDTH 15.8 % (11.5-14.5)
[2017-06-28 11:19] LABS: CALCIUM 9.6 mg/dL (8.4-10.5)
[2017-06-28] MEDS: Linezolid 600 mg in D5W 300 ml 600 MG/300 ML BAG IVPB SCH ×2 (12:55→22:06)
--- NOTE | 2017-06-28 14:42 | PN ---
DATE: SUBJECTIVE: The patient is 82 years old, seen and examined lying in bed. She seems to be having mild shortness of breath, on BiPAP. According to daughter, who is at the bedside, she did eat a little better today. No nausea or vomiting. According to daughter, she is not as alert as yesterday. PHYSICAL EXAMINATION: VITAL SIGNS: She is afebrile, pulse 70, respirations 18, blood pressure 146/66. LUNGS: Bilateral good airflow. No rhonchi or crackle. She has decreased breath sound at bases. HEART: S1 and S2 audible. ABDOMEN: Soft. Nontender. No rebound. No guarding. NEUROLOGIC: The patient is awake, alert, oriented, able to communicate. LABORATORY EXAM: WBC is 15, hemoglobin 11, hematocrit 36, platelet 269. Chemistry: Sodium 138, potassium 3.4, chloride 97, CO2 of 31, BUN 53, creatinine 2.3, blood sugar 186. Flu test is positive. ASSESSMENT: 1. Viral syndrome. 2. Right lower lobe pneumonia. 3. Asthmatic bronchitis. 4. History of atrial fibrillation, on anticoagulant. 5. Hyperlipidemia. 6. Morbid obesity. 7. History of pulmonary hypertension. 8. Noninsulin-dependent diabetes. PLAN: Currently, the patient is on BiPAP. She is getting nebulizer treatment. She is on Zyvox 600 q. 12. She is on Xopenex because of AFib that is preferable nebulizer. She is on Tamiflu and cefepime. Out of bed to chair and her potassium is being supplemented. Jean Pierre Giles MD
--- NOTE | 2017-06-28 15:57 | CP.PCM.PN ---
Subjective - Date & Time of Evaluation Date of Evaluation: 06/28/17 Time of Evaluation: 09:20 - Subjective Subjective: Still on BiPAP, no fevers, not in distress. Objective - Vital Signs/Intake and Output Vital Signs (last 24 hours): Temp Pulse Resp BP Pulse Ox 98.0 F 110 H 20 158/79 H 99 06/27/17 06:00 06/27/17 06:00 06/27/17 06:00 06/27/17 05:42 06/27/17 06:00 Intake and Output: 06/27/17 06/27/17 06:59 18:59 Intake Total 100 0 Output Total 100 Balance 100 -100 - Medications Medications: Current Medications Acetaminophen (Tylenol 325mg Tab) 650 mg PO Q4H PRN PRN Reason: Fever >100.5 F Apixaban (Eliquis) 2.5 mg PO BID [facility] PRN Reason: Protocol Last Admin: 06/27/17 10:51 Dose: 2.5 mg Aspirin (Aspirin Chewable) 81 mg PO DAILY [facility] Last Admin: 06/27/17 09:37 Dose: 81 mg Atorvastatin Calcium (Lipitor) 80 mg PO HS [facility] Last Admin: 06/26/17 22:30 Dose: 80 mg Ferrous Sulfate (Feosol) 324 mg PO DAILY [facility] Last Admin: 06/27/17 09:37 Dose: 324 mg Furosemide (Lasix) 40 mg IVP Q24H [facility] Last Admin: 06/27/17 05:42 Dose: 40 mg Doxycycline Hyclate 100 mg/ (Sodium Chloride) 100 mls @ 100 mls/hr IVPB Q12 [facility] PRN Reason: Protocol Last Admin: 06/27/17 09:38 Dose: 100 mls/hr Cefepime HCl (Maxipime 2gm) 2 gm in 100 mls @ 100 mls/hr IVPB DAILY [facility] PRN Reason: Protocol Stop: 06/29/17 10:01 Last Admin: 06/27/17 09:38 Dose: 100 mls/hr Insulin Detemir (Levemir) 15 unit SC [facility] Last Admin: 06/27/17 09:36 Dose: 15 unit Insulin Human Regular (Humulin R Med) 0 units SC [facility] PRN Reason: Protocol Last Admin: 06/27/17 09:37 Dose: 1 units Levalbuterol HCl (Xopenex) 1.25 mg IH [id number] [facility] Last Admin: 06/27/17 07:44 Dose: 1.25 mg Bisoprolol [Zebeta] (5 Mg (Home Med)) 5 mg PO DAILY [facility] Last Admin: 06/26/17 09:29 Dose: Not Given Ondansetron HCl (Zofran Inj) 4 mg IVP Q4H PRN PRN Reason: Nausea/Vomiting Oseltamivir Phosphate (Tamiflu Susp) 30 mg PO BID [facility] PRN Reason: Protocol Last Admin: 06/27/17 10:51 Dose: 30 mg Pantoprazole Sodium (Protonix Ec Tab) 40 mg PO 0600 [facility] Last Admin: 06/27/17 05:30 Dose: 40 mg - Labs Labs: 06/27/17 09:00 06/27/17 09:00 PT 15.6 SECONDS (9.4-12.5) H 06/24/17 09:25 INR 1.35 (0.93-1.08) H 06/24/17 09:25 APTT 32.6 Seconds (25.1-36.5) 06/24/17 09:25 - Constitutional Appears: Chronically Ill - Head Exam Head Exam: NORMAL INSPECTION - Neck Exam Neck Exam: absent: Meningismus - Respiratory Exam Respiratory Exam: Decreased Breath Sounds - Cardiovascular Exam Cardiovascular Exam: +S1, +S2 - GI/Abdominal Exam GI & Abdominal Exam: Soft. absent: Tenderness Assessment and Plan - Assessment and Plan (Free Text) Plan: Assessment Systemic Inflammatory Response Syndrome, consider due to systemic viral illness with Influenza on top of acute CHF exacerbation, with probable HCAP left groin skin and skin structure infection / vulvar abscess with MRSA DM HTN pulmonary HTN chronic CHF atrial fibrillation on anticoagulation Plan continue cefepime and doxycycline day 5, added Zyvox for the vulvar abscess; PCT is 0.78; reviewed CXR - complete up to 7 days of therapy (for Cefepime and Doxycycline) continue Tamiflu day 5 - rapid flu test is positive - complete 5 days of therapy surgery following groin infection will continue to monitor clinically
[2017-06-28] MEDS: Potassium Chloride 20 mEq ER Tab PO SCH (16:28)
--- NOTE | 2017-06-28 17:02 | CP.PCM.PN ---
Subjective - Date & Time of Evaluation Date of Evaluation: 06/28/17 Time of Evaluation: 12:15 - Subjective Subjective: Podiatry Progress Note - Dr. Jones 82 year old female patient PMHx of DM, HTN, pulmonary HTN, chronic CHF, atrial fibrillation seen and evaluated at bedside for bilateral LE chronic venous stasis with ulceration to right leg-stable. Patient has BiPap on during visitation and appears lethargic. ursing staff reports no acute overnight events. Objective - Vital Signs/Intake and Output Vital Signs (last 24 hours): Temp Pulse Resp BP Pulse Ox 98 F 70 18 146/66 96 06/28/17 12:00 06/28/17 12:00 06/28/17 12:00 06/28/17 12:00 06/28/17 06:00 Intake and Output: 06/28/17 06/28/17 06:59 18:59 Intake Total 100 Output Total 400 Balance -300 - Medications Medications: Current Medications Acetaminophen (Tylenol 325mg Tab) 650 mg PO Q4H PRN PRN Reason: Fever >100.5 F Last Admin: 06/28/17 05:48 Dose: 650 mg Apixaban (Eliquis) 2.5 mg PO BID [facility] PRN Reason: Protocol Last Admin: 06/28/17 09:55 Dose: 2.5 mg Aspirin (Aspirin Chewable) 81 mg PO DAILY [facility] Last Admin: 06/28/17 09:55 Dose: 81 mg Atorvastatin Calcium (Lipitor) 80 mg PO HS [facility] Last Admin: 06/27/17 21:24 Dose: 80 mg Ferrous Sulfate (Feosol) 324 mg PO DAILY [facility] Last Admin: 06/28/17 09:55 Dose: 324 mg Furosemide (Lasix) 40 mg IVP Q24H [facility] Last Admin: 06/28/17 05:49 Dose: 40 mg Doxycycline Hyclate 100 mg/ (Sodium Chloride) 100 mls @ 100 mls/hr IVPB Q12 [facility] PRN Reason: Protocol Last Admin: 06/28/17 09:48 Dose: 100 mls/hr Cefepime HCl (Maxipime 2gm) 2 gm in 100 mls @ 100 mls/hr IVPB DAILY [facility] PRN Reason: Protocol Stop: 06/29/17 10:01 Last Admin: 06/28/17 09:48 Dose: 100 mls/hr Linezolid (Zyvox 600mg/300ml D5w) 600 mg in 300 mls @ 200 mls/hr IVPB Q12 [facility] PRN Reason: Protocol Stop: 07/05/17 10:16 Last Admin: 06/28/17 12:55 Dose: 200 mls/hr Insulin Detemir (Levemir) 15 unit SC ACBHS [facility] Last Admin: 06/28/17 08:30 Dose: 15 unit Insulin Human Regular (Humulin R Med) 0 units SC ACHS [facility] PRN Reason: Protocol Last Admin: 06/28/17 16:27 Dose: 5 units Levalbuterol HCl (Xopenex) 1.25 mg IH [id number] [facility] Last Admin: 06/28/17 13:48 Dose: 1.25 mg Bisoprolol [Zebeta] (5 Mg (Home Med)) 5 mg PO DAILY [facility] Last Admin: 06/28/17 10:00 Dose: Not Given Ondansetron HCl (Zofran Inj) 4 mg IVP Q4H PRN PRN Reason: Nausea/Vomiting Oseltamivir Phosphate (Tamiflu Susp) 30 mg PO BID [facility] PRN Reason: Protocol Last Admin: 06/28/17 10:03 Dose: 30 mg Pantoprazole Sodium (Protonix Ec Tab) 40 mg PO 0600 [facility] Last Admin: 06/28/17 05:48 Dose: 40 mg Potassium Chloride (K-Dur 20 Meq Er Tab) 20 meq PO BRK [facility] Last Admin: 06/28/17 16:28 Dose: 20 meq - Labs Labs: 06/28/17 10:45 06/28/17 10:45 PT 15.6 SECONDS (9.4-12.5) H 06/24/17 09:25 INR 1.35 (0.93-1.08) H 06/24/17 09:25 APTT 32.6 Seconds (25.1-36.5) 06/24/17 09:25 - Constitutional Appears: Non-toxic, No Acute Distress - Extremities Exam Additional comments: Vasc: DP and PT nonpalpable secondary to edema b/l. CFT <3 seconds to all digits x10. Temperature graduent warm to warm. +1 pitting edema to bilateral lower extremities. Neuro: Gross sensation diminished bilaterally. Derm: Superficial ulceration noted to anterior aspect of right leg - noted to have a mixed fibrogranular base and mild erythema periwound; mild serosanguinous drainage noted; no purulence, fluctuance, malodor, undermining, noted. Venous stasis dermatitis present bilaterally. Ulceration noted to posterior aspect of left heel. Drainage has improved. Less drainage noted today. Ortho: No pain on palpation bilateral lower extremities. - Neurological Exam Neurological Exam: Awake Assessment and Plan - Assessment and Plan (Free Text) Assessment: 82F with venous stasis ulceration right leg and bilateral lower extremity edema- stable Plan: Patient seen and evaluated with attending, Dr. Jones Afebrile, WBC 15.0 Continue abx per ID - Zyvox, Doxycycline, & Cefepime Clean ulceration and LE with saline solution Will leave dressing off for LE to air off bilaterally Wounds appear to be stable at this time C/w Multipodus boots- to be worn at all times while in bed Podiatry will continue to follow while patient in house
[2017-06-29] MEDS: Levalbuterol 1.25 MG/3 ML Inhal Soln UD IH SCH ×3 (02:25→13:08)
[2017-06-29] MEDS: Pantoprazole 40 mg EC Tab PO SCH (06:43)
[2017-06-29 06:54] VITALS: O2SAT 98
--- NOTE | 2017-06-29 07:40 | PN ---
DATE: 06/29/2017 SUBJECTIVE: The patient appears comfortable at rest. She is not short of breath. She is very weak appearing. OBJECTIVE VITAL SIGNS: Temperature is 98.0, pulse 106, respirations 18, blood pressure 115/75. Oxygen saturation on nasal cannula is 92%-96%. HEENT: Normocephalic, atraumatic. NECK: Positive JVD. CARDIOVASCULAR: Systolic ejection murmur at the lower left sternal border. Positive S3 gallop. LUNGS: Decreased breath sounds at the bases with crackles. Minimal rhonchi. No wheezing. EXTREMITIES: Less edema. No cyanosis, no clubbing. Calves are nontender to palpation. GASTROINTESTINAL: Abdomen is soft, nontender and nondistended. Bowel sounds are positive. SKIN: Less erythema - both lower extremities. No rashes. NEUROLOGIC: Exam limited at the present time. IMPRESSION 1. Respiratory failure. 2. Acute congestive heart failure. 3. Chronic obstructive pulmonary disease. 4. Rule out pneumonia - right lower lobe. 5. Pulmonary hypertension. 6. Renal insufficiency. PLAN: The patient appears comfortable this morning. She is not short of breath at rest. At this time, she does appear very weak. I did discuss the case with the night nurse at length. The night nurse stated that the patient had an uneventful night, but is again refusing her BiPAP. I did discuss this issue with her at length this morning again. She continues to refuse. The daughter usually visits her in the morning and hopefully, I can meet up with the daughter and discuss this issue again. On physical exam, there is less bronchospasm noted. In addition, there is less alveolar-arterial gradient. I will continue with the current nebulizer treatments for now. I will also order a repeat arterial blood gas this morning. I did review the lab work over the weekend. A rising BUN/creatinine is noted. I will decrease the diuretic dosage this morning. I will also order repeat morning labs. I will also order a repeat chest x-ray for this morning. Clinical status of the patient is certainly improved - compared to the initial presentation. However, again, her future status/prognosis remains very guarded at best/poor. All are aware. I will discuss the above with Dr. Pelaez. Los [place] MD < MTDD
[2017-06-29] MEDS ORDERED: Non Formulary Medication (Bisoprolol [Zebeta] 10 mg) PO SCH ×2 (08:22→10:00)
[2017-06-29 08:27] LABS: ALBUMIN 2.8 g/dL (3.0-4.8); CALCIUM 9.6 mg/dL (8.4-10.5)
[2017-06-29] MEDS: Insulin Reg-MEDIUM-Coverage SC SCH ×3 (08:29→17:21)
--- NOTE | 2017-06-29 08:38 | RAD ---
HISTORY: follow up COMPARISON: 06/24/2017. FINDINGS: LUNGS: There is moderate pulmonary venous congestion. PLEURA: No change in moderate pleural effusions, larger on the right, no pneumothorax apparent. CARDIOVASCULAR: Stable. Atherosclerotic aortic calcifications are present. OSSEOUS STRUCTURES: No significant abnormalities. VISUALIZED UPPER ABDOMEN: Normal. OTHER FINDINGS: None. IMPRESSION: Persistent moderate pleural effusions, larger on the right and persistent moderate pulmonary venous congestion.
[2017-06-29 08:53] LABS: ARTERIAL BLOOD GAS HCO3 32.2 mmol/L (21-28); ARTERIAL BLOOD GAS HEMOGLOBIN 10.3 g/dL (11.7-17.4); ARTERIAL BLOOD GAS O2 CAPACITY 14.2 mL/dl (16-24); ARTERIAL BLOOD GAS O2 SAT 98.4 % (95-98); ARTERIAL BLOOD GAS PCO2 57 mm/Hg (35-45); ARTERIAL BLOOD GAS PH 7.36 (7.35-7.45); ARTERIAL BLOOD GAS TCO2 33.9 mmol.L (22-28)
[2017-06-29] MEDS: Potassium Chloride 20 mEq ER Tab PO SCH (09:02)
[2017-06-29] MEDS: Insulin Detemir 100 units/ml Vial (Levemir) SC SCH (09:02)
[2017-06-29] MEDS ORDERED: BISOPROLOL 5 MG PO SCH (10:16)
[2017-06-29] MEDS: Linezolid 600 mg in D5W 300 ml 600 MG/300 ML BAG IVPB SCH (11:20)
[2017-06-29] MEDS: Cefepime IV 2 gm in NS 2 GM/100 ML BAG IVPB SCH (11:24)
--- NOTE | 2017-06-29 12:49 | PN ---
DATE: 06/29/2017 SUBJECTIVE: The patient has no complaints of any chest pain, no shortness of breath. She says she is not able to sleep last night. PHYSICAL EXAMINATION VITAL SIGNS: Temperature is 97.7, pulse of 106, blood pressure 130/78, respirations 20, O2 saturation 98%. GENERAL: The patient is lying in bed, flat, comfortable. HEENT: No oral lesion. Anicteric sclerae. Moist mucosa. NECK: No JVD, adenopathy, or thyromegaly. CARDIOVASCULAR: S1 and S2, regular. No murmurs, rubs, or gallops. LUNGS: Clear to auscultation bilaterally. No wheeze, rales, or rhonchi. ABDOMEN: Bowel sounds are positive, soft, nontender and nondistended. EXTREMITIES: No cyanosis, clubbing or edema. LABORATORY DATA: No new labs. ASSESSMENT: 1. Viral syndrome secondary to flu. 2. Hypercapnic respiratory failure, improving. 3. Sepsis. 4. Sacral decubitus ulcer. 5. Diabetes type 2. 6. Hypertension. 7. Methicillin-resistant Staphylococcus aureus of the vulva area. 8. Chronic kidney disease, stage III. 9. Pulmonary hypertension. 10. Left labial boil, improving. 11. Venous stasis ulcer of the right leg. 12. Do not resuscitate/do not intubate. PLAN: The patient is currently comfortable. She is on doxycycline for antibiotics. She is on Eliquis for her anticoagulation. She is on Levemir for her diabetes. The patient is on Xopenex. She is receiving linezolid. She is on heart healthy diet. We will continue to follow closely. I did speak to the patient's daughter, Natalie, to give her an update on the patient's diagnoses and plan of care. Her pCO2 is continuing to decrease. The patient will get repeat blood work tomorrow. She will also continue her bisoprolol 10 mg that is the home medications that I reconciled in the chart. Darvin Pelaez MD
[2017-06-29] MEDS: Oseltamivir 6 MG/ML PO SCH ×2 (13:33→17:40)
--- NOTE | 2017-06-29 14:05 | CP.PCM.PN ---
Subjective - Date & Time of Evaluation Date of Evaluation: 06/29/17 Time of Evaluation: 14:02 - Subjective Subjective: Podiatry Progress Note - Dr. Jones 82 year old female patient PMHx of DM, HTN, pulmonary HTN, chronic CHF, atrial fibrillation seen and evaluated at bedside for bilateral LE chronic venous stasis with ulceration to right leg-stable. Patient has BiPap on during visitation and appears lethargic. Multipodus on. Objective - Vital Signs/Intake and Output Vital Signs (last 24 hours): Temp Pulse Resp BP Pulse Ox 98.3 F 68 20 134/90 98 06/29/17 12:00 06/29/17 12:00 06/29/17 12:00 06/29/17 12:00 06/29/17 06:00 Intake and Output: 06/29/17 06/29/17 06:59 18:59 Intake Total 400 0 Output Total 600 Balance 400 -600 - Medications Medications: Current Medications Acetaminophen (Tylenol 325mg Tab) 650 mg PO Q4H PRN PRN Reason: Fever >100.5 F Last Admin: 06/28/17 05:48 Dose: 650 mg Apixaban (Eliquis) 2.5 mg PO BID [facility] PRN Reason: Protocol Last Admin: 06/29/17 11:20 Dose: 2.5 mg Aspirin (Aspirin Chewable) [address] [facility] Last Admin: 06/29/17 11:20 Dose: 81 mg Atorvastatin Calcium (Lipitor) [address] [facility] Last Admin: 06/28/17 22:07 Dose: 80 mg Ferrous Sulfate (Feosol) [address] [facility] Last Admin: 06/29/17 11:20 Dose: 324 mg Furosemide (Lasix) [address] [facility] Last Admin: 06/29/17 06:46 Dose: 20 mg Doxycycline Hyclate 100 mg/ (Sodium Chloride) 100 mls @ 100 mls/hr IVPB Q12 [facility] PRN Reason: Protocol Last Admin: 06/29/17 11:39 Dose: 100 mls/hr Linezolid (Zyvox 600mg/300ml D5w) 600 mg in 300 mls @ 200 mls/hr IVPB Q12 [facility] PRN Reason: Protocol Stop: 07/05/17 10:16 Last Admin: 06/29/17 11:20 Dose: 200 mls/hr Insulin Detemir (Levemir) [address] [facility] Last Admin: 06/29/17 09:02 Dose: 15 unit Insulin Human Regular (Humulin R Med) [address] [facility] PRN Reason: Protocol Last Admin: 06/29/17 13:35 Dose: 1 units Levalbuterol HCl (Xopenex) 1.[id number] [facility] Last Admin: 06/29/17 13:08 Dose: 1.25 mg Bisoprolol [Zebeta] (5 Mg) (Home Med)) [address] [facility] Ondansetron HCl (Zofran Inj) 4 mg IVP Q4H PRN PRN Reason: Nausea/Vomiting Oseltamivir Phosphate (Tamiflu Susp) [address] [facility] PRN Reason: Protocol Last Admin: 06/29/17 13:33 Dose: 30 mg Pantoprazole Sodium (Protonix Ec Tab) [address] [facility] Last Admin: 06/29/17 06:43 Dose: 40 mg Potassium Chloride (K-Dur 20 Meq Er Tab) [address] [facility] Last Admin: 06/29/17 09:02 Dose: 20 meq - Labs Labs: 06/28/17 10:45 06/29/17 08:00 PT 15.6 SECONDS (9.4-12.5) H 06/24/17 09:25 INR 1.35 (0.93-1.08) H 06/24/17 09:25 APTT 32.6 Seconds (25.1-36.5) 06/24/17 09:25 - Constitutional Appears: Well, Non-toxic, No Acute Distress - Extremities Exam Extremities Exam: absent: Calf Tenderness Additional comments: Vasc: DP and PT nonpalpable secondary to edema b/l. CFT <3 seconds to all digits x10. Temperature graduent warm to warm. +1 pitting edema to bilateral lower extremities. Neuro: Gross sensation diminished bilaterally. Derm: Superficial ulceration noted to anterior aspect of right leg - noted to have a mixed fibrogranular base and mild erythema periwound; mild serosanguinous drainage noted; no purulence, fluctuance, malodor, undermining, noted. Venous stasis dermatitis present bilaterally. Ulceration noted to posterior aspect of left heel. Drainage has improved. Less drainage noted today. Ortho: No pain on palpation bilateral lower extremities. Assessment and Plan - Assessment and Plan (Free Text) Assessment: 82F with venous stasis ulceration right leg and bilateral lower extremity edema- stable Plan: Patient seen and evaluated with attending, Dr. Jones Afebrile, WBC 15.0 on 06/28/17 Continue abx per ID - Zyvox, Doxycycline, & Cefepime Clean ulceration and LE with saline solution and dressed with gauze, and dsd. Wounds appear to be stable at this time C/w Multipodus boots- to be worn at all times while in bed Podiatry will continue to follow while patient in house
--- NOTE | 2017-06-29 14:28 | CP.PCM.PN ---
Subjective - Date & Time of Evaluation Date of Evaluation: 06/29/17 Time of Evaluation: 09:30 - Subjective Subjective: Comfortable, less pain in the groin area, no fevers. Objective - Vital Signs/Intake and Output Vital Signs (last 24 hours): Temp Pulse Resp BP Pulse Ox 98 F 70 18 146/66 96 06/28/17 12:00 06/28/17 12:00 06/28/17 12:00 06/28/17 12:00 06/28/17 06:00 Intake and Output: 06/28/17 06/28/17 06:59 18:59 Intake Total 100 Output Total 400 Balance -300 - Medications Medications: Current Medications Acetaminophen (Tylenol 325mg Tab) 650 mg PO Q4H PRN PRN Reason: Fever >100.5 F Last Admin: 06/28/17 05:48 Dose: 650 mg Apixaban (Eliquis) 2.5 mg PO BID [facility] PRN Reason: Protocol Last Admin: 06/28/17 09:55 Dose: 2.5 mg Aspirin (Aspirin Chewable) 81 mg PO DAILY [facility] Last Admin: 06/28/17 09:55 Dose: 81 mg Atorvastatin Calcium (Lipitor) 80 mg PO HS [facility] Last Admin: 06/27/17 21:24 Dose: 80 mg Ferrous Sulfate (Feosol) 324 mg PO DAILY [facility] Last Admin: 06/28/17 09:55 Dose: 324 mg Furosemide (Lasix) 40 mg IVP Q24H [facility] Last Admin: 06/28/17 05:49 Dose: 40 mg Doxycycline Hyclate 100 mg/ (Sodium Chloride) 100 mls @ 100 mls/hr IVPB Q12 [facility] PRN Reason: Protocol Last Admin: 06/28/17 09:48 Dose: 100 mls/hr Cefepime HCl (Maxipime 2gm) 2 gm in 100 mls @ 100 mls/hr IVPB DAILY [facility] PRN Reason: Protocol Stop: 06/29/17 10:01 Last Admin: 06/28/17 09:48 Dose: 100 mls/hr Linezolid (Zyvox 600mg/300ml D5w) 600 mg in 300 mls @ 200 mls/hr IVPB Q12 [facility] PRN Reason: Protocol Stop: 07/05/17 10:16 Last Admin: 06/28/17 12:55 Dose: 200 mls/hr Insulin Detemir (Levemir) 15 unit SC ACBHS [facility] Last Admin: 06/28/17 08:30 Dose: 15 unit Insulin Human Regular (Humulin R Med) 0 units SC ACHS [facility] PRN Reason: Protocol Last Admin: 06/28/17 12:01 Dose: 1 units Levalbuterol HCl (Xopenex) 1.25 mg IH [id number] [facility] Last Admin: 06/28/17 13:48 Dose: 1.25 mg Bisoprolol [Zebeta] (5 Mg (Home Med)) 5 mg PO DAILY [facility] Last Admin: 06/28/17 10:00 Dose: Not Given Ondansetron HCl (Zofran Inj) 4 mg IVP Q4H PRN PRN Reason: Nausea/Vomiting Oseltamivir Phosphate (Tamiflu Susp) 30 mg PO BID [facility] PRN Reason: Protocol Last Admin: 06/28/17 10:03 Dose: 30 mg Pantoprazole Sodium (Protonix Ec Tab) 40 mg PO 0600 [facility] Last Admin: 06/28/17 05:48 Dose: 40 mg Potassium Chloride (K-Dur 20 Meq Er Tab) 20 meq PO BRK [facility] - Labs Labs: 06/28/17 10:45 06/28/17 10:45 PT 15.6 SECONDS (9.4-12.5) H 06/24/17 09:25 INR 1.35 (0.93-1.08) H 06/24/17 09:25 APTT 32.6 Seconds (25.1-36.5) 06/24/17 09:25 - Constitutional Appears: Chronically Ill - Head Exam Head Exam: NORMAL INSPECTION - Neck Exam Neck Exam: absent: Meningismus - Respiratory Exam Respiratory Exam: Decreased Breath Sounds - Cardiovascular Exam Cardiovascular Exam: +S1, +S2 - GI/Abdominal Exam GI & Abdominal Exam: Soft. absent: Tenderness Assessment and Plan - Assessment and Plan (Free Text) Plan: Assessment Systemic Inflammatory Response Syndrome, consider due to systemic viral illness with Influenza on top of acute CHF exacerbation, with probable HCAP left groin skin and skin structure infection / vulvar abscess with MRSA DM HTN pulmonary HTN chronic CHF atrial fibrillation on anticoagulation Plan continue cefepime and doxycycline day 6, added Zyvox for the vulvar abscess; PCT is 0.78; reviewed CXR - complete up to 7 days of therapy (for Cefepime and Doxycycline) completed 5 days of Tamiflu surgery following groin infection will continue to monitor clinically
[2017-06-29] MEDS ORDERED: Cefepime 1gm in NS 100ml 1 GM/100 ML BAG IVPB SCH (14:30)
[2017-06-29 18:29] VITALS: BP 117/71; RESP 18; TEMP 97.4
[2017-06-29 18:48] VITALS: PULSE 90
--- NOTE | 2017-06-30 16:44 | PQF RESP ---
06/30/17 Dr. Jose, Respiratory failure with hypercapnia is documented for this patient. Please specify whether this is acute/chronic. Thank you. Clarification of your documentation is requested to better reflect the severity of illness and intensity of treatment of your patient. Indicators present [x] Use of Home Oxygen [] Respiratory rate > 28 or <8/min (Labored respirations) [x] PCO2 > 50 mm Hg or (Hypercapnia) (somnolence) [] PaO2 < 60 mm Hg or Hypoxemia (confusion) [x] ABG blood gas pH < 7.35 [] SpO2 < 90% sat on Room Air [] Cyanosis [] Unable to Speak in Full Sentences [] Use of Accessory Muscles / Tripoding [] Wheezing [] Other: [] Location in the medical record that reflects the above clinical findings: [] Treatment Provided: [] PHYSICIAN'S RESPONSE Based on your medical judgment of the clinical indicators outlined above, are you treating this patient for a known or suspected: [] Acute Respiratory Failure (hypoxia or hypercapnia) [] Chronic Respiratory Failure (hypoxia or hypercapnia) [x] Acute on Chronic Respiratory Failure (hypoxia or hypercapnia) [] Hypoxemia please specify ACUTE, CHRONIC or ACUTE on CHRONIC [] Other []_ [] If unable to determine, please check the box, sign and date. Present On Admission (POA) Indicator: [x] Present at the time of admission [] Not present at the time of admission [] Clinically Undetermined In responding to this query, please exercise your independent professional judgment. The fact that a question is asked does not imply that any particular answer is desired or expected. Thank you for your clarification on this documentation. If you have any questions please call:[ ] * Thank you, [ ] bordereau clerk Chronic Respiratory Failure Description: Respiratory failure is a syndrome in which the respiratory system fails in one or both of its gas exchange functions: oxygenation and carbon dioxide elimination. In theory, respiratory failure is defined as a Pa02 value of <60 mm/Hg or a PaC02 of >50 mm/Hg. However, these values may be affected by renal compensation. Respiratory failure may be acute or chronic. While acute respiratory failure is characterized by life-threatening derangement in arterial blood gases and acid-base balance, the manifestations of chronic respiratory failure are less dramatic and may not be as readily apparent. Classifications: Respiratory failure may be classified as hypoxemic (usually characterized by Pa02 of <60 mm/Hg) or hypercapnic (usually characterized by PaC02 >50 mm/Hg) and either may be acute or chronic. Chronic hypercapnic respiratory failure develops over time and allows for renal compensation and an increase in bicarbonate concentration; therefore the pH is usually only slightly decreased. The distinction between acute and chronic hypoxemic respiratory failure cannot readily be made on the basis of ABGs; the clinical markers of chronic hypoxemia, such as polythycemia or cor pulmonale suggest a long standing disorder (chronic hypoxemic respiratory failure). Clinical Indicators: dyspnea at rest or "chronic" dyspnea, concomitant conditions such as polycythemia or cor pulmonale, requirement for continuous oxygen support, forced expiratory volume in one second (FEV1) of 49 or less, pursed lip breathing, "barrel" chest, hyperinflation by CXR, muscle wasting, malnutrition/obesity, poor exercise capacity, peripheral edema, description as a "blue bloater" (usually associated with chronic, obstructive bronchitis) or "pink puffer" (usually associated with emphysema) Risks: Chronic Hypoxemic Respiratory Failure - COPD, pulmonary fibrosis, asthma , pulmonary arterial hypertension, granulomatous lung diseases, congenital heart disease, bronchiectasis, kyphoscoliosis, obesity; Chronic Hypercapnic Respiratory Failure - COPD, severe asthma, myasthenia gravis, polyneuropathy, polio, head and cervical spine injuries, obesity hypoventilation syndrome. Treatment: supplemental oxygen, bronchodilators, corticosteroids, adequate nutrition, lung transplant References: Am. J. Respir. Crit. Care Med. "Global Strategy for the Diagnosis, Management and Prevention of COPD: GOLD Exectuive Summary," Daniel Nettles Anzueto - 2007; Proceedings of the [place] [employer] "Mechanisms and Measurements of Dyspnea in COPD," [place] - 2006; WebMD; Respiratory Failure, Figueroa Prado MD - 10/2005; Nakul's Principles of Internal Medicine, 17th edition. Acute Respiratory Failure Acute Respiratory Failure indicators include: ~Respirations >28 ~Air hunger ~Use of accessory muscles of respiration ~Inability to speak in full sentences Cyanosis ~Pulse ox <90% RA or <95% on O2 pH <7.35 or >7.45 ~pO2 < 60 mm Hg (or 10mm below COPD patient's baseline) ~pCO2 >50mm Hg (or 10mm above COPD patient's baseline) "Respiratory failure may be assigned as a principal diagnosis when it is the condition established after study to be chiefly responsible for occasioning admission to the hospital. The fact that the respiratory failure was managed without intubation and mechanical ventilation does not preclude its use." [facility] 1988, p. 7 MTDD
== END 2017-06-29 20:28 | DRG 871 ==
LOC: ED 08:50 → ERH 10:13 → 2RNO 11:16
PROVIDERS: ADMIT Internal Medicine Nephrology; ATTEND Internal Medicine Nephrology
DX: A41.9 Sepsis, unspecified organism (principal); J11.00 Influenza due to unidentified influenza virus with unspecified type of pneumonia; J96.22 Acute and chronic respiratory failure with hypercapnia; L89.159 Pressure ulcer of sacral region, unspecified stage; E11.22 Type 2 diabetes mellitus with diabetic chronic kidney disease; I13.0 Hypertensive heart and chronic kidney disease with heart failure and stage 1 through stage 4 chronic kidney disease, or unspecified chronic kidney disease; E11.622 Type 2 diabetes mellitus with other skin ulcer; E87.2 Acidosis; I27.20 Pulmonary hypertension, unspecified; E66.01 Morbid (severe) obesity due to excess calories; I50.9 Heart failure, unspecified; J44.0 Chronic obstructive pulmonary disease with (acute) lower respiratory infection; L97.919 Non-pressure chronic ulcer of unspecified part of right lower leg with unspecified severity; N76.4 Abscess of vulva; E78.5 Hyperlipidemia, unspecified; I48.91 Unspecified atrial fibrillation; I83.019 Varicose veins of right lower extremity with ulcer of unspecified site; I87.8 Other specified disorders of veins; N18.3 Chronic kidney disease, stage 3 (moderate); Z66 Do not resuscitate; Z79.01 Long term (current) use of anticoagulants; Z87.891 Personal history of nicotine dependence; Z90.49 Acquired absence of other specified parts of digestive tract; Z99.81 Dependence on supplemental oxygen; Z98.42 Cataract extraction status, left eye; Z98.41 Cataract extraction status, right eye; R40.2412 Glasgow coma scale score 13-15, at arrival to emergency department; B95.62 Methicillin resistant Staphylococcus aureus infection as the cause of diseases classified elsewhere; Z51.5 Encounter for palliative care

== ENCOUNTER 2017-06-29 20:28 | Inpatient (IN) | payer OTHER, BC ==
[2017-06-29] MEDS ORDERED: Levalbuterol 1.25 MG/3 ML Inhal Soln UD IH PRN (20:59)
[2017-06-29] MEDS: Insulin Detemir 100 units/ml Vial (Levemir) SC SCH (22:59)
[2017-06-29] MEDS: Insulin Reg-MEDIUM-Coverage SC SCH (22:59)
[2017-06-30 00:56] VITALS: BMI 34.8
[2017-06-30] MEDS: Cefepime 1gm in NS 100ml 1 GM/100 ML BAG IVPB SCH (05:43)
[2017-06-30] MEDS: Pantoprazole 40 mg EC Tab PO SCH (05:44)
[2017-06-30] MEDS ORDERED: Linezolid 600 mg in D5W 300 ml 600 MG/300 ML BAG IVPB SCH (06:00)
[2017-06-30] MEDS: Insulin Detemir 100 units/ml Vial (Levemir) SC SCH ×2 (06:47→21:55)
[2017-06-30] MEDS: Insulin Reg-MEDIUM-Coverage SC SCH ×4 (06:47→21:54)
[2017-06-30 07:26] LABS: EOS # 0.7 (0.0-0.7); GRAN # 14.66 (1.4-6.5); GRAN % 81.6 % (50.0-68.0); HEMOGLOBIN 10.4 g/dL (12.0-16.0); LYMPH # 1.3 (1.2-3.4); MEAN CELL VOLUME 93.4 fl (80.0-105.0); MEAN CORPUSCULAR HEMOGLOBIN 27.5 pg (25.0-35.0); MEAN CORPUSCULAR HGB CONC 29.5 g/dl (31.0-37.0); MEAN PLATELET VOLUME 11.7 fl (7.0-11.0); MONO # 1.3 (0.1-0.6); MONO % 7.4 % (1.0-6.0); RBC 3.78 10^6/uL (3.5-6.1); RED CELL DISTRIBUTION WIDTH 15.9 % (11.5-14.5)
[2017-06-30 07:27] LABS: ALBUMIN 2.8 g/dL (3.0-4.8); CALCIUM 9.5 mg/dL (8.4-10.5)
--- NOTE | 2017-06-30 07:41 | PN ---
DATE: 06/30/2017 PULMONARY NOTE SUBJECTIVE: The patient is mildly short of breath this morning, but in no acute distress. She again appears very weak. OBJECTIVE VITAL SIGNS: Last temperature recorded is 98.2, pulse 84, respirations 22, blood pressure 108/71. Oxygen saturation on nasal cannula is 95% (discussed with nurse). HEENT: Normocephalic, atraumatic. NECK: Positive JVD. CARDIOVASCULAR: Systolic ejection murmur at the lower left sternal border. Positive S3 gallop. LUNGS: Decreased breath sounds at the bases with crackles. Minimal bilateral rhonchi. No wheezing. EXTREMITIES: Less edema. No cyanosis, no clubbing. Calves are nontender to palpation. GASTROINTESTINAL: Abdomen is soft, nontender and nondistended. Bowel sounds are positive. SKIN: Less erythema - both lower extremities. No rashes. NEUROLOGIC: Exam limited at the present time. PERTINENT LABORATORY DATA: Chest x-ray was repeated yesterday and reviewed. There remains persistent moderate pulmonary venous congestion, along with bilateral pleural effusions (right worse than left). Again, there may be an underlying infiltrate noted at the right lower lobe(hard to tell ). Arterial blood gas was also done yesterday. On nasal cannula, the pH is 7.36, pCO2 of 57, pO2 of 84. IMPRESSION 1. Respiratory failure. 2. Acute congestive heart failure. 3. Chronic obstructive pulmonary disease. 4. Rule out pneumonia - right lower lobe. 5. Pulmonary hypertension. 6. Renal insufficiency. PLAN: The patient appears very weak this morning. She is mildly short of breath, but in no acute distress. I did discuss the case with the night nurse at length. The night nurse stated that the patient continues to refuse her BiPAP, as well as refuse some of her nebulizer treatments. I did discuss these issues with the patient again at length this morning. I did review the chest x-ray as above. On the chest x-ray, there remains considerable pulmonary venous congestion with bilateral pleural effusions. Again, there is also a possible underlying right lower lobe infiltrate. The patient remains on low-dose intravenous Lasix. The patient also remains on antibiotic therapy - as per Infectious Disease. On physical exam, there is less bronchospasm noted. I will continue with the nebulizers treatments on a scheduled basis. Clinical status of the patient is certainly improved - compared to the initial presentation. However, again, her overall status/prognosis remains very guarded at best/poor. I will discuss the above with Dr. Pelaez later this morning. The patient is now on the Transitional Unit where she will hopefully participate with Physical Therapy. Los Jose MD MTDD
--- NOTE | 2017-06-30 07:47 | PN ---
DATE: SUBJECTIVE: The patient has no complaints of any chest pain. No shortness of breath, no headaches. The initial H and P was reviewed by me. PHYSICAL EXAMINATION VITAL SIGNS: Temperature is 98.2, pulse of 84, blood pressure is 108/71, respirations 22. GENERAL: The patient is lying in bed, flat, comfortable. HEENT: No oral lesion. Anicteric sclerae. Moist mucosa. NECK: No JVD, adenopathy, or thyromegaly. CARDIOVASCULAR: S1 and S2, regular. No murmurs, rubs, or gallops. LUNGS: Clear to auscultation bilaterally. No wheeze, rales, or rhonchi. ABDOMEN: Bowel sounds are positive. Soft, nontender and nondistended. EXTREMITIES: No cyanosis, clubbing or edema. ASSESSMENT 1. Viral syndrome secondary to flu. 2. Sacral pressure ulcer. 3. Diabetes type 2. 4. Hypertension. 5. Methicillin-resistant Staphylococcus aureus of vaginal boil. 6. Chronic kidney disease, stage III. 9. Pulmonary hypertension. 10. Venous stasis ulcer of the right leg. 11. Do not resuscitate/do not intubate. PLAN: The patient is currently comfortable, is on the Transitional Care Unit for rehab. The patient is on doxycycline for antibiotics. She is currently on iron replacement. She is on Eliquis for her anticoagulation. She is on insulin and Levemir for her diabetes. She is going to continue her Lipitor for dyslipidemia. She is on cefepime for antibiotics. She is receiving linezolid. She is being followed by Infectious Disease and Surgery. She is going to get physical therapy. She is going to continue as DNR. Darvin Pelaez MD
[2017-06-30] MEDS: Levalbuterol 1.25 MG/3 ML Inhal Soln UD IH SCH ×3 (08:20→20:29)
[2017-06-30] MEDS: Potassium Chloride 20 mEq ER Tab PO SCH (10:34)
[2017-06-30] MEDS: BISOPROLOL 10 MG PO SCH (10:38)
--- NOTE | 2017-06-30 12:07 | CP.PCM.PN ---
<Brian Chaparro - Last Filed: 06/30/17 13:42> Subjective - Date & Time of Evaluation Date of Evaluation: 06/30/17 Time of Evaluation: 13:42 - Subjective Subjective: Podiatry Progress Note - Dr. Camacho 82 year old female patient PMHx of DM, HTN, pulmonary HTN, chronic CHF, atrial fibrillation seen and evaluated at bedside for bilateral LE chronic venous stasis with ulceration to right leg. Patient is more awake and off the BiPaP during visitation. Patient reports that she could not sleep last night. Daughter reports that mother refused the BiPap last night. She denies nausea, fever, vomiting, chest pains or chills. Objective - Vital Signs/Intake and Output Vital Signs (last 24 hours): Temp Pulse Resp BP Pulse Ox 98.2 F 84 22 128/71 06/30/17 00:04 06/30/17 08:23 06/30/17 00:04 06/30/17 10:37 Intake and Output: 06/30/17 06/30/17 06:59 18:59 Intake Total 120 Balance 120 - Medications Medications: Current Medications Acetaminophen (Tylenol 325mg Tab) 650 mg PO Q4H PRN; Protocol PRN Reason: Fever >100.4 F Apixaban (Eliquis) 2.5 mg PO BID VERENA PRN Reason: Protocol Last Admin: 06/30/17 10:35 Dose: 2.5 mg Aspirin (Aspirin Chewable) 81 mg PO 0800 VERENA PRN Reason: Protocol Last Admin: 06/30/17 10:35 Dose: 81 mg Atorvastatin Calcium (Lipitor) 80 mg PO DIN VERENA PRN Reason: Protocol Ferrous Sulfate (Feosol) 324 mg PO DAILY VERENA Last Admin: 06/30/17 10:35 Dose: 324 mg Furosemide (Lasix) 20 mg IVP DAILY VERENA PRN Reason: Protocol Last Admin: 06/30/17 10:37 Dose: 20 mg Doxycycline Hyclate 100 mg/ (Sodium Chloride) 100 mls @ 100 mls/hr IVPB 0600, 1800 VERENA PRN Reason: Protocol Last Admin: 06/30/17 05:44 Dose: 100 mls/hr Cefepime HCl (Maxipime 1gm) 1 gm in 100 mls @ 100 mls/hr IVPB 0600 VERENA PRN Reason: Protocol Last Admin: 06/30/17 05:43 Dose: 100 mls/hr Insulin Detemir (Levemir) 15 unit SC ACBHS [facility] PRN Reason: Protocol Last Admin: 06/30/17 06:47 Dose: Not Given Insulin Human Regular (Humulin R Med) 0 units SC ACHS [facility] PRN Reason: Protocol Last Admin: 06/30/17 11:44 Dose: Not Given Levalbuterol HCl (Xopenex) 1.25 mg IH [id number] [facility] Last Admin: 06/30/17 08:20 Dose: 1.25 mg Bisoprolol [Zebeta] (10 Mg) 10 mg PO DAILY [facility] Last Admin: 06/30/17 10:38 Dose: 10 mg Pantoprazole Sodium (Protonix Ec Tab) 40 mg PO 0600 [facility] PRN Reason: Protocol Last Admin: 06/30/17 05:44 Dose: 40 mg Potassium Chloride (K-Dur 20 Meq Er Tab) 20 meq PO 0800 [facility] PRN Reason: Protocol Last Admin: 06/30/17 10:34 Dose: 20 meq - Labs Labs: 06/30/17 06:30 06/30/17 06:30 - Constitutional Appears: Well, Non-toxic, No Acute Distress - Extremities Exam Extremities Exam: absent: Calf Tenderness Additional comments: Vasc: DP and PT nonpalpable secondary to edema b/l. CFT <3 seconds to all digits x10. Temperature graduent warm to warm. +1 pitting edema to bilateral lower extremities. Neuro: Gross sensation diminished bilaterally. Derm: Superficial ulceration noted to anterior aspect of right leg - noted to have a mixed fibrogranular base and mild erythema periwound; mild serosanguinous drainage noted; no purulence, fluctuance, malodor, undermining, noted. Venous stasis dermatitis present bilaterally. Ulceration noted to posterior aspect of left heel. Drainage has improved. Less drainage noted today. Ortho: No pain on palpation bilateral lower extremities. - Neurological Exam Neurological Exam: Alert, Awake, Oriented x3 - Psychiatric Exam Psychiatric exam: Normal Affect, Normal Mood Assessment and Plan - Assessment and Plan (Free Text) Assessment: 82F with venous stasis ulceration right leg and bilateral lower extremity edema- stable Plan: Patient seen and evaluated with attending Afebrile, WBC 18 Continue abx per ID - Zyvox, Doxycycline, & Cefepime Clean ulceration and LE with saline solution and dressed with gauze and optifoam Wounds appear to be stable at this time C/w Multipodus boots- to be worn at all times while in bed Podiatry will continue to follow while patient in house <Vahid Camacho - Last Filed: 06/30/17 16:22> Objective - Vital Signs/Intake and Output Vital Signs (last 24 hours): Temp Pulse Resp BP Pulse Ox 98.2 F 102 H 22 128/71 98 06/30/17 00:04 06/30/17 13:11 06/30/17 00:04 06/30/17 10:37 06/30/17 13:11 Intake and Output: 06/30/17 06/30/17 06:59 18:59 Intake Total 120 Balance 120 - Medications Medications: Current Medications Acetaminophen (Tylenol 325mg Tab) 650 mg PO Q4H PRN; Protocol PRN Reason: Fever >100.4 F Apixaban (Eliquis) 2.5 mg PO BID VERENA PRN Reason: Protocol Last Admin: 06/30/17 10:35 Dose: 2.5 mg Aspirin (Aspirin Chewable) 81 mg PO 0800 VERENA PRN Reason: Protocol Last Admin: 06/30/17 10:35 Dose: 81 mg Atorvastatin Calcium (Lipitor) 80 mg PO DIN VERENA PRN Reason: Protocol Ferrous Sulfate (Feosol) 324 mg PO DAILY [facility] Last Admin: 06/30/17 10:35 Dose: 324 mg Furosemide (Lasix) 20 mg IVP DAILY VERENA PRN Reason: Protocol Last Admin: 06/30/17 10:37 Dose: 20 mg Doxycycline Hyclate 100 mg/ (Sodium Chloride) 100 mls @ 100 mls/hr IVPB 0600, 1800 VERENA PRN Reason: Protocol Last Admin: 06/30/17 05:44 Dose: 100 mls/hr Cefepime HCl (Maxipime 1gm) 1 gm in 100 mls @ 100 mls/hr IVPB 0600 VERENA PRN Reason: Protocol Last Admin: 06/30/17 05:43 Dose: 100 mls/hr Insulin Detemir (Levemir) 15 unit SC ACBHS [facility] PRN Reason: Protocol Last Admin: 06/30/17 06:47 Dose: Not Given Insulin Human Regular (Humulin R Med) 0 units SC ACHS [facility] PRN Reason: Protocol Last Admin: 06/30/17 11:44 Dose: Not Given Levalbuterol HCl (Xopenex) 1.25 mg IH [id number] [facility] Last Admin: 06/30/17 13:16 Dose: 1.25 mg Bisoprolol [Zebeta] (10 Mg) 10 mg PO DAILY VERENA Last Admin: 06/30/17 10:38 Dose: 10 mg Pantoprazole Sodium (Protonix Ec Tab) 40 mg PO 0600 [facility]ERENA PRN Reason: Protocol Last Admin: 06/30/17 05:44 Dose: 40 mg Potassium Chloride (K-Dur 20 Meq Er Tab) 20 meq PO 0800 [facility]ERE[facility] PRN Reason: Protocol Last Admin: 06/30/17 10:34 Dose: 20 meq - Labs Labs: 06/30/17 06:30 06/30/17 06:30 Attending/Attestation - Attestation I have personally seen and examined this patient.: Yes I have fully participated in the care of the patient.: Yes I have reviewed all pertinent clinical information, including history, physical exam and plan: Yes
--- NOTE | 2017-06-30 21:58 | PN ---
DATE: 06/30/2017 SUBJECTIVE: Patient is in bed, in no acute distress, nontoxic. No fevers. PHYSICAL EXAMINATION: VITAL SIGNS: Temperature is 98, blood pressure is 120/70, respiratory rate of 18. HEENT: Unremarkable. NECK: Supple. LUNGS: Have decreased breath sounds. HEART: Normal S1, S2. ABDOMEN: Soft, nontender. LABORATORY EXAMINATION: Reveals the patient's white count is 18,000, hemoglobin of 10 and platelets of 224. BUN of 53, creatinine of 2.5. Microbiology is noted and review of orders are noted. ASSESSMENT AND PLAN: This is an 82-year-old with systemic inflammatory response syndrome due to a systemic viral illness with influenza on top of acute congestive heart failure and probable healthcare-associated pneumonia with a left groin skin and skin soft tissue infection and vulvar abscess with methicillin-resistant staphylococcus aureus, diabetes and hypertension, pulmonary hypertension, on cefepime, doxycycline day #7 and Zyvox with elevated procalcitonin, completed [address] Messer's note from this morning is reviewed. methicillin-resistant staphylococcus aureus from the vulva culture is noted, sensitive to tetracycline and doxycycline, relatively sensitive methicillin-resistant staphylococcus aureus . Chago Hilliard MD
[2017-07-01] MEDS: Levalbuterol 1.25 MG/3 ML Inhal Soln UD IH SCH ×4 (01:24→20:55)
--- NOTE | 2017-07-01 02:11 | CON ---
DATE: 06/30/2017 LOCATION: The patient was seen earlier this morning in room 317. CHIEF COMPLAINT: Weakness times several days. HISTORY OF PRESENT ILLNESS: This is an 82-year-old female with past medical history of pulmonary hypertension, congestive heart failure, diabetes, hypertension, who is admitted with acute congestive heart failure with SIRS and with systemic viral illness with influenza. The patient is now transferred to transitional care. REVIEW OF SYSTEMS: Reveals the patient has no fevers and chills. No chest pain. There is mild shortness of breath. No headaches or blurry vision. PAST MEDICAL HISTORY: Significant for pulmonary hypertension, congestive heart failure, diabetes and hypertension. PAST SURGICAL HISTORY: Significant for carpal tunnel surgery, bilateral cataract surgery, and cholecystectomy. ALLERGIES: THE PATIENT HAS NO KNOWN ALLERGIES. PHYSICAL EXAMINATION: VITAL SIGNS: Temperature is 98, blood pressure is 120/70, respiratory rate of 18, heart rate of 84. HEENT: Unremarkable. NECK: Supple. LUNGS: Decreased breath sounds. HEART: Normal S1, S2. ABDOMEN: Soft, nontender. LABORATORY EXAMINATION: Reveals a white count of 18,000, hemoglobin of 10, creatinine is 2.5, procalcitonin is 0.78. Serology reveals influenza positive. Vulva culture is positive for MRSA. ASSESSMENT AND PLAN: This is an 82-year-old female with sepsis with influenza on top of acute congestive heart failure, treated with 5 days of Tamiflu. The patient has received cefepime and doxycycline of 7 days. We will make further recommendations. Overall, patient is weak. If able, change to p.o. doxycycline and cefepime. Will be discontinued in the next 24 hours. Patient has completed the Tamiflu therapy. We will follow closely with you. Chago Hilliard MD
[2017-07-01] MEDS: Cefepime 1gm in NS 100ml 1 GM/100 ML BAG IVPB SCH (05:09)
[2017-07-01] MEDS: Pantoprazole 40 mg EC Tab PO SCH (05:10)
[2017-07-01 06:59] LABS: HEMOGLOBIN 9.6 g/dL (12.0-16.0); MEAN CELL VOLUME 92.4 fl (80.0-105.0); MEAN CORPUSCULAR HEMOGLOBIN 28.2 pg (25.0-35.0); MEAN CORPUSCULAR HGB CONC 30.5 g/dl (31.0-37.0); MEAN PLATELET VOLUME 12.1 fl (7.0-11.0); RBC 3.41 10^6/uL (3.5-6.1); WHITE BLOOD COUNT 16.6 10^3/ul (4.5-11.0)
[2017-07-01 07:04] LABS: ALBUMIN 2.7 g/dL (3.0-4.8); CALCIUM 9.4 mg/dL (8.4-10.5)
[2017-07-01] MEDS: Insulin Reg-MEDIUM-Coverage SC SCH ×4 (07:45→22:39)
[2017-07-01] MEDS: Insulin Detemir 100 units/ml Vial (Levemir) SC SCH ×2 (07:48→22:39)
[2017-07-01] MEDS: Potassium Chloride 20 mEq ER Tab PO SCH (08:06)
[2017-07-01] MEDS: BISOPROLOL 10 MG PO SCH (10:01)
--- NOTE | 2017-07-01 11:57 | PN ---
DATE: 07/01/2017 PULMONARY NOTE SUBJECTIVE: The patient appears comfortable this morning. She is mildly short of breath, but in no acute distress. She appears a little less weak. OBJECTIVE VITAL SIGNS: Temperature is 98.1, pulse 80, respiratory rate 18/20, blood pressure 100/64. Last oxygen saturation noted - on nasal cannula - 97%. HEENT: Normocephalic, atraumatic. NECK: Positive JVD. CARDIOVASCULAR: Systolic ejection murmur at the lower left sternal border. Positive S3 gallop. LUNGS: Decreased breath sounds at the bases with crackles. Less rhonchi. No wheezing. EXTREMITIES: Less edema. No cyanosis, no clubbing. Calves are nontender to palpation. GASTROINTESTINAL: Abdomen is soft, nontender and nondistended. Bowel sounds are positive. SKIN: Less erythema - both lower extremities. No rashes. NEUROLOGIC: Exam limited at the present time. IMPRESSION 1. Respiratory failure. 2. Acute congestive heart failure. 3. Chronic obstructive pulmonary disease. 4. Rule out pneumonia - right lower lobe. 5. Pulmonary hypertension. 6. Renal insufficiency. PLAN: The patient appears comfortable this morning. She is mildly short of breath, but in no acute distress. She does appear a little less weak this morning. I did discuss the case with the night nurse at length. The night nurse informed me that the patient did wear her BiPAP most of the night. On physical exam, there is less bronchospasm noted. In addition, the alveolar-arterial gradient is also less. I will continue with the current nebulizer treatments for now. The patient remains on antibiotic therapy - as per Infectious Disease. There are no temperatures noted. There was a leukocytosis seen on yesterday's labs. Flow cytometry is ordered. The patient also remains on intravenous Lasix. I would continue with the Cardiology evaluation. Clinical status of the patient is definitely improved - compared to the initial presentation. However, again, unfortunately, the future status/prognosis of this elderly patient remains poor. All are aware. I will discuss the above with Dr. Pelaez. [place] MD RODOLFO
--- NOTE | 2017-07-01 11:59 | CP.PCM.PN ---
Subjective - Date & Time of Evaluation Date of Evaluation: 07/01/17 Time of Evaluation: 11:40 - Subjective Subjective: Podiatry Progress Note - Dr. Jones 82 year old female patient PMHx of DM, HTN, pulmonary HTN, chronic CHF, atrial fibrillation seen and evaluated at bedside for bilateral LE chronic venous stasis with ulceration to right leg. Patient is awake and alert. Daughter was at bedside visitation. She denies nausea, fever, vomiting, chest pains or chills. Objective - Vital Signs/Intake and Output Vital Signs (last 24 hours): Temp Pulse Resp BP Pulse Ox 98.1 F 80 18 118/68 97 06/30/17 16:00 07/01/17 01:25 06/30/17 16:00 07/01/17 10:02 06/30/17 16:00 Intake and Output: 07/01/17 07/01/17 06:59 18:59 Intake Total 0 Output Total 300 Balance -300 - Medications Medications: Current Medications Acetaminophen (Tylenol 325mg Tab) 650 mg PO Q4H PRN; Protocol PRN Reason: Fever >100.4 F Apixaban (Eliquis) 2.5 mg PO BID VERENA PRN Reason: Protocol Last Admin: 07/01/17 10:02 Dose: 2.5 mg Aspirin (Aspirin Chewable) 81 mg PO 0800 VERENA PRN Reason: Protocol Last Admin: 07/01/17 08:06 Dose: 81 mg Atorvastatin Calcium (Lipitor) 80 mg PO DIN VERENA PRN Reason: Protocol Last Admin: 06/30/17 18:05 Dose: 80 mg Doxycycline Hyclate (Doryx) 100 mg PO 0600,1800 VERENA Ferrous Sulfate (Feosol) 324 mg PO DAILY [facility] Last Admin: 07/01/17 10:02 Dose: 324 mg Furosemide (Lasix) 20 mg IVP DAILY [facility]ERE[facility] PRN Reason: Protocol Last Admin: 07/01/17 10:02 Dose: 20 mg Cefepime HCl (Maxipime 1gm) 1 gm in 100 mls @ 100 mls/hr IVPB 0600 [facility] PRN Reason: Protocol Last Admin: 07/01/17 05:09 Dose: 100 mls/hr Insulin Detemir (Levemir) 15 unit SC ACBHS [facility] PRN Reason: Protocol Last Admin: 07/01/17 07:48 Dose: Not Given Insulin Human Regular (Humulin R Med) 0 units SC ACHS [facility] PRN Reason: Protocol Last Admin: 07/01/17 07:45 Dose: 1 units Levalbuterol HCl (Xopenex) 1.25 mg IH [id number] [facility] Last Admin: 07/01/17 07:22 Dose: 1.25 mg Bisoprolol [Zebeta] (10 Mg) 10 mg PO DAILY [facility] Last Admin: 07/01/17 10:01 Dose: 10 mg Pantoprazole Sodium (Protonix Ec Tab) 40 mg PO 0600 [facility] PRN Reason: Protocol Last Admin: 07/01/17 05:10 Dose: 40 mg Potassium Chloride (K-Dur 20 Meq Er Tab) 20 meq PO 0800 [facility] PRN Reason: Protocol Last Admin: 07/01/17 08:06 Dose: 20 meq - Labs Labs: 07/01/17 06:30 07/01/17 06:30 - Constitutional Appears: Well, Non-toxic, No Acute Distress - Extremities Exam Extremities Exam: absent: Calf Tenderness Additional comments: Vasc: DP and PT nonpalpable secondary to edema b/l. CFT <3 seconds to all digits x10. Temperature graduent warm to warm. +1 pitting edema to bilateral lower extremities. Neuro: Gross sensation diminished bilaterally. Derm: Superficial ulceration noted to anterior aspect of right leg - noted to have a mixed fibrogranular base and mild erythema periwound; mild serosanguinous drainage noted; no purulence, fluctuance, malodor, undermining, noted. Venous stasis dermatitis present bilaterally. Ulceration noted to posterior aspect of left heel. Drainage has improved. Less drainage noted today. Ortho: No pain on palpation bilateral lower extremities. Assessment and Plan - Assessment and Plan (Free Text) Assessment: 82F with venous stasis ulceration right leg and bilateral lower extremity edema- stable Plan: Patient seen and evaluated with attending Afebrile, WBC 16.6 Continue abx per ID - Zyvox, Doxycycline, & Cefepime Clean ulceration and LE with saline solution and dressed with gauze and optifoam Wounds appear to be stable at this time C/w Multipodus boots- to be worn at all times while in bed Podiatry will continue to follow while patient in house
--- NOTE | 2017-07-01 20:43 | PN ---
DATE: 07/01/2017 SUBJECTIVE: The patient has no complaints of any chest pain. No shortness of breath, no headaches. PHYSICAL EXAMINATION: VITAL SIGNS: Temperature is 97.5, pulse of 116, blood pressure is 118/68, respirations 16. GENERAL: The patient is lying in bed, flat, comfortable. HEENT: No oral lesion. Anicteric sclerae. Moist mucosa. NECK: No JVD, adenopathy, or thyromegaly. CARDIOVASCULAR: S1 and S2, regular. No murmurs, rubs, or gallops. LUNGS: Clear to auscultation bilaterally. No wheeze, rales, or rhonchi. ABDOMEN: Bowel sounds are positive, soft, nontender and nondistended. EXTREMITIES: No cyanosis, clubbing or edema. LABORATORY DATA: White count of 16.6, hemoglobin is 9.6. Creatinine is 2.9. ASSESSMENT: 1. Viral syndrome secondary to flu. 2. Sacral pressure ulcer. 3. Diabetes type 2. 4. Hypertension. 5. Methicillin-resistant Staphylococcus aureus of vaginal boil. 6. Chronic kidney disease, stage IV. 7. Pulmonary hypertension. 8. Venous stasis ulcers of the right leg. 9. Do not resuscitate/do not intubate. PLAN: The patient is on aspirin. She is going to continue on doxycycline for antibiotics. She is on apixaban for anticoagulation. She is on potassium. The patient is on Lasix daily. I am going to change her Lasix to p.o. I have ordered flow cytology to see if she has underlying CLL as she continues to have leukocytosis. The patient is on Levemir for diabetes and Lipitor for dyslipidemia. She is on Xopenex. I will put her on Xopenex b.i.d. Her kidney function is stable. Darvin Pelaez MD
--- NOTE | 2017-07-01 23:55 | PN ---
DATE: 07/01/2017 SUBJECTIVE: The patient is in bed, in no acute distress, nontoxic. The patient was seen earlier this morning in room 317. PHYSICAL EXAMINATION: VITAL SIGNS: Temperature is 97, blood pressure is 118/ . HEENT: Unremarkable. NECK: Supple. LUNGS: Have decreased breath sounds. HEART: Normal S1, S2. ABDOMEN: Soft, nontender. LABORATORY EXAMINATION: Reveals white count of 16,600, hemoglobin of 9 and platelets of 209. Chemistries reveal BUN of 50, creatinine of 2.9. ASSESSMENT AND PLAN: This is an 82-year-old female who was seen earlier this morning in room 317 and was admitted to acute care with sepsis, with influenza on top of acute congestive heart failure which was treated with 5 days of Tamiflu and received Cefepime and doxycycline for 7 days. We will discontinue the doxycycline and the Cefepime. The patient has adequate antibiotic therapy. We will follow closely with you. Chago Hilliard MD
[2017-07-02] MEDS: Pantoprazole 40 mg EC Tab PO SCH (06:34)
[2017-07-02] MEDS: Insulin Reg-MEDIUM-Coverage SC SCH ×4 (07:06→21:41)
--- NOTE | 2017-07-02 07:13 | PN ---
DATE: 07/02/2017 PULMONARY NOTE SUBJECTIVE: The patient does appear comfortable this morning. She is more awake and alert. She is not short of breath at rest. She is wearing her BiPAP. PHYSICAL EXAMINATION: VITAL SIGNS: Last temperature recorded is 97.1, pulse 90, respirations 18, last blood pressure recorded 118/68. Oxygen saturation on BiPAP is 97-98%. HEENT: Normocephalic, atraumatic. Positive JVD. CARDIOVASCULAR: Systolic ejection murmur at the lower left sternal border. Positive S3 gallop. LUNGS: Decreased breath sounds at the bases with crackles. Minimal/less rhonchi. No wheezing. EXTREMITIES: Less edema. No cyanosis. No clubbing. Calves are nontender to palpation. GI: Abdomen is soft, nontender and nondistended. Bowel sounds are positive. SKIN: Less erythema - both lower extremities. No rashes. NEUROLOGIC: Limited at the present time. IMPRESSION: 1. Respiratory failure. 2. Acute congestive heart failure. 3. Chronic obstructive pulmonary disease. 4. Rule out pneumonia - right lower lobe. 5. Pulmonary hypertension. 6. Renal insufficiency. PLAN: The patient appears more comfortable this morning. She is not short of breath at rest. She appears more awake and alert. She is wearing her BiPAP. I did discuss the case with the night nurse at length. The night nurse stated that the patient did wear her BiPAP last night. I was certainly happy with this news. On physical exam, there is less bronchospasm noted. In addition, the alveolar-arterial gradient is also less. I will continue with the current nebulizer treatments for now. The lasix has been changed to 40 mg orally daily by Dr. Pelaez. Input by Infectious Disease (Dr. Hilliard) is also noted. Clinical status of the patient is certainly improved - compared to the initial presentation. However, unfortunately, the future status/prognosis for this patient remains poor. I did discuss the above with Dr. Pelaez this morning. Los Jose MD RODOLFO
[2017-07-02] MEDS: Insulin Detemir 100 units/ml Vial (Levemir) SC SCH ×2 (08:09→21:41)
[2017-07-02] MEDS: BISOPROLOL 10 MG PO SCH (09:02)
[2017-07-02] MEDS: Potassium Chloride 20 mEq ER Tab PO SCH (09:02)
[2017-07-02] MEDS: Levalbuterol 1.25 MG/3 ML Inhal Soln UD IH SCH ×2 (11:02→20:38)
--- NOTE | 2017-07-02 14:04 | CP.PCM.PN ---
Subjective - Date & Time of Evaluation Date of Evaluation: 07/02/17 Time of Evaluation: 14:01 - Subjective Subjective: Podiatry Progress Note - Dr. Jones 82 year old female patient PMHx of DM, HTN, pulmonary HTN, chronic CHF, atrial fibrillation seen and evaluated at bedside for bilateral LE chronic venous stasis with ulceration to right leg. Patient is awake and alert. Patient reports her shortness has improved. Still SOB. Daughter reports mother refuses BiPAP at night. She denies nausea, fever, vomiting, chest pains or chills. Objective - Vital Signs/Intake and Output Vital Signs (last 24 hours): Temp Pulse Resp BP Pulse Ox 98.1 F 74 20 132/74 90 L 07/02/17 11:44 07/02/17 11:44 07/02/17 11:44 07/02/17 11:44 07/02/17 11:44 Intake and Output: 07/02/17 07/02/17 06:59 18:59 Intake Total 180 Balance 180 - Medications Medications: Current Medications Acetaminophen (Tylenol 325mg Tab) 650 mg PO Q4H PRN; Protocol PRN Reason: Fever >100.4 F Apixaban (Eliquis) 2.5 mg PO BID [facility] PRN Reason: Protocol Last Admin: 07/02/17 09:03 Dose: 2.5 mg Aspirin (Aspirin Chewable) 81 mg PO 0800 [facility] PRN Reason: Protocol Last Admin: 07/02/17 09:01 Dose: 81 mg Atorvastatin Calcium (Lipitor) 80 mg PO DIN [facility] PRN Reason: Protocol Last Admin: 07/01/17 17:47 Dose: 80 mg Ferrous Sulfate (Feosol) 324 mg PO DAILY [facility] Last Admin: 07/02/17 09:03 Dose: 324 mg Furosemide (Lasix) 40 mg PO DAILY [facility] Last Admin: 07/02/17 09:02 Dose: 40 mg Insulin Detemir (Levemir) 15 unit SC ACBHS [facility] PRN Reason: Protocol Last Admin: 07/02/17 08:09 Dose: 15 unit Insulin Human Regular (Humulin R Med) 0 units SC ACHS [facility] PRN Reason: Protocol Last Admin: 07/02/17 13:56 Dose: 1 units Levalbuterol HCl (Xopenex) 1.25 mg IH BID [facility] Last Admin: 07/02/17 11:02 Dose: 1.25 mg Bisoprolol [Zebeta] (10 Mg) 10 mg PO DAILY [facility] Last Admin: 07/02/17 09:02 Dose: 10 mg Pantoprazole Sodium (Protonix Ec Tab) 40 mg PO 0600 [facility] PRN Reason: Protocol Last Admin: 07/02/17 06:34 Dose: 40 mg Potassium Chloride (K-Dur 20 Meq Er Tab) 20 meq PO 0800 [facility] PRN Reason: Protocol Last Admin: 07/02/17 09:02 Dose: 20 meq - Labs Labs: 07/01/17 06:30 07/01/17 06:30 - Constitutional Appears: Well, Non-toxic, No Acute Distress - Extremities Exam Extremities Exam: absent: Calf Tenderness Additional comments: Vasc: DP and PT nonpalpable secondary to edema b/l. CFT <3 seconds to all digits x10. Temperature graduent warm to warm. +1 pitting edema to bilateral lower extremities. Neuro: Gross sensation diminished bilaterally. Derm: Superficial ulceration noted to anterior aspect of right leg - noted to have a mixed fibrogranular base and mild erythema periwound; mild serosanguinous drainage noted; no purulence, fluctuance, malodor, undermining, noted. Venous stasis dermatitis present bilaterally. Ulceration noted to posterior aspect of left heel. Drainage has improved. Less drainage noted today. Ortho: No pain on palpation bilateral lower extremities. - Neurological Exam Neurological Exam: Alert, Awake, Oriented x3 Assessment and Plan - Assessment and Plan (Free Text) Assessment: 82F with venous stasis ulceration right leg and bilateral lower extremity edema- stable Plan: Patient seen and evaluated with attending Afebrile, WBC 16.6 on 07/01/17 Continue abx per ID - Zyvox, Doxycycline, & Cefepime Clean ulceration and LE with saline solution and dressed with gauze and optifoam Wounds appear to be stable at this time C/w Multipodus boots- to be worn at all times while in bed Podiatry will continue to follow while patient in house
--- NOTE | 2017-07-02 21:22 | PN ---
DATE: SUBJECTIVE: Patient is in bed, in no acute distress, nontoxic. PHYSICAL EXAMINATION: VITAL SIGNS: Temperature is 98, blood pressure is 130/70, respiratory rate 20, heart rate of 74. HEENT: Unremarkable. NECK: Supple. LUNGS: Have decreased breath sounds. HEART: Normal S1, S2. ABDOMEN: Soft, nontender. LABORATORY DATA: Reveals a white count of 16,600, hemoglobin of 9, and platelets of 209. Chemistries reveal a BUN of 58, creatinine of 2.9. ASSESSMENT AND PLAN: This is an 82-year-old female who was seen early this morning in [facility], initially admitted to the acute care with diagnosis of sepsis with influenza on top of acute congestive heart failure and treated with 5 days of Tamiflu, had received 7 days of cefepime and doxycycline. Currently, patient is off of antibiotics and review of orders confirm the patient to be off of antibiotics. Patient is at risk for developing nosocomial infections. Dr. Jose's progress note from this morning is noted. Lodging House Keeper's note is reviewed, venous stasis ulceration of right leg with stable edema. Chago Hilliard MD
[2017-07-03 06:21] LABS: HEMOGLOBIN 10.4 g/dL (12.0-16.0); MEAN CELL VOLUME 93.9 fl (80.0-105.0); MEAN CORPUSCULAR HEMOGLOBIN 27.7 pg (25.0-35.0); MEAN CORPUSCULAR HGB CONC 29.5 g/dl (31.0-37.0); MEAN PLATELET VOLUME 12.3 fl (7.0-11.0); RBC 3.76 10^6/uL (3.5-6.1); RED CELL DISTRIBUTION WIDTH 16.1 % (11.5-14.5)
[2017-07-03] MEDS: Insulin Reg-MEDIUM-Coverage SC SCH ×4 (06:39→22:27)
[2017-07-03] MEDS: Pantoprazole 40 mg EC Tab PO SCH (06:40)
[2017-07-03] MEDS: Insulin Detemir 100 units/ml Vial (Levemir) SC SCH ×2 (06:40→22:28)
[2017-07-03 07:15] LABS: ALB/GLOB RATIO 1.1 (1.1-1.8); CALCIUM 9.8 mg/dL (8.4-10.5)
[2017-07-03] MEDS ORDERED: Sod Polystyrene Sulf 15 gm/60 ml Susp PO ONE (07:43)
--- NOTE | 2017-07-03 08:21 | PN ---
DATE: 07/03/2017 PULMONARY NOTE SUBJECTIVE: The patient appears very weak and tired this morning. She is mildly short of breath, but in no acute distress. PHYSICAL EXAMINATION VITAL SIGNS: Last temperature recorded is 99.1, pulse 83, respirations 20/22, blood pressure 118/78. Oxygen saturation on nasal cannula is 94%. HEENT: Normocephalic, atraumatic. Positive JVD. CARDIOVASCULAR: Systolic ejection murmur at the lower left sternal border. Positive S3 gallop. LUNGS: Decreased breath sounds at the bases with crackles. Minimal bilateral rhonchi. No wheezing. EXTREMITIES: Less edema. No cyanosis, no clubbing. Calves are nontender to palpation. GI: Abdomen is soft, nontender and nondistended. Bowel sounds are positive. SKIN: Less erythema - both lower extremities. No rashes. NEUROLOGIC: Limited at the present time. IMPRESSION: 1. Respiratory failure. 2. Acute congestive heart failure. 3. Chronic obstructive pulmonary disease. 4. Rule out pneumonia - right lower lobe. 5. Pulmonary hypertension. 6. Renal insufficiency. PLAN: The patient appears very weak this morning. She is also mildly short of breath. She is in no acute distress. I did discuss the case with the night nurse at length. Apparently, again, the patient refused her BiPAP during the night. There is a clear, significant difference in the patient's morning status - when/if she wears her BiPAP during the night. I did discuss this issue with the patient again this morning. Family is well aware of the above. On physical exam, there is no significant bronchospasm noted. I will continue the current nebulizer treatments for now. I will also continue with the aspiration precautions. Again, we will try to encourage her to use the BiPAP at night. Inputs by Infectious Disease and Podiatry are noted. Clinical status of the patient is certainly improved - compared to the initial presentation. However, again, the future status/prognosis for this patient remains poor. I will discuss the above with Dr. Pelaez. Los Jose MD RODOLFO
[2017-07-03] MEDS: Sodium Chloride 0.9% 500 ML IV SCH ×2 (08:43→14:51)
[2017-07-03] MEDS: Levalbuterol 1.25 MG/3 ML Inhal Soln UD IH SCH ×2 (09:07→20:04)
[2017-07-03] MEDS: BISOPROLOL 10 MG PO SCH (09:57)
--- NOTE | 2017-07-03 12:00 | PN ---
DATE: SUBJECTIVE: The patient has no complaints of any chest pain. No shortness of breath. No headaches or dizziness. She refused her BiPAP yesterday. She is bit drowsy this morning. PHYSICAL EXAMINATION: VITAL SIGNS: Temperature is 99.1, pulse of 83, blood pressure is 118/78, respirations 20. GENERAL: The patient is lying in bed, flat, comfortable. HEENT: No oral lesion. Anicteric sclerae. Moist mucosa. NECK: No JVD, adenopathy, or thyromegaly. CARDIOVASCULAR: S1 and S2, regular. No murmurs, rubs, or gallops. LUNGS: Clear to auscultation bilaterally. No wheeze, rales, or rhonchi. ABDOMEN: Bowel sounds are positive, soft, nontender and nondistended. EXTREMITIES: No cyanosis, clubbing or edema. LABORATORY DATA: White count of 18, hemoglobin is 10.4. Creatinine is 3.8. Potassium is 5.7. ASSESSMENT: 1. Hypokalemia. 2. Acute kidney injury with chronic kidney disease stage 4. 3. Sacral pressure ulcer. 4. Diabetes type 2. 5. Hypertension. 6. Methicillin-resistant Staphylococcus aureus vaginal boil. 7. Pulmonary hypertension. 8. Venous stasis ulcer of the right leg. 9. Do not resuscitate/do not intubate. PLAN: Now, the patient's flow cytometry was negative. The patient continues to have an elevated white count. The patient's creatinine has increased significantly. The patient is on diabetic therapy and will discontinue the patient's diuretic therapy. The patient is also on potassium. I will discontinue the patient's potassium. I will give the patient IV fluids. She is on Lipitor for dyslipidemia. She is on Protonix. We will also give Kayexalate. We will repeat her blood work tomorrow. Darvin Pelaez MD
--- NOTE | 2017-07-03 12:22 | CP.PCM.CON ---
History of Present Illness - History of Present Illness History of Present Illness: Palliative consult requested by Dr Gerardo Pelaez Reason : [place] of care 82 year old female with history of COPD who was recently admitted to acute care with CHF/COPD exacerbation, H Flu and sepsis. The patient has since been transitioned to [facility] PMHx: COPD, A Fib on Eliquis, CHF, DM, lower extremity celulitis, peripheral neuropathy, cataracts Social History: Former smoker, no alcohol or drug use. Lives with daughter Erma Rolon .Oxygen dependent. Family History. Non contributory Advance Care Planning: The patient has an Advanced Directive. She is DNR/DNI. Her daughter Erma is POA. Review of Systems: Dyspnea, weakness, peripheral neuropathy, 12 point review otherwise negative Past Patient History - Infectious Disease Hx of Infectious Diseases: None - Tetanus Immunizations Tetanus Immunization: Unknown - Past Medical History & Family History Past Medical History?: Yes - Past Social History Smoking Status: Former Smoker - CARDIAC Hx Cardiac Disorders: Yes Hx Congestive Heart Failure: Yes Hx Hypercholesterolemia: Yes Hx Hypertension: Yes - PULMONARY Hx Pneumonia: Yes - NEUROLOGICAL Hx Neurological Disorder: Yes (PHERIPHERAL NEUROPATHY) - HEENT Hx HEENT Problems: Yes Hx Cataracts: Yes (bilateral sx 2012) - RENAL Hx Chronic Kidney Disease: No - ENDOCRINE/METABOLIC Hx Diabetes Mellitus Type 2: Yes - HEMATOLOGICAL/ONCOLOGICAL Hx Blood Disorders: No - INTEGUMENTARY Hx Dermatological Problems: Yes Other/Comment: BILATERAL LE CELLULITIS, chronic venous stasis ulcers - MUSCULOSKELETAL/RHEUMATOLOGICAL Hx Falls: Yes - GASTROINTESTINAL Hx Gastrointestinal Disorders: Yes - GENITOURINARY/GYNECOLOGICAL Hx Urinary Tract Infection: Yes - PSYCHIATRIC Hx Depression: No Hx Emotional Abuse: No Hx Physical Abuse: No Hx Substance Use: No - SURGICAL HISTORY Hx Cholecystectomy: Yes (2013) - ANESTHESIA Hx Anesthesia: Yes Hx Anesthesia Reactions: No Hx Malignant Hyperthermia: No Meds Allergies/Adverse Reactions: Allergies Allergy/AdvReac Type Severity Reaction Status Date / Time No Known Allergies Allergy Verified 06/29/17 20:50 - Medications Medications: Current Medications Acetaminophen (Tylenol 325mg Tab) 650 mg PO Q4H PRN; Protocol PRN Reason: Fever >100.4 F Apixaban (Eliquis) 2.5 mg PO BID [facility] PRN Reason: Protocol Last Admin: 07/03/17 11:56 Dose: Not Given Aspirin (Aspirin Chewable) 81 mg PO 0800 [facility] PRN Reason: Protocol Last Admin: 07/03/17 09:57 Dose: Not Given Atorvastatin Calcium (Lipitor) 80 mg PO DIN [facility] PRN Reason: Protocol Last Admin: 07/02/17 18:00 Dose: 80 mg Ferrous Sulfate (Feosol) 324 mg PO DAILY [facility] Last Admin: 07/03/17 11:56 Dose: Not Given Sodium Chloride (Sodium Chloride 0.9%) 500 mls @ 100 mls/hr IV .Q5H [facility] Stop: 07/03/17 12:46 Last Admin: 07/03/17 08:43 Dose: 100 mls/hr Insulin Detemir (Levemir) 15 unit SC ACBHS [facility] PRN Reason: Protocol Last Admin: 07/03/17 06:40 Dose: 15 unit Insulin Human Regular (Humulin R Med) 0 units SC ACHS [facility] PRN Reason: Protocol Last Admin: 07/03/17 06:39 Dose: 1 units Levalbuterol HCl (Xopenex) 1.25 mg IH BID [facility] Last Admin: 07/03/17 09:07 Dose: 1.25 mg Bisoprolol [Zebeta] (10 Mg) 10 mg PO DAILY [facility] Last Admin: 07/03/17 09:57 Dose: Not Given Pantoprazole Sodium (Protonix Ec Tab) 40 mg PO 0600 [facility] PRN Reason: Protocol Last Admin: 07/03/17 06:40 Dose: 40 mg Physical Exam - Constitutional Appears: Chronically Ill - Head Exam Head Exam: NORMAL INSPECTION - Eye Exam Eye Exam: Normal appearance Pupil Exam: NORMAL ACCOMODATION - ENT Exam ENT Exam: Mucous Membranes Moist, Normal Oropharynx - Neck Exam Neck exam: Positive for: Normal Inspection - Respiratory Exam Respiratory Exam: Decreased Breath Sounds, Rales, Rhonchi - Cardiovascular Exam Cardiovascular Exam: Irregular Rhythm, +S1, +S2 - GI/Abdominal Exam GI & Abdominal Exam: Normal Bowel Sounds, Soft - Extremities Exam Additional comments: lower extremity edema - Neurological Exam Neurological exam: Oriented x3 - Skin Skin Exam: Dry, Pallor, Warm - Additional Findings Additional findings: palliative performance scale 30 % Results - Vital Signs Recent Vital Signs: Last Vital Signs Temp 99.1 F 07/02/17 17:23 Pulse 20 L 07/03/17 12:01 Resp 95 H 03/09/18 12:01 BP 117/64 07/03/17 12:01 Pulse Ox 94 L 07/03/17 12:01 - Labs Result Diagrams: 07/03/17 06:10 07/03/17 06:10 Labs: Laboratory Results - last 24 hr 07/02/17 07/02/17 07/03/17 16:45 21:33 05:49 WBC RBC Hgb Hct MCV MCH MCHC RDW Plt Count MPV Sodium Potassium Chloride Carbon Dioxide Anion Gap BUN Creatinine Est GFR ( Amer) Est GFR (Non-Af Amer) POC Glucose (mg/dL) 186 H 188 H 199 H Random Glucose Calcium Total Bilirubin AST ALT Alkaline Phosphatase Total Protein Albumin Globulin Albumin/Globulin Ratio 07/03/17 07/03/17 07/03/17 06:10 06:10 11:25 WBC 18.0 H RBC 3.76 Hgb 10.4 L Hct 35.3 L MCV 93.9 MCH 27.7 MCHC 29.5 L RDW 16.1 H Plt Count 256 MPV 12.3 H Sodium 135 Potassium 5.7 H* D Chloride 98 Carbon Dioxide 27 Anion Gap 16 BUN 71 H Creatinine 3.8 H Est GFR ( Amer) 14 Est GFR (Non-Af Amer) 11 POC Glucose (mg/dL) 191 H Random Glucose 205 H Calcium 9.8 Total Bilirubin 0.3 AST 22 ALT 42 Alkaline Phosphatase 155 H Total Protein 5.9 Albumin 3.0 Globulin 2.8 Albumin/Globulin Ratio 1.1 Assessment & Plan - Assessment and Plan (Free Text) Assessment: 82 year old female with history of A Fib, CHF, COPD who was admitted to acute care with COPD/CHF exacerbation, H Flu and sepsis. She is now in [facility] for completion of antibiotic therapy and deconditioning. The patient is alert, able to converse and follow command. Denies pain,remains dyspneic. The patient and family are known to me form previous admission.Daughter Erma at beside. Daughter is interested in home hsoice care. Hospice services explained in detail. Questions answered. Family to discuss hospice care this weekend and will likely meet with hospital liaison on Thursday. Psychosocial support provided. Time spent in goals of care and end of life discussion , 20 minutes Plan: Hospice evaluation Goals of care and advanced care planning. Psychosocial support
--- NOTE | 2017-07-03 16:14 | CP.PCM.PN ---
Subjective - Date & Time of Evaluation Date of Evaluation: 07/03/17 Time of Evaluation: 11:30 - Subjective Subjective: Comfortable in bed, no fevers, no diarrhea. Breathing better. Objective - Vital Signs/Intake and Output Vital Signs (last 24 hours): Temp Pulse Resp BP Pulse Ox 99.1 F 83 20 118/78 94 L 07/02/17 17:23 07/02/17 17:23 07/02/17 17:23 07/02/17 17:23 07/02/17 17:23 Intake and Output: 07/03/17 07/03/17 06:59 18:59 Intake Total 180 Output Total 250 Balance -70 - Medications Medications: Current Medications Acetaminophen (Tylenol 325mg Tab) 650 mg PO Q4H PRN; Protocol PRN Reason: Fever >100.4 F Apixaban (Eliquis) 2.5 mg PO BID [facility] PRN Reason: Protocol Last Admin: 07/02/17 17:59 Dose: 2.5 mg Aspirin (Aspirin Chewable) 81 mg PO 0800 [facility] PRN Reason: Protocol Last Admin: 07/02/17 09:01 Dose: 81 mg Atorvastatin Calcium (Lipitor) 80 mg PO DIN [facility] PRN Reason: Protocol Last Admin: 07/02/17 18:00 Dose: 80 mg Ferrous Sulfate (Feosol) 324 mg PO DAILY [facility] Last Admin: 07/02/17 09:03 Dose: 324 mg Sodium Chloride (Sodium Chloride 0.9%) 500 mls @ 100 mls/hr IV .Q5H [facility] Stop: 07/03/17 12:46 Last Admin: 07/03/17 08:43 Dose: 100 mls/hr Insulin Detemir (Levemir) 15 unit SC ACBHS [facility] PRN Reason: Protocol Last Admin: 07/03/17 06:40 Dose: 15 unit Insulin Human Regular (Humulin R Med) 0 units SC ACHS [facility] PRN Reason: Protocol Last Admin: 07/03/17 06:39 Dose: 1 units Levalbuterol HCl (Xopenex) 1.25 mg IH BID [facility] Last Admin: 07/03/17 09:07 Dose: 1.25 mg Bisoprolol [Zebeta] (10 Mg) 10 mg PO DAILY [facility] Last Admin: 07/02/17 09:02 Dose: 10 mg Pantoprazole Sodium (Protonix Ec Tab) 40 mg PO 0600 [facility] PRN Reason: Protocol Last Admin: 07/03/17 06:40 Dose: 40 mg - Labs Labs: 07/03/17 06:10 07/03/17 06:10 - Constitutional Appears: Chronically Ill - Head Exam Head Exam: NORMAL INSPECTION - ENT Exam ENT Exam: Mucous Membranes Moist - Neck Exam Neck Exam: absent: Meningismus - Respiratory Exam Respiratory Exam: Decreased Breath Sounds - Cardiovascular Exam Cardiovascular Exam: +S1, +S2 - GI/Abdominal Exam GI & Abdominal Exam: Soft. absent: Tenderness Assessment and Plan - Assessment and Plan (Free Text) Plan: Assessment S/P systemic viral illness with Influenza on top of acute CHF exacerbation, S/P HCAP lS/P eft groin skin and skin structure infection / vulvar abscess with MRSA DM HTN pulmonary HTN chronic CHF atrial fibrillation on anticoagulation Plan completed 7 days of cefepime and doxycycline for HCAP and the MRSA vulvar abscess completed 5 days of Tamiflu will continue to monitor clinically off antibiotics
[2017-07-04] MEDS: Pantoprazole 40 mg EC Tab PO SCH (06:51)
[2017-07-04] MEDS: Insulin Detemir 100 units/ml Vial (Levemir) SC SCH ×2 (06:52→21:38)
[2017-07-04] MEDS: Insulin Reg-MEDIUM-Coverage SC SCH ×4 (06:52→21:38)
[2017-07-04 07:09] LABS: HEMOGLOBIN 10.6 g/dL (12.0-16.0); MEAN CELL VOLUME 95.2 fl (80.0-105.0); MEAN CORPUSCULAR HGB CONC 29.4 g/dl (31.0-37.0); MEAN PLATELET VOLUME 11.9 fl (7.0-11.0); RBC 3.78 10^6/uL (3.5-6.1); RED CELL DISTRIBUTION WIDTH 16.1 % (11.5-14.5); WHITE BLOOD COUNT 17.2 10^3/ul (4.5-11.0)
[2017-07-04 08:40] LABS: ALB/GLOB RATIO 1.1 (1.1-1.8); ALBUMIN 3.1 g/dL (3.0-4.8); CALCIUM 9.7 mg/dL (8.4-10.5)
[2017-07-04] MEDS: Levalbuterol 1.25 MG/3 ML Inhal Soln UD IH SCH ×2 (09:42→19:53)
[2017-07-04] MEDS: BISOPROLOL 10 MG PO SCH (09:44)
--- NOTE | 2017-07-04 09:51 | CP.PCM.PN ---
<Maya Zambrano - Last Filed: 07/04/17 09:48> Subjective - Date & Time of Evaluation Date of Evaluation: 07/04/17 Time of Evaluation: 09:48 - Subjective Subjective: Podiatry Progress Note - Dr. Camacho/Dr. Jones 82 year old female patient PMHx of DM, HTN, pulmonary HTN, chronic CHF, atrial fibrillation seen and evaluated at bedside for bilateral LE chronic venous stasis with ulceration to right leg. Patient is AAOx3 and is in NAD. Patient reports her shortness has improved. Still SOB. She denies nausea, fever, vomiting, chest pains or chills. Denies of any other pedal complains at this time. Objective - Vital Signs/Intake and Output Vital Signs (last 24 hours): Temp Pulse Resp BP Pulse Ox 98.3 F 78 20 112/76 94 L 07/03/17 16:34 07/03/17 16:34 07/03/17 16:34 07/03/17 16:34 07/03/17 16:34 Intake and Output: 07/04/17 07/04/17 06:59 18:59 Intake Total 100 Output Total 0 Balance 100 - Medications Medications: Current Medications Acetaminophen (Tylenol 325mg Tab) 650 mg PO Q4H PRN; Protocol PRN Reason: Fever >100.4 F Apixaban (Eliquis) 2.5 mg PO BID [facility] PRN Reason: Protocol Last Admin: 07/03/17 17:55 Dose: 2.5 mg Aspirin (Aspirin Chewable) 81 mg PO 0800 [facility] PRN Reason: Protocol Last Admin: 07/03/17 09:57 Dose: Not Given Atorvastatin Calcium (Lipitor) 80 mg PO DIN [facility] PRN Reason: Protocol Last Admin: 07/03/17 17:55 Dose: 80 mg Ferrous Sulfate (Feosol) 324 mg PO DAILY [facility] Last Admin: 07/03/17 11:56 Dose: Not Given Insulin Detemir (Levemir) 15 unit SC ACBHS [facility] PRN Reason: Protocol Last Admin: 07/04/17 06:52 Dose: Not Given Insulin Human Regular (Humulin R Med) 0 units SC ACHS [facility] PRN Reason: Protocol Last Admin: 07/04/17 06:52 Dose: Not Given Levalbuterol HCl (Xopenex) 1.25 mg IH BID [facility] Last Admin: 07/04/17 09:42 Dose: 1.25 mg Bisoprolol [Zebeta] (10 Mg) 10 mg PO DAILY [facility] Last Admin: 07/03/17 09:57 Dose: Not Given Pantoprazole Sodium (Protonix Ec Tab) 40 mg PO 0600 [facility] PRN Reason: Protocol Last Admin: 07/04/17 06:51 Dose: Not Given - Labs Labs: 07/04/17 06:30 07/04/17 06:30 - Constitutional Appears: Well, Non-toxic, No Acute Distress - Extremities Exam Additional comments: Vasc: DP and PT nonpalpable secondary to edema b/l. CFT <3 seconds to all digits x10. Temperature graduent warm to warm. +1 pitting edema to bilateral lower extremities. Neuro: Gross sensation diminished bilaterally. Derm: Superficial ulceration noted to anterior aspect of right leg - noted to have a mixed fibrogranular base and mild erythema periwound; mild serosanguinous drainage noted; no purulence, fluctuance, malodor, undermining, noted. Venous stasis dermatitis present bilaterally. Ulceration noted to posterior aspect of left heel. Drainage has improved. Less drainage noted today. Ortho: No pain on palpation bilateral lower extremities. - Neurological Exam Neurological Exam: Alert, Awake, Oriented x3 - Psychiatric Exam Psychiatric exam: Normal Affect, Normal Mood Assessment and Plan - Assessment and Plan (Free Text) Assessment: 82F with venous stasis ulceration right leg and bilateral lower extremity edema- stable Plan: Patient seen and evaluated with attending Dr. Camacho Afebrile, WBC 17.2 on 07/01/17 Continue abx per ID - Zyvox, Doxycycline, & Cefepime Clean ulceration and LE with saline solution and dressed with gauze and optifoam Wounds appear to be stable at this time C/w Multipodus boots- to be worn at all times while in bed Podiatry will continue to follow while patient in house <Vahid Camacho - Last Filed: 07/04/17 10:10> Objective - Vital Signs/Intake and Output Vital Signs (last 24 hours): Temp Pulse Resp BP Pulse Ox 98.3 F 78 20 112/76 94 L 07/03/17 16:34 07/03/17 16:34 07/03/17 16:34 07/03/17 16:34 07/03/17 16:34 Intake and Output: 07/04/17 07/04/17 06:59 18:59 Intake Total 100 Output Total 0 Balance 100 - Medications Medications: Current Medications Acetaminophen (Tylenol 325mg Tab) 650 mg PO Q4H PRN; Protocol PRN Reason: Fever >100.4 F Apixaban (Eliquis) 2.5 mg PO BID [facility] PRN Reason: Protocol Last Admin: 07/04/17 09:43 Dose: 2.5 mg Aspirin (Aspirin Chewable) 81 mg PO 0800 [facility] PRN Reason: Protocol Last Admin: 07/04/17 09:43 Dose: 81 mg Atorvastatin Calcium (Lipitor) 80 mg PO DIN [facility] PRN Reason: Protocol Last Admin: 07/03/17 17:55 Dose: 80 mg Ferrous Sulfate (Feosol) 324 mg PO DAILY [facility] Last Admin: 07/04/17 09:44 Dose: 324 mg Insulin Detemir (Levemir) 15 unit SC ACBHS [facility] PRN Reason: Protocol Last Admin: 07/04/17 06:52 Dose: Not Given Insulin Human Regular (Humulin R Med) 0 units SC ACHS [facility] PRN Reason: Protocol Last Admin: 07/04/17 06:52 Dose: Not Given Levalbuterol HCl (Xopenex) 1.25 mg IH BID [facility] Last Admin: 07/04/17 09:42 Dose: 1.25 mg Bisoprolol [Zebeta] (10 Mg) 10 mg PO DAILY [facility] Last Admin: 07/04/17 09:44 Dose: 10 mg Pantoprazole Sodium (Protonix Ec Tab) 40 mg PO 0600 [facility] PRN Reason: Protocol Last Admin: 07/04/17 06:51 Dose: Not Given - Labs Labs: 07/04/17 06:30 07/04/17 06:30 Attending/Attestation - Attestation I have personally seen and examined this patient.: Yes I have fully participated in the care of the patient.: Yes I have reviewed all pertinent clinical information, including history, physical exam and plan: Yes
--- NOTE | 2017-07-04 14:45 | PN ---
DATE: 07/04/2017 SUBJECTIVE: The patient is in bed, in no acute distress, nontoxic, was seen earlier this morning. The patient's family member is asleep in the chair. PHYSICAL EXAMINATION: VITAL SIGNS: Temperature is 97, blood pressure is 112/70, respiratory rate of 18. HEENT: Examination of HEENT is unremarkable. NECK: Supple. LUNGS: Have decreased breath sounds. HEART: Normal S1, S2. ABDOMEN: Soft, nontender. LABORATORY DATA: Laboratory examination reveals a white count of 17,200, hemoglobin of 10, platelets of 217. Chemistries reveals a BUN of 86, creatinine of 4.0. Microbiology is noted. ASSESSMENT AND PLAN: An 82-year-old with systemic viral illness and influenza on top of acute congestive heart failure exacerbation, status post healthcare-associated pneumonia and left groin skin structure infection and abscess with methicillin-resistant Staphylococcus aureus. Completed antibiotics. Currently off of antibiotics. We will monitor and follow closely with you. Chago Hilliard MD
[2017-07-04 17:34] VITALS: BP 159/98; PULSE 83; RESP 14; TEMP 98.5; O2SAT 89
--- NOTE | 2017-07-04 22:01 | CP.PCM.PRO ---
Pronouncement of Note - Clinical Findings Physical Exam: No Response Verbal/Painful Stimuli, Absent Peripheral Pulses{ Carotid & Femoral}, Absent Heart & Breath Sounds, No Pupillary Light Reflex, No Corneal Reflex, Pupils Fixed & Dilated, Absence of Vital Signs - Pronouncement Time Time of Pronouncement of : 21:45 - Notifications Pronouncement Notifications: Family Notified, Atending Notified Student Driving Instructor Notified: No - Autopsy Autopsy Requested: No - [place]: [id number] Additional Comments: [employer] called because patient found unresponsive by nurses. No vital signs, breathing, pulse palpable. No heart sounds auscultated. Pupils fixed and dilated. Pt DNR/DNI. Pt pronounced at 9:45 pm.
--- NOTE | 2017-07-06 10:19 | PN ---
DATE: 07/04/2017 PULMONARY PROGRESS NOTE SUBJECTIVE: The patient was seen and examined on Transitional Care Unit. She appears lethargic. She is on nasal cannula and she is moderately short of breath. PHYSICAL EXAMINATION: VITAL SIGNS: Temperature is 98.9, pulse is 84, respirations 20 to 24, blood pressure is 110/70, oxygen saturation on nasal cannula not reported. HEAD, EAR, NOSE AND THROAT: Normocephalic and atraumatic. NECK: Positive JVDs. CARDIOVASCULAR: II/ systolic ejection murmur. Positive for gallop. PULMONARY: Diminished breath sounds at both lung bases with bilateral crackles. No wheezing. EXTREMITIES: 2+ pedal edema. GI: Soft, nontender with no organomegaly. SKIN: Lesser edema, both lower extremities. No rashes. NEUROLOGIC: Limited at the present time. ASSESSMENT: 1. Chronic respiratory failure. 2. Congestive heart failure. 3. Chronic obstructive pulmonary disease. 4. Pneumonia, right lower lobe. 5. Pulmonary hypertension. PLAN: The patient did not wear her CPAP at night. She was taking off CPAP. After long discussion with family, her prognosis is poor. All current measures to treat her chronic obstructive pulmonary disease and congestive heart failure continuing; however, the patient is failing. We will follow on as needed basis. Ric Guadalupe MD
--- NOTE | 2017-07-07 01:09 | DS ---
HOSPITAL COURSE: Patient was admitted to transitional care unit. She had multiple problems including respiratory distress, pulmonary hypertension, methicillin-resistant Staphylococcus aureus, sacral decubitus ulcer, acute kidney injury, hypokalemia. She was placed on comfort care by the daughter. She was declared on 07/04/2017 at 9:45 p.m. Daughter was informed about the demise of the patient. Dana Seo MD
== END 2017-07-04 21:45 | DRG 871 ==
LOC: TRCU 20:28
PROVIDERS: ADMIT Internal Medicine Nephrology; ATTEND Internal Medicine Nephrology
PROC: F07Z9FZ Gait Training/Functional Ambulation Treatment using Assistive, Adaptive, Supportive or Protective Equipment (ICD-10-PCS; principal; 2017-06-30)
PROC: F07M6ZZ Therapeutic Exercise Treatment of Musculoskeletal System - Whole Body (ICD-10-PCS; 2017-06-30)
PROC: F08Z2ZZ Grooming/Personal Hygiene Treatment (ICD-10-PCS; 2017-06-30)
PROC: F08Z1ZZ Dressing Techniques Treatment (ICD-10-PCS; 2017-06-30)
PROC: F08Z0ZZ Bathing/Showering Techniques Treatment (ICD-10-PCS; 2017-06-30)
PROC: F08Z3ZZ Feeding/Eating Treatment (ICD-10-PCS; 2017-06-30)
DX: A41.9 Sepsis, unspecified organism (principal); J11.00 Influenza due to unidentified influenza virus with unspecified type of pneumonia; L89.159 Pressure ulcer of sacral region, unspecified stage; J96.10 Chronic respiratory failure, unspecified whether with hypoxia or hypercapnia; E11.22 Type 2 diabetes mellitus with diabetic chronic kidney disease; E11.42 Type 2 diabetes mellitus with diabetic polyneuropathy; E11.622 Type 2 diabetes mellitus with other skin ulcer; I27.20 Pulmonary hypertension, unspecified; I13.0 Hypertensive heart and chronic kidney disease with heart failure and stage 1 through stage 4 chronic kidney disease, or unspecified chronic kidney disease; N17.9 Acute kidney failure, unspecified; N18.4 Chronic kidney disease, stage 4 (severe); J44.0 Chronic obstructive pulmonary disease with (acute) lower respiratory infection; L97.919 Non-pressure chronic ulcer of unspecified part of right lower leg with unspecified severity; N76.4 Abscess of vulva; I48.91 Unspecified atrial fibrillation; I50.9 Heart failure, unspecified; I83.019 Varicose veins of right lower extremity with ulcer of unspecified site; I87.8 Other specified disorders of veins; L02.92 Furuncle, unspecified; Y95 Nosocomial condition; E78.00 Pure hypercholesterolemia, unspecified; E87.6 Hypokalemia; Z66 Do not resuscitate; Z79.01 Long term (current) use of anticoagulants; Z87.01 Personal history of pneumonia (recurrent); Z87.440 Personal history of urinary (tract) infections; Z87.891 Personal history of nicotine dependence; Z90.49 Acquired absence of other specified parts of digestive tract; Z99.81 Dependence on supplemental oxygen; B95.62 Methicillin resistant Staphylococcus aureus infection as the cause of diseases classified elsewhere